=== PATIENT | male | born 1960 | race Caucasian/White ===

== ENCOUNTER 2016-08-09 20:53 | Emergency (ER) | payer MEDICARE ==
[2016-08-09] MEDS ORDERED: PANTOPRAZOLE SODIUM 40 MG VIAL IV ONE (22:07)
[2016-08-09] MEDS ORDERED: METOCLOPRAMIDE HCL ORAL SOLN 10 MG/10 ML UDCUP PO ONE (22:08)
[2016-08-09] MEDS ORDERED: LIDOCAINE 2% VISCOUS SOLN 20 ML UDCUP PO ONE (22:08)
[2016-08-09] MEDS ORDERED: MAG HYDROX/AL HYDROX/SIMETH SUSP 30 ML UDCUP PO ONE (22:08)
--- NOTE | 2016-08-09 22:20 | ER Document Report ---
ED General - General Chief Complaint: Chest Pain Stated Complaint: CHEST PAIN Mode of Arrival: Ambulatory Information source: Patient Notes: This is a 55-year-old male with multiple medical problems to include diabetes, hypertension, chronic pain and chest pain who presents with chest discomfort for the past 3 or 4 hours. He states that he was just sitting on the couch when he developed sudden onset of sharp central chest pain, radiating to L neck and LUE. No shortness of breath. Nausea, no vomiting. He does say that he has broken out in a sweat with this. The pain has been constant for the past 3- 4 hours. Of note, pt states that he last had a cardiac cath at [facility] March 2016 and was told that it was "normal". 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 He is allergic to aspirin. Last po was nachos and taco at about 1300 today. Also, pt has history of chronic pain and has been trying to stop taking his daily dilaudid... he has not had it in several days. TRAVEL OUTSIDE OF THE [place] IN LAST 30 DAYS: No - Related Data Allergies/Adverse Reactions: ketorolac tromethamine [From Toradol] Allergy (Unknown, Verified 10/23/13 10:51) promethazine HCl [From Phenergan] Allergy (Unknown, Verified 10/23/13 10:51) aspirin [Aspirin] Allergy (Verified 10/23/13 10:51) Hives Past Medical History - General Information source: Patient, [facility] Records - Social History Smoking Status: Former Smoker Frequency of alcohol use: None Drug Abuse: None Lives with: Family Family History: CAD Patient has suicidal ideation: No Patient has homicidal ideation: No - Past Medical History Cardiac Medical History: Reports: Hx DVT, Hx Hypertension, Hx Pulmonary Embolism Pulmonary Medical History: Denies: Hx Tuberculosis Endocrine Medical History: Reports: Hx Diabetes Mellitus Type 2 Renal/ Medical History: Denies: Hx Peritoneal Dialysis GI Medical History: Reports: Hx Gastroesophageal Reflux Disease, Other - pancreatitis Psychiatric Medical History: Reports: Hx Depression Past Surgical History: Reports: Hx Abdominal Surgery - x3 related to the pancreatitis and pseudocyst, Hx Cholecystectomy, Hx Orthopedic Surgery - Right femur, right knee - Immunizations Hx Diphtheria, Pertussis, Tetanus Vaccination: Yes Review of Systems - Review of Systems Notes: REVIEW OF SYSTEMS: CONSTITUTIONAL : Denies fever, chills, or sweats. Denies recent illness. EENT: Denies eye, ear, throat, or mouth pain or symptoms. Denies nasal or sinus congestion. CARDIOVASCULAR: As per history of present illness RESPIRATORY: Denies cough, cold, or chest congestion. Denies shortness of breath, difficulty breathing, or wheezing. GASTROINTESTINAL: Denies abdominal pain. Denies nausea, vomiting, or diarrhea. GENITOURINARY: Denies difficulty urinating, painful urination, burning, frequency, or blood in urine. MUSCULOSKELETAL: Denies neck or back pain or joint pain or swelling. SKIN: Denies rash or skin lesions. HEMATOLOGIC : Denies easy bruising or bleeding. LYMPHATIC: Denies swollen, enlarged glands. NEUROLOGICAL: Denies altered mental status or loss of consciousness. Denies headache. PSYCHIATRIC: Denies anxiety or stress or depression. ALL OTHER SYSTEMS REVIEWED AND NEGATIVE. Physical Exam - Vital signs Vitals: Temp Pulse Resp BP Pulse Ox 98.7 F 88 20 141/84 H 97 08/09/16 21:06 08/09/16 21:06 08/09/16 21:06 08/09/16 21:06 08/09/16 21:06 - Notes Notes: PHYSICAL EXAMINATION: GENERAL: Well-appearing, obese adult male pleasant and conversant and in no acute distress. HEAD: Atraumatic, normocephalic. EYES: Pupils equal round and reactive to light, extraocular movements intact, sclera anicteric, conjunctiva are normal. ENT: nares patent, oropharynx clear without exudates. Moist mucous membranes. NECK: Normal range of motion, supple without lymphadenopathy LUNGS: Breath sounds clear to auscultation bilaterally and equal. No wheezes rales or rhonchi. HEART: Regular rate and rhythm without murmurs ABDOMEN: Soft, mild diffuse TTP (pt states this is his chronic pain), multiple well healed surgical scars on abdominal wall, normoactive bowel sounds. No guarding, no rebound. No masses appreciated. EXTREMITIES: Normal range of motion, no pitting or edema. NEUROLOGICAL: Cranial nerves grossly intact. Normal speech. No gross focal motor or sensory deficits appreciated. PSYCH: Normal mood, normal affect. SKIN: Warm, Dry, normal turgor, no rashes or lesions noted. Course - Re-evaluation Re-evalutation: 08/10/16 01:47 Pt reports continued pain 6-710 after Dilaudid. CTA negative for PE although technically limited study. EKG is abnormal here, but old EKG not available. Have placed call to [facility] cardiac connection to discuss with trial manager , as I do not have access to old EKG or to cath report from last year. 08/10/16 02:22 Discussed with cardiology at [facility] Dr. Patel who confirms that cardiac cath performed 03/26/16 demonstrated normal coronary arteries. She will find old EKG and will call me back. 08/10/16 02:32 Dr. Patel confirms that prior EKG shows downsloping ST depression in lateral leads. 08/10/16 02:47 At this point, chest pain has resolved, EKG unchanged, Troponin neg x 2 and pt with normal coronaries on cath 6 months ago. Pt is stable for discharge from a cardiac standpoint. I feel that some component of this pain may be secondary to his decreased daily narcotic use recently. He is encouraged to call his metal milling machine operator and his PCP tomorrow to arrange follow up this week. Also follow up with pain clinic. Strict return precautions discussed. He and his family are very comfortable with this plan, all questions answered. - Vital Signs Vital signs: Temp Pulse Resp BP Pulse Ox 98.7 F 88 17 132/87 H 96 08/09/16 21:06 08/09/16 21:06 08/10/16 02:01 08/10/16 02:01 08/10/16 02:01 - Laboratory Result Diagrams: 08/09/16 22:14 08/09/16 22:14 Laboratory results interpreted by me: 08/09/16 08/09/16 22:14 22:14 RDW 14.3 H Glucose 183 H Creatine Kinase 48 L - Diagnostic Test Radiology reviewed: Reports reviewed - Chest x-ray negative Discharge - Discharge Clinical Impression: Chest pain Qualifiers: Chest pain type: unspecified Qualified Code(s): R07.9 - Chest pain, unspecified Condition: Stable Disposition: HOME, SELF-CARE Additional Instructions: CHEST PAIN OF UNCLEAR CAUSE: The exact cause of your chest pain isn't clear. Fortunately, there is no evidence of a dangerous medical condition. Further testing may be required to find the source of the pain. Most often, we find that this pain is coming from the chest wall -- the muscles or rib joints in the chest. But chest pain can come from the lung and lung lining, the esophagus, the heart valves or heart lining, and even the stomach or gallbladder. Rest. Eat lightly until the pain is gone. We may prescribe medicine for pain and inflammation. You should call the physician immediately if the pain radiates to the shoulder, jaw or arms; if you start to run a fever or develop a cough; or if you develop shortness of breath, or other new or alarming symptoms. ACID REFLUX DISEASE (GERD): Gastro-Esophageal Reflux Disease (GERD) is caused by stomach acid refluxing back up into the esophagus. The valve at the end of the esophagus may be weak. This is common in persons with a hiatal hernia. GERD symptoms can include indigestion, chest pain, heartburn, or food "sticking." Certain foods, alcohol, and aspirin can make GERD worse. Treatment depends on the severity. Usually, antacids or acid-suppressing medicines are used. When the esophagus is acutely inflamed, the physician will often prescribe membrane-protective drugs such as Carafate. Some patients benefit from medication such as Reglan that tightens the valve at the top of the stomach. Avoid those foods that bring on your symptoms. For many people, these foods are coffee, chocolate, onions, garlic, and carbonated drinks. Don't use alcohol, aspirin, caffeine, or tobacco. Don't eat late at night -- within 4 hours of bedtime. Don't over-eat. If necessary, elevate the head of your bed about 4 inches so that stomach acid will not roll up into your esophagus. Call the doctor if you develop severe chest pain, inability to swallow fluids, fever, or worsening symptoms. FOLLOW-UP CARE: If you have been referred to a physician for follow-up care, call the physician s office for an appointment as you were instructed or within the next two days. If you experience worsening or a significant change in your symptoms, notify the physician immediately or return to the Emergency Department at any time for re-evaluation. As we discussed, please call your PCP and your metal milling machine operator tomorrow to discuss close follow up this week. Return to the ER for any worsening symptoms or concerns. Referrals: EJ MIRANDA MD [Primary Care Provider] - Follow up in 3-5 days
[2016-08-09 22:28] LABS: ABSOLUTE BASOPHILS # (AUTO) 0.1 10^3/uL (0.0-0.2); ABSOLUTE EOSINOPHILS # (AUTO) 0.1 10^3/uL (0.0-0.6); ABSOLUTE LYMPHOCYTES (AUTO) 1.4 10^3/uL (0.5-4.7); ABSOLUTE MONOCYTES (AUTO) 0.7 10^3/uL (0.1-1.4); ABSOLUTE NEUT (AUTO) 4.8 10^3/uL (1.7-8.2); BASOPHILS % (AUTO) 0.8 % (0-2); EOSINOPHILS % (AUTO) 1.2 % (0-6); HEMATOCRIT 41.8 % (37.9-51.0); HEMOGLOBIN 14.2 g/dL (13.5-17.0); HGB HCT DIFFERENCE 0.8; MEAN CORPUSCULAR HEMOGLOBIN 30.1 pg (27.0-33.4); MEAN CORPUSCULAR VOLUME 89 fl (80-97); RED BLOOD COUNT 4.72 10^6/uL (4.35-5.55); RED CELL DISTRIBUTION WIDTH 14.3 % (11.5-14.0)
[2016-08-09 22:52] LABS: ALANINE AMINOTRANSFERASE 33 U/L (21-72); ALBUMIN 4.1 g/dL (3.5-5.0); ALKALINE PHOSPHATASE 96 U/L (38-126); ANION GAP 10 (5-19); ASPARTATE AMINO TRANSFERASE 22 U/L (17-59); BILIRUBIN,DIRECT 0.2 mg/dL (0.0-0.4); BILIRUBIN,TOTAL 0.5 mg/dL (0.2-1.3); BLOOD UREA NITROGEN 16 mg/dL (7-20); CALCIUM 9.7 mg/dL (8.4-10.2); CARBON DIOXIDE 26 mmol/L (22-30); CHLORIDE 103 mmol/L (98-107); CREATINE KINASE 48 U/L (55-170); CREATININE RESULT 0.96 mg/dL (0.52-1.25); DIGOXIN 0.96 ng/mL (0.8-2.0); GLUCOSE 183 mg/dL (75-110); POTASSIUM 4.5 mmol/L (3.6-5.0); SODIUM 138.8 mmol/L (137-145); TOTAL PROTEIN 7.2 g/dL (6.3-8.2)
[2016-08-09 23:03] LABS: TROPONIN I < 0.012 ng/mL
[2016-08-09] MEDS ORDERED: HYDROMORPHONE HCL INJ/PF 2 MG/ML AMPULE IV ONE (23:25)
--- NOTE | 2016-08-10 00:11 | EKG REPORT ---
SEVERITY:- NORMAL ECG - SINUS RHYTHM : Confirmed by: Lali Max 10-Aug-2016 00:11:10
--- NOTE | 2016-08-10 00:13 | EKG REPORT ---
SEVERITY:- ABNORMAL ECG - SINUS RHYTHM NONSPECIFIC INTRAVENTRICULAR CONDUCTION DELAY : Confirmed by: Lali Max 10-Aug-2016 00:11:30
[2016-08-10] MEDS ORDERED: HYDROMORPHONE HCL INJ/PF 2 MG/ML AMPULE IV ONE (01:41)
[2016-08-10 03:24] VITALS: BP 118/76
== END 2016-08-10 03:45 | disposition home or self-care (01) ==
LOC: ER 20:53
DX: R07.9 Chest pain, unspecified (principal); R11.0 Nausea; R61 Generalized hyperhidrosis; E11.9 Type 2 diabetes mellitus without complications; I10 Essential (primary) hypertension; G89.29 Other chronic pain; R10.817 Generalized abdominal tenderness; Z88.6 Allergy status to analgesic agent; Z88.8 Allergy status to other drugs, medicaments and biological substances; Z87.891 Personal history of nicotine dependence; Z86.718 Personal history of other venous thrombosis and embolism; Z86.711 Personal history of pulmonary embolism
CPT/HCPCS: 93005; 96376; 99285; 96374; 96375; 36415; 82553; 82550; 80162; 85025; 80053; 84484; 71010; 71275; 93010; J3490; A9270; J1170; C9113; S0164

== ENCOUNTER 2016-08-28 08:34 | Day surgery (SDC) | payer MEDICARE ==
[~2016-08-28 08:34] MED LIST: CHONDR SU A NA/HYALUR INTRAOC KIT (SURGICARE) ONE; EPINEPHRINE INJ/PF 1 MG/1 ML AMPULE ONE; KETOROLAC TROMETHAMINE 0.45% 4 DROP/0.4 ML DROPERETTE OS PRN; LIDOCAINE 1% INJ-PF (10 MG/ML) 30 ML SDV ONE
[2016-08-28] MEDS: TROPICAMIDE 1% OPH SOLN 3 ML OS PRN ×3 (08:55→09:16)
[2016-08-28] MEDS: BESIFLOXACIN HCL 0.6% OPH SUSP 5 ML BOTTLE OS PRN ×4 (08:55→10:04)
[2016-08-28] MEDS: CYCLOPENTOLATE 0.2%/PHENYLEPHRINE 1% OPH SOLN 2 ML OS PRN ×3 (08:55→09:16)
[2016-08-28] MEDS: TETRACAINE HCL 0.5% OPH SOLN 2 ML OS PRN ×3 (08:56→09:32)
[2016-08-28] MEDS ORDERED: MIDAZOLAM 2 MG/2 ML INJ ONE ×2 (08:59→10:11)
--- NOTE | 2016-08-28 19:43 | SURGICARE DISCHARGE SUMMARY E ---
[facility] Discharge Summary NAME: CARMEN RAZO AGE: 56Y ADMITTED: 08/28/2016 DISCHARGED: 08/28/2016 HISTORY OF PRESENT ILLNESS AND HOSPITAL COURSE: This is a 65-year-old male who underwent complex cataract extraction of with use of a Malyugin ring. DIAGNOSES: 1. Cataract, left eye. 2. Pupil miosis, left eye. HOSPITAL COURSE: He underwent surgery because he was having problems seeing people's faces and feels off balance secondary to blurred vision in his left eye. DISCHARGE INSTRUCTIONS: 1. He should be on a regular diet. 2. No bending at the waist. 3. No heavy lifting. 4. He should use Besivance, Ilevro, and Durezol at 3 p.m. and 8 p.m. and sleep with a rigid shield. 5. I will see him for his one-day postoperative tomorrow. DICTATING PHYSICIAN: ERNESTINE KRISHNAMURTHY M.D. [id number] PHY#: [id number] ID: [id number] JOB#: [id number] ACCT: [id number] cc:ERNSETINE KRISHNAMURTHY M.D. >
--- NOTE | 2016-08-28 19:43 | SURGICARE OPERATIVE REPORT E ---
[facility] Operative Report NAME: CARMEN RAZO AGE: 56Y DATE OF SURGERY: 08/28/2016 ROOM: PREOPERATIVE DIAGNOSES: 1. Cataract, left eye. 2. Pupil miosis, left eye. POSTOPERATIVE DIAGNOSES: 1. Cataract, left eye. 2. Pupil miosis, left eye. OPERATION: Complex cataract extraction with use of Malyugin ring due to a very miotic pupil. SURGEON: ERNESTINE KRISHNAMURTHY M.D. ANESTHESIA: Topical. PROCEDURE: After obtaining appropriate consent, the patient's right eye was prepped and draped in sterile fashion as well as the surgeon in a sterile manner and cataract surgery was started. First a paracentesis blade was used to make a small side-port incision. Viscoelastic was used to inflate the anterior chamber. Next a 2.4 mm incision was made with the paracentesis blade. A continuous capsulorrhexis incision was made using a cystotome and Utrata forceps. Following this hydrodissection was carried out to make the lens fully loose and mobile and it was rotated 90 degrees. Following this, a ipvpfp-vpg-jlocert technique was used to phacoemulsify the lens with a CDE of 11.09. The remaining cortex was removed with irrigation/aspiration. Provisc was instilled into the capsular bag to inflate the bag. A SN60WF, 21.5 diopter lens was placed. The remaining viscoelastic material was removed with irrigation/aspiration. Following this, a 10-0 nylon suture was used to close the incision and it was found to be watertight. Vigamox was instilled in the eye and a protective shield was placed over the eye. The patient returned to the postoperative recovery in stable condition. Prior to making the capsulorrhexis, a Malyugin ring was inserted due to a very miotic pupil. This was removed at the end of the case. DICTATING PHYSICIAN: ERNESTINE KRISHNAMURTHY M.D. [id number] PHY#: [id number] ID: [id number] JOB#: [id number] ACCT: [id number] cc:ERNESTINE KRISHNAMURTHY M.D. >
== END 2016-08-28 11:01 | disposition home or self-care (01) ==
LOC: SC 08:34
PROVIDERS: ATTEND Internal Medicine
PROC: 08RK3JZ Replacement of Left Lens with Synthetic Substitute, Percutaneous Approach (ICD-10-PCS; principal; 2016-08-28 09:30)
DX: H25.042 Posterior subcapsular polar age-related cataract, left eye (principal); H57.03 Miosis; E11.9 Type 2 diabetes mellitus without complications; K21.9 Gastro-esophageal reflux disease without esophagitis; I10 Essential (primary) hypertension; I49.9 Cardiac arrhythmia, unspecified; Z79.84 Long term (current) use of oral hypoglycemic drugs; Z79.899 Other long term (current) drug therapy; Z88.6 Allergy status to analgesic agent; Z88.5 Allergy status to narcotic agent; Z88.8 Allergy status to other drugs, medicaments and biological substances; Z87.891 Personal history of nicotine dependence; Z79.01 Long term (current) use of anticoagulants
CPT/HCPCS: 66982; 82962; V2632; J2250; J3490 ×2; A9270; J0171; 142

== ENCOUNTER 2016-12-27 21:22 | Observation (INO) | payer MEDICARE ==
[2016-12-27] MEDS ORDERED: NORMAL SALINE 1000 ML 1,000 ML IV ONE (21:31)
--- NOTE | 2016-12-27 21:32 | ER Document Report ---
ED General - General Stated Complaint: CHEST PAIN,SHORTNESS OF BREATH Time Seen by Provider: 12/27/16 21:29 Cannot obtain history due to: Unstable vital signs Notes: Patient is a 56-year-old male past medical history of a pulmonary embolus in the past currently on apixaban, hypertension, morbid obesity, who presents with acute onset of bilateral chest pain. Patient describes it as an abrupt onset of bilateral chest pressure without radiation of the pain. Nothing improves or worsens the pain. Notes an associated dyspnea with nausea but no vomiting. States this feels similar to when he had a pulmonary embolus in the past. Denies any missed doses of apixaban. He does arrive by EMS. History is limited at time of arrival is patient is ill in appearance, tachycardic and tachypneic TRAVEL OUTSIDE OF THE [place] IN LAST 30 DAYS: No - Related Data Allergies/Adverse Reactions: ketorolac tromethamine [From Toradol] Allergy (Unknown, Verified 12/27/16 22:34) promethazine HCl [From Phenergan] Allergy (Unknown, Verified 12/27/16 22:34) aspirin [Aspirin] Allergy (Verified 12/27/16 22:34) Hives Home Medications: Current Home Medications Cyanocobalamin (Vitamin B-12) [Vitamin B-12] 1,000 mcg SL DAILY 12/27/16 [ History] Fluticasone Propionate [Flonase Nasal Laura 50 Mcg/Laura 16 gm] 2 puff IH DAILY 12/27/16 [History] Metoprolol Tartrate [Lopressor] 25 mg PO BID 12/27/16 [History] Red Yeast Rice 1,200 mg PO BID 12/27/16 [History] Valacyclovir HCl [Valacyclovir] 500 mg PO DAILY 12/27/16 [History] Past Medical History - General Information source: Patient - Social History Smoking Status: Never Smoker Frequency of alcohol use: None Drug Abuse: None Lives with: Spouse/Significant other Family History: CAD - Past Medical History Cardiac Medical History: Reports: Hx DVT, Hx Hypertension, Hx Pulmonary Embolism Denies: Hx Heart Attack Pulmonary Medical History: Denies: Hx Asthma, Hx Tuberculosis Neurological Medical History: Denies: Hx Cerebrovascular Accident, Hx Seizures Endocrine Medical History: Reports: Hx Diabetes Mellitus Type 2 Renal/ Medical History: Denies: Hx Peritoneal Dialysis GI Medical History: Reports: Hx Gastroesophageal Reflux Disease. Denies: Hx Hepatitis, Hx Hiatal Hernia, Hx Ulcer Psychiatric Medical History: Reports: Hx Depression Infectious Medical History: Denies: Hx Hepatitis Past Surgical History: Reports: Hx Abdominal Surgery - x3 related to the pancreatitis and pseudocyst, Hx Cholecystectomy, Hx Orthopedic Surgery - Right femur, right knee. Denies: Hx Open Heart Surgery, Hx Pacemaker - Immunizations Hx Diphtheria, Pertussis, Tetanus Vaccination: Yes Review of Systems - Review of Systems Notes: Constitutional: Negative for fever. HENT: Negative for sore throat. Eyes: Negative for visual changes. Cardiovascular: Positive for chest pain. Respiratory: Positive for shortness of breath. Gastrointestinal: Negative for abdominal pain, vomiting or diarrhea. Genitourinary: Negative for dysuria. Musculoskeletal: Negative for back pain. Skin: Negative for rash. Neurological: Negative for headaches, weakness or numbness. 10 point ROS negative except as marked above and in HPI. Physical Exam - Vital signs Vitals: Pulse Ox 94 12/27/16 21:24 Interpretation: Tachycardic, Tachypneic Notes: PHYSICAL EXAMINATION: GENERAL: Appears uncomfortable, diaphoretic HEAD: Atraumatic, normocephalic. EYES: Pupils equal round and reactive to light, extraocular movements intact, sclera anicteric, conjunctiva are normal. ENT: nares patent, oropharynx clear without exudates. Moderately dry mucous membranes. NECK: Normal range of motion, supple without lymphadenopathy LUNGS: Breath sounds clear to auscultation bilaterally and equal. No wheezes rales or rhonchi. HEART: Regular tachycardia without murmurs ABDOMEN: Soft, nontender, normoactive bowel sounds. No guarding, no rebound. No masses appreciated. EXTREMITIES: Normal range of motion, no pitting or edema. No cyanosis. NEUROLOGICAL: No focal neurological deficits. Moves all extremities spontaneously and on command. PSYCH: Normal mood, normal affect. SKIN: Warm, Dry, normal turgor, no rashes or lesions noted. Course - Re-evaluation Re-evalutation: 12/27/16 21:31 Patient presents with a history and exam most concerning for a possible acute pulmonary embolus. He presents tachycardic, rates to the 120s-130s as well as mild dyspnea. 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 He does not however have an IVC filter. Given patient's persistent tachycardia and need for supplement oxygen at this time he is critically ill and will require frequent reassessments. A stat portal chest x-ray, labs and CT of the chest will be obtained. I was unable unfortunately to obtain an appropriate cardiac view to evaluate for right heart strain due to patient's morbid obesity. 12/27/16 22:55 CTA chest is normal without any evidence of acute pulmonary embolus. Labs including a troponin are normal. Given patient's presentation, will obtain a second troponin. Will provide nitroglycerin at this time continue to monitor closely. 12/27/16 23:33 Patient's tachycardia is moderately improved although he remains mildly tachycardic at 108 at this time. Will give morphine for pain control as nitro has not provided pain relief. 12/28/16 01:16 Patient has had improvement of his heart rate after receiving 1 mg of IV Dilaudid as he states that morphine does not typically work. Second troponin remains normal. I have discussed with Dr. Park who will admit. - Vital Signs Vital signs: Temp Pulse Resp BP Pulse Ox 18 119/77 97 12/28/16 01:36 12/28/16 01:36 12/28/16 01:36 - Laboratory Result Diagrams: 12/27/16 21:28 12/27/16 21:28 Laboratory results interpreted by me: 12/27/16 12/27/16 21:28 21:28 WBC 11.7 H Absolute Neutrophils 8.4 H BUN 22 H Glucose 122 H - Diagnostic Test Radiology reviewed: Image reviewed, Reports reviewed Radiology results interpreted by me: 12/28/16 01:16 Chest x-ray: No acute infiltrate or pneumothorax - EKG Interpretation by Me Additional EKG results interpreted by me: 12/28/16 01:17 Sinus tachycardia, rate 122. ST depressions in V2 through 4 change from prior. QTC is 405. Critical Care Note - Critical Care Note Total time excluding time spent on procedures (mins): 37 Comments: Critical care time spent obtaining history from patient or surrogate, discussions with consultants, development of treatment plan with patient or surrogate, evaluation of patient's response to treatment, examination of patient , ordering and performing treatments and interventions, ordering and review of laboratory studies, re-evaluation of patient's condition, ordering and review of radiographic studies and review of old charts Discharge - Discharge Clinical Impression: Sinus tachycardia Chest pain Qualifiers: Chest pain type: unspecified Qualified Code(s): R07.9 - Chest pain, unspecified Condition: Fair Disposition: ADMITTED OBSERVATION Admitting Provider: [facility] Admitted: Telemetry
[2016-12-27 21:46] LABS: ABSOLUTE BASOPHILS # (AUTO) 0.1 10^3/uL (0.0-0.2); ABSOLUTE EOSINOPHILS # (AUTO) 0.1 10^3/uL (0.0-0.6); ABSOLUTE MONOCYTES (AUTO) 1.1 10^3/uL (0.1-1.4); ABSOLUTE NEUT (AUTO) 8.4 10^3/uL (1.7-8.2); BASOPHILS % (AUTO) 0.8 % (0-2); EOSINOPHILS % (AUTO) 0.8 % (0-6); HEMATOCRIT 47.2 % (37.9-51.0); HEMOGLOBIN 15.9 g/dL (13.5-17.0); HGB HCT DIFFERENCE 0.5; LYMPHOCYTES % (AUTO) 17.3 % (13-45); MEAN CORPUSCULAR HEMOGLOBIN 30.6 pg (27.0-33.4); MEAN CORPUSCULAR HGB CONC 33.7 g/dL (32.0-36.0); MEAN CORPUSCULAR VOLUME 91 fl (80-97); MONOCYTES % (AUTO) 9.5 % (3-13); RED CELL DISTRIBUTION WIDTH 13.3 % (11.5-14.0); SEGMENTED NEUTROPHILS % (AUTO) 71.6 % (42-78); WHITE BLOOD COUNT 11.7 10^3/uL (4.0-10.5)
[2016-12-27 21:58] LABS: ANION GAP 12 (5-19); BLOOD UREA NITROGEN 22 mg/dL (7-20); CALCIUM 10.1 mg/dL (8.4-10.2); CARBON DIOXIDE 24 mmol/L (22-30); CHLORIDE 102 mmol/L (98-107); CREATININE RESULT 1.24 mg/dL (0.52-1.25); GLUCOSE 122 mg/dL (75-110); POTASSIUM 4.4 mmol/L (3.6-5.0); SODIUM 137.6 mmol/L (137-145)
[2016-12-27 22:00] LABS: PROTHROMBIN TIME 13.9 SEC (11.4-15.4)
--- NOTE | 2016-12-27 22:18 | RADIOLOGY REPORT (SQ) ---
EXAM DESCRIPTION: CHEST SINGLE VIEW COMPLETED DATE/TIME: 12/27/2016 10:03 pm REASON FOR STUDY: sob COMPARISON: CT angio chest 08/10/2016 AP chest 08/09/2016 EXAM PARAMETERS: NUMBER OF VIEWS: One view. TECHNIQUE: Single frontal radiographic view of the chest acquired. RADIATION DOSE: NA LIMITATIONS: None. FINDINGS: LUNGS AND PLEURA: No opacities, masses or pneumothorax. No pleural effusion. MEDIASTINUM AND HILAR STRUCTURES: No masses. Contour normal. HEART AND VASCULAR STRUCTURES: Heart normal in size. Normal vasculature. BONES: No acute findings. HARDWARE: None in the chest. OTHER: No other significant finding. IMPRESSION: NO ACUTE RADIOGRAPHIC FINDING IN THE CHEST. TECHNICAL DOCUMENTATION: JOB ID: [id number]
--- NOTE | 2016-12-27 22:48 | RADIOLOGY REPORT (SQ) ---
EXAM DESCRIPTION: CTA CHEST COMPLETED DATE/TIME: 12/27/2016 10:33 pm REASON FOR STUDY: possible pe COMPARISON: CT angio chest 08/10/2016, 01/16/2011 Chest films 12/27/2016, 08/09/2016 TECHNIQUE: CT scan of the chest performed using helical scanning technique with dynamic intravenous contrast injection. Images reviewed with lung, soft tissue and bone windows. Reconstructed coronal and sagittal MPR images reviewed. Additional 3 dimensional post-processing performed to develop Maximal Intensity Projection images (FL P). All images stored on PACS. All CT scanners at this facility use dose modulation, iterative reconstruction, and/or weight based d osing when appropriate to reduce radiation dose to as low as reasonably achievable (ALARA). [facility]: Dose Right [facility]: CareDose [facility]: Dose Right [facility]: Teradose 4D [facility]: GOkey CONTRAST TYPE AND DOSE: contrast/concentration: Isovue 370.00 mg/ml; Total Contrast Delivered: 157.0 ml; Total Saline Delivered: 187.0 ml RENAL FUNCTION: Creatinine 1.2 RADIATION DOSE: Up-to-date CT equipment and radiation dose reduction techniques were employed. CTDIv ol: 33.1 - 39.7 mGy. DLP: 1506 mGy-cm. . LIMITATIONS: None. FINDINGS: LUNGS AND PLEURA: No masses, infiltrates, pneumothorax. No pleural effusions, calcificati ons. AORTA AND GREAT VESSELS: No aneurysm or dissection. Aberrant right subclavian artery, an anatomic va riant HEART: No pericardial effusion. PULMONARY ARTERIES: No emboli visualized in the main pulmonary arteries or the segmental branches. HILAR AND MEDIASTINAL STRUCTURES: No identified masses or abnormal nodes. HARDWARE: None in the chest. UPPER ABDOMEN: 1 cm cyst sub- diaphragmatic surface left lobe liver. Post cholecystectomy. THYROID AND OTHER SOFT TISSUES: No masses. No adenopathy. BONES: No acute or significant finding. 3D MIPS: Confirm above findings. OTHER: No other significant finding. IMPRESSION: NORMAL CTA OF THE CHEST. NO PULMONARY EMBOLI. TECHNICAL DOCUMENTATION: JOB ID: [id number] Quality ID # [id number]: Final reports with documentation of one or more dose reduction techniques (e.g., Au tomated exposure control, adjustment of the mA and/or kV according to patient size, use of iterative reconstruction technique) 2010 [employer]- All Rights Reserved
[2016-12-27] MEDS ORDERED: NITROGLYCERIN 0.4 MG/TAB 25 TAB/BOTTLE SL PRN (22:54)
[2016-12-27] MEDS ORDERED: MORPHINE SULFATE 10 MG/ML INJ IV PRN (23:30)
[2016-12-27] MEDS ORDERED: HYDROMORPHONE HCL INJ/PF 2 MG/ML AMPULE IV ONE (23:41)
[2016-12-27] MEDS ORDERED: HYDROMORPHONE HCL INJ/PF 2 MG/ML AMPULE ONE (23:43)
[2016-12-28] MEDS ORDERED: NORMAL SALINE 1000 ML 1,000 ML IV ONE (01:14)
[2016-12-28] MEDS ORDERED: METOPROLOL TARTRATE PF/INJ 5 MG/5 ML SDV IV ONE ×2 (01:33→01:36)
[2016-12-28] MEDS ORDERED: DEXTROSE 50%-WATER 25 GM/50 ML DISP.SYRIN IV PRN ×2 (01:58)
[2016-12-28] MEDS ORDERED: ACETAMINOPHEN 325 MG TABLET PO PRN (01:58)
[2016-12-28] MEDS ORDERED: GLUCAGON,HUMAN RECOMB 1 MG INJ IM PRN (01:58)
[2016-12-28] MEDS ORDERED: DEXTROSE 40% GEL 15 GM TUBE PO PRN ×2 (01:58)
[2016-12-28] MEDS ORDERED: INSULIN LISPRO 100 UNIT/ML 3 ML VIAL SUBCUT PRN (01:58)
[2016-12-28] MEDS ORDERED: HYDROMORPHONE HCL 2 MG TABLET PO ONE (04:30)
[2016-12-28] MEDS ORDERED: METOPROLOL TARTRATE 25 MG TABLET PO ONE (04:30)
[2016-12-28 05:01] LABS: CREATINE KINASE MB 0.51 ng/mL (<4.55)
[2016-12-28 05:07] LABS: TROPONIN I < 0.012 ng/mL
[2016-12-28] MEDS ORDERED: HYDROMORPHONE HCL 2 MG TABLET PO PRN ×2 (06:52→10:00)
--- NOTE | 2016-12-28 07:26 | PDOC H&P ---
History of Present Illness Admission Date/PCP: 12/28/16 01:58 Patient complains of: Chest pain History of Present Illness: CARMEN RAZO SR is a 56 year old male with a past medical history of paroxysmal atrial fibrillation, pulmonary embolism on Eliquis, diabetes, hypertension, Dilaudid dependent chronic pain and morbid obesity. He had been in his usual state of health until approximately 6 hours prior to presentation feeling generally unwell and short of breath not improved by rest had an episode of palpitations and bilateral chest pain prompting a call to EMS finding him in sinus tachycardia in the 130s and is brought to the emergency room for evaluation. Initial workup including a CTA is negative for PE and he is referred to the hospitalist for admission. He describes his pain as squeezing 4-5 intensity nonradiating associated with shortness of breath and palpitations at times. Patient has had a negative cardiac catheterization in March 2016. 3 weeks ago he had a reduction in his Lopressor dose from 200 twice daily to 12.5 twice daily. After disclosing this fact he is ordered 5 mg of Lopressor IV resulting in a heart rate of 90 sinus rhythm and resolution of chest pain. Patient denies hypoglycemia, other changes in medications and has not run out of Dilaudid. Past Medical History Cardiac Medical History: Reports: DVT, Hyperlipidema, Hypertension, Pulmonary Embolism Denies: Myocardial Infarction Pulmonary Medical History: Denies: Asthma, Tuberculosis Neurological Medical History: Denies: Seizures Endocrine Medical History: Reports: Diabetes Mellitus Type 2 GI Medical History: Reports: Gastroesophageal Reflux Disease Denies: Hepatitis, Hiatal Hernia Psychiatric Medical History: Reports: Depression Hematology: Denies: Anemia, Sickle Cell Disease Past Surgical History Past Surgical History: Reports: Cholecystectomy, Orthopedic Surgery - Right femur, right knee Denies: Pacemaker Social History Information Source: Patient, Emergency Med Personnel, [facility] Records Lives with: Spouse/Significant other Smoking Status: Never Smoker Frequency of Alcohol Use: None Hx Recreational Drug Use: No Hx Prescription Drug Abuse: No - Advance Directive Resuscitation Status: Full Code Family History Family History: CAD Parental Family History Reviewed: Yes Children Family History Reviewed: Yes Sibling(s) Family History Reviewed.: Yes Medication/Allergy Home Medications: Hydromorphone HCl 8 mg PO Q6HP PRN 08/28/12 Amlodipine Besylate [Norvasc 5 mg Tablet] 2.5 mg PO DAILY 08/27/16 Apixaban [Eliquis 5 mg Tablet] 5 mg PO BID 08/27/16 Cyclosporine 0.05% Oph Emulsio [Restasis 0.05% Opthalmic [place]] 1 drop OP ASDIR PRN 08/27/16 Difluprednate [Durezol] 1 drop OP . 3 & 8 PM TODAY 08/27/16 Digoxin [Lanoxin 0.25 mg Tablet] 0.25 mg PO DAILY 08/27/16 Duloxetine HCl [Cymbalta] 60 mg PO BID 08/27/16 Esomeprazole Magnesium [Nexium] 40 mg PO DAILY 08/27/16 Gabapentin 1,200 mg PO BID 08/27/16 Metformin HCl 500 mg PO BID 08/27/16 Ranolazine [Ranexa 500 mg Tab.sr] 500 mg PO Q12 08/27/16 Cyanocobalamin (Vitamin B-12) [Vitamin B-12] 1,000 mcg SL DAILY 12/27/16 Fluticasone Propionate [Flonase Nasal [place] 50 Mcg/[place] 16 gm] 2 puff IH DAILY 12/27/16 Metoprolol Tartrate [Lopressor] 25 mg PO BID 12/27/16 Red Yeast Rice 1,200 mg PO BID 12/27/16 Valacyclovir HCl [Valacyclovir] 500 mg PO DAILY 12/27/16 Allergies/Adverse Reactions: ketorolac tromethamine [From Toradol] Allergy (Unknown, Verified 12/27/16 22:34) promethazine HCl [From Phenergan] Allergy (Unknown, Verified 12/27/16 22:34) aspirin [Aspirin] Allergy (Verified 12/27/16 22:34) Hives Review of Systems Constitutional: ABSENT: chills, fever(s), headache(s), weight gain, weight loss Eyes: ABSENT: visual disturbances Ears: ABSENT: hearing changes Cardiovascular: ABSENT: chest pain, dyspnea on exertion, edema, orthropnea, palpitations Respiratory: ABSENT: cough, hemoptysis Gastrointestinal: ABSENT: abdominal pain, constipation, diarrhea, hematemesis, hematochezia, nausea, vomiting Genitourinary: ABSENT: dysuria, hematuria Musculoskeletal: ABSENT: joint swelling Integumentary: ABSENT: rash, wounds Neurological: ABSENT: abnormal gait, abnormal speech, confusion, dizziness, focal weakness, syncope Psychiatric: ABSENT: anxiety, depression, homidical ideation, suicidal ideation Endocrine: ABSENT: cold intolerance, heat intolerance, polydipsia, polyuria Hematologic/Lymphatic: ABSENT: easy bleeding, easy bruising Physical Exam Vital Signs: Temp Pulse Resp BP Pulse Ox 97.8 F 96 20 131/80 H 97 12/28/16 03:25 12/28/16 03:25 12/28/16 03:25 12/28/16 03:25 12/28/16 03:25 Intake & Output 12/26/16 12/27/16 12/28/16 11:59 11:59 11:59 Intake Total 870 Output Total 500 Balance 370 Weight 147.5 kg General appearance: PRESENT: no acute distress, well-developed, well-nourished Head exam: PRESENT: atraumatic, normocephalic Eye exam: PRESENT: conjunctiva pink, EOMI, PERRLA. ABSENT: scleral icterus Ear exam: PRESENT: normal external ear exam Mouth exam: PRESENT: moist, tongue midline Neck exam: ABSENT: carotid bruit, JVD, lymphadenopathy, thyromegaly Respiratory exam: PRESENT: clear to auscultation neo. ABSENT: rales, rhonchi, wheezes Cardiovascular exam: PRESENT: RRR. ABSENT: diastolic murmur, rubs, systolic murmur Pulses: PRESENT: normal dorsalis pedis pul Vascular exam: PRESENT: normal capillary refill GI/Abdominal exam: PRESENT: normal bowel sounds, soft. ABSENT: distended, guarding, mass, organolmegaly, rebound, tenderness Rectal exam: PRESENT: deferred Extremities exam: PRESENT: full ROM. ABSENT: calf tenderness, clubbing, pedal edema Neurological exam: PRESENT: alert, awake, oriented to person, oriented to place , oriented to time, oriented to situation, CN II-XII grossly intact. ABSENT: motor sensory deficit Psychiatric exam: PRESENT: appropriate affect, normal mood. ABSENT: homicidal ideation, suicidal ideation Skin exam: PRESENT: dry, intact, warm. ABSENT: cyanosis, rash Results Laboratory Results: 12/28/16 04:23 CK-MB (CK-2) 0.51 Troponin I < 0.012 Impressions: Chest X-Ray 12/27/16 21:30 IMPRESSION: NO ACUTE RADIOGRAPHIC FINDING IN THE CHEST. Chest/Abdomen CTA 12/27/16 21:30 IMPRESSION: NORMAL CTA OF THE CHEST. NO PULMONARY EMBOLI. Assessment & Plan - Diagnosis (1) Chest pain Qualifiers: Chest pain type: unspecified Qualified Code(s): R07.9 - Chest pain, unspecified Is this a current diagnosis for this admission?: Yes Plan: Unclear given history of recent negative cardiac catheterization in March 2016. Possible coronary vasospasm, he is admitted to the telemetry floor with a chest pain care set. (2) Sinus tachycardia Is this a current diagnosis for this admission?: Yes Plan: Most likely secondary to recent abrupt reduction in Lopressor. He is ordered Lopressor 50 twice daily. (3) Chronic pain following surgery or procedure Is this a current diagnosis for this admission?: Yes Plan: Dilaudid dependent, bowel regiment, continuation of home regiment following prescription verification. (4) Diabetes Is this a current diagnosis for this admission?: Yes Plan: Metformin held given CTA, sliding scale insulin ordered. - Time Time Spent: 50 to 70 Minutes - Inpatient Certification Medical Necessity: Need Close Monitoring Due to Risk of Patient Decompensation
--- NOTE | 2016-12-28 07:56 | EKG REPORT ---
SEVERITY:- ABNORMAL ECG - SINUS TACHYCARDIA REPOL ABNRM SUGGESTS ISCHEMIA, DIFFUSE LEADS : Confirmed by: Nils Gross MD 28-Dec-2016 07:56:21
[2016-12-28] MEDS ORDERED: GABAPENTIN 400 MG CAPSULE PO SCH (10:00)
[2016-12-28] MEDS ORDERED: DOCUSATE SODIUM 100 MG CAPSULE PO SCH (10:00)
[2016-12-28] MEDS ORDERED: APIXABAN 5 MG TABLET PO SCH (10:00)
[2016-12-28] MEDS ORDERED: FLUTICASONE NASAL SPRAY 50 MCG/SPRY 120 SPRAY/16 GM NAREB SCH (10:00)
[2016-12-28] MEDS ORDERED: METFORMIN HCL 500 MG TABLET PO SCH (10:00)
[2016-12-28] MEDS ORDERED: LANSOPRAZOLE 30 MG TAB.RAP.DR PO SCH (10:00)
[2016-12-28] MEDS ORDERED: METOPROLOL TARTRATE 50 MG TABLET PO SCH (10:00)
[2016-12-28] MEDS ORDERED: DULOXETINE HCL 30 MG CAPSULE.DR PO SCH (10:00)
[2016-12-28 10:09] VITALS: BP 131/80
--- NOTE | 2016-12-28 10:27 | PDOC DISCHARGE SUMMARY ---
General - Admit/Disc Date/PCP Admission Date/Primary Care Provider: 12/28/16 01:58 Discharge Date: 12/28/16 - Discharge Diagnosis (1) Chest pain Is this a current diagnosis for this admission?: Yes Summary: First 2 troponins were less than 0.012mg/dl, patient had an EGD a week ago and he reports gastroparesis and Kidd's esophagus. He had a negative heart catheterization 9 months ago. He asked to be given Dilaudid IV rather than his normal dose of dilaudid by mouth. I explained to patient and his that if next troponin remains negative we would be discharging him home and did not therefore feel comfortable giving him Dilaudid IV. He then wished to be discharged home. CTA of the chest and abdomen was unremarkable (2) Diabetes Is this a current diagnosis for this admission?: Yes Summary: Continue metformin (3) Sinus tachycardia Is this a current diagnosis for this admission?: Yes Summary: Resolved with increasing metoprolol 50 mg bid, he was taking 200 mg bid and was recently reduced to 12.5 mg bid (4) Chronic pain following surgery or procedure Is this a current diagnosis for this admission?: Yes (5) DVT (deep venous thrombosis) Is this a current diagnosis for this admission?: Yes Summary: Continue eliquis two times daily - Additional Information Resuscitation Status: Full Code Discharge Diet: As Tolerated, Diabetic Discharge Activity: Activity As Tolerated, Balance Activity w/Rest Home Medications: Hydromorphone HCl 8 mg PO Q6HP PRN 08/28/12 Amlodipine Besylate [Norvasc 5 mg Tablet] 2.5 mg PO DAILY 08/27/16 Apixaban [Eliquis 5 mg Tablet] 5 mg PO BID 08/27/16 Cyclosporine 0.05% Oph Emulsio [Restasis 0.05% Oph Emulsion Pf 0.4 ml] 1 drop OP ASDIR PRN 08/27/16 Difluprednate [Durezol] 1 drop OP . 3 & 8 PM TODAY 08/27/16 Digoxin [Lanoxin 0.25 mg Tablet] 0.25 mg PO DAILY 08/27/16 Duloxetine HCl [Cymbalta] 60 mg PO BID 08/27/16 Esomeprazole Magnesium [Nexium] 40 mg PO DAILY 08/27/16 Gabapentin 1,200 mg PO BID 08/27/16 Metformin HCl 500 mg PO BID 08/27/16 Ranolazine [Ranexa 500 mg Tab.sr] 500 mg PO Q12 08/27/16 Cyanocobalamin (Vitamin B-12) [Vitamin B-12] 1,000 mcg SL DAILY 12/27/16 Fluticasone Propionate [Flonase Nasal [place] 50 Mcg/[place] 16 gm] 2 puff IH DAILY 12/27/16 Metoprolol Tartrate [Lopressor] 25 mg PO BID 12/27/16 Red Yeast Rice 1,200 mg PO BID 12/27/16 Valacyclovir HCl [Valacyclovir] 500 mg PO DAILY 12/27/16 History of Present Illness History of Present Illness: CARMEN RAZO SR is a 56 year old male Physical Exam Vital Signs: Temp Pulse Resp BP Pulse Ox 97.7 F 70 17 131/80 H 97 12/28/16 10:06 12/28/16 10:06 12/28/16 10:06 12/28/16 10:06 12/28/16 10:06 Intake & Output 12/27/16 12/28/16 12/29/16 06:59 06:59 06:59 Intake Total 870 Output Total 500 Balance 370 Weight 147.5 kg General appearance: PRESENT: no acute distress, morbidly obese, well-developed, well-nourished Head exam: PRESENT: atraumatic, normocephalic Eye exam: PRESENT: conjunctiva pink, EOMI, PERRLA. ABSENT: scleral icterus Ear exam: PRESENT: normal external ear exam Mouth exam: PRESENT: moist, tongue midline Neck exam: ABSENT: carotid bruit, JVD, lymphadenopathy, thyromegaly Respiratory exam: PRESENT: clear to auscultation neo. ABSENT: rales, rhonchi, wheezes Cardiovascular exam: PRESENT: RRR. ABSENT: diastolic murmur, rubs, systolic murmur Pulses: PRESENT: normal dorsalis pedis pul Vascular exam: PRESENT: normal capillary refill GI/Abdominal exam: PRESENT: normal bowel sounds, soft, tenderness - generalized tenderness to palpation. ABSENT: distended, guarding, mass, organolmegaly, rebound Rectal exam: PRESENT: deferred Extremities exam: PRESENT: full ROM. ABSENT: calf tenderness, clubbing, pedal edema Neurological exam: PRESENT: alert, awake, oriented to person, oriented to place , oriented to time, oriented to situation, CN II-XII grossly intact. ABSENT: motor sensory deficit Psychiatric exam: PRESENT: agitated Skin exam: PRESENT: dry, intact, warm. ABSENT: cyanosis, rash Results Laboratory Results: 12/28/16 04:23 CK-MB (CK-2) 0.51 Troponin I < 0.012 Impressions: Chest X-Ray 12/27/16 21:30 IMPRESSION: NO ACUTE RADIOGRAPHIC FINDING IN THE CHEST. Chest/Abdomen CTA 12/27/16 21:30 IMPRESSION: NORMAL CTA OF THE CHEST. NO PULMONARY EMBOLI. Qualifiers PATEINT BEING DISCHARGED WITH ANY OF THE FOLLOWING DIAGNOSIS?: No Plan Discharge Plan: Home with Time Spent: Less than 30 Minutes
--- NOTE | 2016-12-28 16:37 | Progress Note ---
Provider Note Provider Note: Review of patient on the [place] Controlled Substance Registry revealed his last rx for Dilaudid was given in 09/2016.
== END 2016-12-28 10:30 | disposition home or self-care (01) ==
LOC: ER 21:22 → EH 12-28 01:53 → UNDOADMOB 12-28 01:53 → EH 12-28 01:58 → 4S 12-28 02:50
PROVIDERS: ADMIT Internal Medicine; ATTEND Internal Medicine
DX: R07.9 Chest pain, unspecified (principal); K31.84 Gastroparesis; K22.70 Barrett's esophagus without dysplasia; E11.9 Type 2 diabetes mellitus without complications; R00.0 Tachycardia, unspecified; I82.409 Acute embolism and thrombosis of unspecified deep veins of unspecified lower extremity; G89.28 Other chronic postprocedural pain; F11.20 Opioid dependence, uncomplicated; I48.0 Paroxysmal atrial fibrillation; I10 Essential (primary) hypertension; E66.01 Morbid (severe) obesity due to excess calories; Z68.41 Body mass index [BMI] 40.0-44.9, adult; Z86.711 Personal history of pulmonary embolism; Z79.01 Long term (current) use of anticoagulants; Z82.49 Family history of ischemic heart disease and other diseases of the circulatory system; Z86.718 Personal history of other venous thrombosis and embolism; Z90.49 Acquired absence of other specified parts of digestive tract; Z79.84 Long term (current) use of oral hypoglycemic drugs
CPT/HCPCS: 93005; 99291; 96361; 96374; 96375; 36415 ×2; 82553; 82962; 83735; 84443; 85025; 85610; 85730; 80048; 84484 ×2; 83880; 71010; 71275; 93010; G0378; A9270 ×7; J3490; J1170; J7030 ×2

== ENCOUNTER 2017-03-31 21:22 | Inpatient (IN) | payer MEDICARE ==
[2017-03-31] MEDS ORDERED: METOPROLOL TARTRATE PF/INJ 5 MG/5 ML SDV IV ONE (21:33)
[2017-03-31] MEDS ORDERED: NORMAL SALINE 1000 ML 1,000 ML IV ONE ×2 (21:44→23:45)
[2017-03-31] MEDS ORDERED: HYDROMORPHONE HCL INJ/PF 2 MG/ML AMPULE IV ONE ×2 (21:44→23:44)
--- NOTE | 2017-03-31 21:44 | ER Document Report ---
ED General - General Stated Complaint: CHEST PAIN Time Seen by Provider: 03/31/17 21:28 Notes: Patient is a 56-year-old male with a past medical history of sinus tachycardia, opiate dependent chronic abdominal pain, prior history of pulmonary embolus currently anticoagulated on apixaban who presents with a 24 hours of progressively worsening shortness of breath, palpitations and lightheadedness. Patient states this feels similar to when he presented back in December and does not feel it when he had pulmonary emboli in the past. Patient of note also had a recent ablation of a Kidd's esophagitis 6 days ago and does note that he has had one dark tarry stool today but denies any additional bloody bowel movements. He does admit that he missed his medications today due to how poorly he was feeling. His main complaint is shortness of breath which she states is constant and worsened by exertion. He states resting moderately improves his symptoms. He notes earlier he had some mild chest heaviness but this is now spontaneously resolved. He denies any associated vomiting but has been quite diaphoretic. TRAVEL OUTSIDE OF THE [place] IN LAST 30 DAYS: No - Related Data Allergies/Adverse Reactions: ketorolac tromethamine [From Toradol] Allergy (Unknown, Verified 12/27/16 22:34) promethazine HCl [From Phenergan] Allergy (Unknown, Verified 12/27/16 22:34) aspirin [Aspirin] Allergy (Verified 12/27/16 22:34) Hives Past Medical History - General Information source: Patient - Social History Smoking Status: Never Smoker Frequency of alcohol use: None Drug Abuse: None Lives with: Spouse/Significant other Family History: CAD - Past Medical History Cardiac Medical History: Reports: Hx DVT, Hx Hypercholesterolemia, Hx Hypertension, Hx Pulmonary Embolism Denies: Hx Heart Attack Pulmonary Medical History: Denies: Hx Asthma, Hx Tuberculosis Neurological Medical History: Denies: Hx Cerebrovascular Accident, Hx Seizures Endocrine Medical History: Reports: Hx Diabetes Mellitus Type 2 Renal/ Medical History: Denies: Hx Peritoneal Dialysis GI Medical History: Reports: Hx Gastroesophageal Reflux Disease. Denies: Hx Hepatitis, Hx Hiatal Hernia, Hx Ulcer Psychiatric Medical History: Reports: Hx Depression Infectious Medical History: Denies: Hx Hepatitis Past Surgical History: Reports: Hx Abdominal Surgery - x3 related to the pancreatitis and pseudocyst, Hx Cholecystectomy, Hx Orthopedic Surgery - Right femur, right knee. Denies: Hx Open Heart Surgery, Hx Pacemaker - Immunizations Hx Diphtheria, Pertussis, Tetanus Vaccination: Yes Review of Systems - Review of Systems Notes: Constitutional: Negative for fever. HENT: Negative for sore throat. Eyes: Negative for visual changes. Cardiovascular: Positive for chest pain. Respiratory: Positive for shortness of breath. Gastrointestinal: Negative for abdominal pain, vomiting or diarrhea. Genitourinary: Negative for dysuria. Musculoskeletal: Negative for back pain. Skin: Negative for rash. Neurological: Negative for headaches, weakness or numbness. 10 point ROS negative except as marked above and in HPI. Physical Exam - Vital signs Interpretation: Hypotensive, Tachycardic, Tachypneic Notes: PHYSICAL EXAMINATION: GENERAL: Pale, diaphoretic, ill in appearance HEAD: Atraumatic, normocephalic. EYES: Pupils equal round and reactive to light, extraocular movements intact, sclera anicteric, conjunctiva are normal. ENT: nares patent, oropharynx clear without exudates. Moderately dry mucous membranes. NECK: Normal range of motion, supple without lymphadenopathy LUNGS: Breath sounds clear to auscultation bilaterally and equal. No wheezes rales or rhonchi. HEART: Regular tachycardia without murmurs. ABDOMEN: Soft, nontender, normoactive bowel sounds. No guarding, no rebound. No masses appreciated. EXTREMITIES: Normal range of motion, no pitting or edema. No cyanosis. NEUROLOGICAL: No focal neurological deficits. Moves all extremities spontaneously and on command. PSYCH: Moderately anxious SKIN: Warm, diaphoretic, normal turgor, no rashes or lesions noted. Course - Re-evaluation Re-evalutation: 03/31/17 21:42 Patient presents with SOB, tachycardia, and chest pain, very similar to prior presentation for which I saw him. He states that he felt very short of breath today and has unfortunately missed all of his medications including his metoprolol which is not currently 200 mg twice daily. Initial EKG shows sinus tachycardia but no immediate ischemic changes. It is a regular rhythm and does not appear consistent with flutter or fibrillation. Patient has been taking his anticoagulation with exception of 4 days last week when he held his apixaban for an endoscopy with associated cauterization of an area of esophagus. On examination, patient is somewhat diaphoretic somewhat pale, and appears uncomfortable. His vitals showed tachycardia and although the initial reading of his blood pressure was 80 systolic and immediate repeat was 105 [address] We will immediately place IV access, begin IV fluids, provide IV metoprolol 5 mg 3 try to regulate his heart rate, obtain labs, chest x-ray and monitor extremely closely. 03/31/17 22:45 Patient's heart rate has improved down to 109 after 3 rounds of 5 mg of metoprolol. We did initially have difficulty establishing an IV but this was able to be established via ultrasound placement. This was placed under my order by 1 of the nursing staff members. Patient has had marked improvement of his shortness of breath although does complain of some mild ongoing shortness of breath. His rate appears to be the primary cause of shortness of breath. I do not clinically suspect an acute pulmonary embolus as this is very similar patient's prior presentation he had a negative CT at that time. He is also currently anticoagulated appropriately. Patient does note that he had a dark stool earlier today but again this would be anticipated in the setting of him having an ablation in the esophagus and one would expect a mild upper amount of GI blood loss in that setting. Will continue to monitor closely. 04/01/17 01:49 Troponin has down trended to 0.061. This supports my initial concern that his initial troponin was likely rate dependent ischemia. Patient's symptoms continue to be improved after rate control and his current rates remain in approximately 110-115. I discussed this case with Dr. Park who agrees to admit the patient at this time. - Laboratory Result Diagrams: 03/31/17 22:30 03/31/17 22:30 Laboratory results interpreted by me: 03/31/17 03/31/17 22:30 22:30 WBC 23.4 H RBC 4.07 L Hgb 12.8 L RDW 14.6 H Seg Neuts % (Manual) 88 H Lymphocytes % (Manual) 5 L Abs Neuts (Manual) 20.6 H Abs Monocytes (Manual) 1.6 H Potassium 5.8 H Carbon Dioxide 18 L BUN 77 H Creatinine 1.87 H Est GFR ( Amer) 46 L Est GFR (Non-Af Amer) 38 L Glucose 228 H Calcium 10.3 H - Diagnostic Test Radiology reviewed: Image reviewed, Reports reviewed Radiology results interpreted by me: 04/01/17 01:07 Chest x-ray: No acute infiltrate or pneumothorax - EKG Interpretation by Me Additional EKG results interpreted by me: 04/01/17 01:08 Sinus tachycardia. Rate 162. QTC prolonged at 506. Repolarization abnormality Critical Care Note - Critical Care Note Total time excluding time spent on procedures (mins): 37 Comments: Critical care time spent obtaining history from patient or surrogate, discussions with consultants, development of treatment plan with patient or surrogate, evaluation of patient's response to treatment, examination of patient , ordering and performing treatments and interventions, ordering and review of laboratory studies, re-evaluation of patient's condition, ordering and review of radiographic studies and review of old charts Discharge - Discharge Clinical Impression: Sinus tachycardia, Elevated troponin I level Chest pain Qualifiers: Chest pain type: unspecified Qualified Code(s): R07.9 - Chest pain, unspecified Condition: Fair Disposition: ADMITTED INPATIENT Admitting Provider: [facility] Admitted: [facility]
--- NOTE | 2017-03-31 22:58 | RADIOLOGY REPORT (SQ) ---
EXAM DESCRIPTION: CHEST SINGLE VIEW COMPLETED DATE/TIME: 03/31/2017 10:48 pm REASON FOR STUDY: sob COMPARISON: CTA and CR, chest, 12/27/2016. EXAM PARAMETERS: NUMBER OF VIEWS: One view. TECHNIQUE: Single frontal radiographic view of the chest acquired. RADIATION DOSE: NA LIMITATIONS: None. FINDINGS: LUNGS AND PLEURA: No opacities, masses or pneumothorax. No pleural effusion. Moderate rig ht lung volume, stable. MEDIASTINUM AND HILAR STRUCTURES: No masses. Contour normal. HEART AND VASCULAR STRUCTURES: Heart normal in size. Normal vasculature. BONES: No acute findings. HARDWARE: None in the chest. OTHER: No other significant finding. IMPRESSION: NO ACUTE RADIOGRAPHIC FINDING IN THE CHEST. TECHNICAL DOCUMENTATION: JOB ID: [id number] [employer]- All Rights Reserved
[2017-03-31 23:03] LABS: VENOUS BLOOD BASE EXCESS -5.1 mmol/L; VENOUS BLOOD HCO3 20.2 mmol/L (20-32); VENOUS BLOOD PCO2 38.3 mmHg (35-63); VENOUS BLOOD PH 7.34 (7.30-7.42)
[2017-03-31 23:09] LABS: HEMATOCRIT 38.2 % (37.9-51.0); HEMOGLOBIN 12.8 g/dL (13.5-17.0); HGB HCT DIFFERENCE 0.2; MEAN CORPUSCULAR HEMOGLOBIN 31.6 pg (27.0-33.4); MEAN CORPUSCULAR HGB CONC 33.6 g/dL (32.0-36.0); MEAN CORPUSCULAR VOLUME 94 fl (80-97); RED BLOOD COUNT 4.07 10^6/uL (4.35-5.55); RED CELL DISTRIBUTION WIDTH 14.6 % (11.5-14.0); WHITE BLOOD COUNT 23.4 10^3/uL (4.0-10.5)
[2017-03-31 23:18] LABS: BLOOD UREA NITROGEN 77 mg/dL (7-20); CALCIUM 10.3 mg/dL (8.4-10.2); CHLORIDE 104 mmol/L (98-107); CREATININE RESULT 1.87 mg/dL (0.52-1.25); GLUCOSE 228 mg/dL (75-110); POTASSIUM 5.8 mmol/L (3.6-5.0)
[2017-03-31 23:28] LABS: BASOPHILS % (MANUAL) 0 % (0-2); EOSINOPHILS % (MANUAL) 0 % (0-6); LYMPHOCYTES % (MANUAL) 5 % (13-45); TOTAL CELLS COUNTED 100
[2017-03-31 23:29] LABS: ANION GAP 19 (5-19); ANISOCYTOSIS SLIGHT; CARBON DIOXIDE 18 mmol/L (22-30); SODIUM 140.5 mmol/L (137-145); TOXIC VACUOLATION PRESENT
[2017-04-01] MEDS ORDERED: DILTIAZEM HCL 60 MG TABLET PO ONE ×2 (01:50→04:45)
[2017-04-01] MEDS ORDERED: NA PHOS,M-B/NA PHOS,DI-BA (ADULT) 133 ML ENEMA PR PRN (01:51)
[2017-04-01] MEDS ORDERED: LACTULOSE SYRUP 20 GM/30 ML UDCUP PO ONE (01:51)
[2017-04-01] MEDS ORDERED: CYCLOSPORINE 0.05% OPH EMULSIO 0.4 ML DROPERETTE OP PRN (01:51)
[2017-04-01] MEDS ORDERED: HYDROMORPHONE HCL 4 MG PO PRN (01:51)
[2017-04-01] MEDS ORDERED: (PENDING PHARMACY ID) (Difluprednate [Durezol] 1 DROP) OP SCH (02:00)
[2017-04-01] MEDS ORDERED: METOPROLOL TARTRATE 50 MG TABLET PO ONE (02:30)
[2017-04-01] MEDS ORDERED: DILTIAZEM HCL 60 MG TABLET ONE (04:23)
[2017-04-01] MEDS ORDERED: NORMAL SALINE 1000 ML 1,000 ML IV SCH (04:30)
--- NOTE | 2017-04-01 04:36 | PDOC H&P ---
History of Present Illness Admission Date/PCP: 04/01/17 01:57 Patient complains of: Shortness of breath and tachycardia History of Present Illness: CARMEN RAZO SR is a 56 year old male with an extensive past medical history of paroxysmal atrial fibrillation, pulmonary embolism on Eliquis, diabetes, hypertension, Dilaudid dependent chronic pain and morbid obesity. Who presents after 12 hours of shortness of breath, tachycardia in the 150s and chest tightness prompting evaluation emergency room. He is found to have sinus tachycardia in the 150s he receives 15 mg of Lopressor IV resulting in heart rate of 115. He is also found to have hypotension systolic in the 90s, prerenal azotemia, acute renal failure and hyperkalemia. He is referred to the hospitalist for admission. Patient had recently undergone EGD for Kidd's esophagus with biopsy and had missed at least one missed dose of scheduled medications including Lopressor. He currently denies chest pain or shortness of breath and is lying flat without supplemental oxygen. Past Medical History Cardiac Medical History: Reports: DVT, Hyperlipidema, Hypertension, Pulmonary Embolism Denies: Myocardial Infarction Pulmonary Medical History: Reports: Chronic Obstructive Pulmonary Disease (COPD) Denies: Asthma, Tuberculosis Neurological Medical History: Denies: Seizures Endocrine Medical History: Reports: Diabetes Mellitus Type 2 GI Medical History: Reports: Gastroesophageal Reflux Disease Denies: Hepatitis, Hiatal Hernia Musculoskeltal Medical History: Reports: Other - Chronic pain Psychiatric Medical History: Reports: Depression Hematology: Denies: Anemia, Sickle Cell Disease Past Surgical History Past Surgical History: Reports: Cholecystectomy, Orthopedic Surgery - Right femur, right knee Denies: Pacemaker Social History Information Source: Patient Lives with: Spouse/Significant other Smoking Status: Never Smoker Frequency of Alcohol Use: None Hx Recreational Drug Use: No Hx Prescription Drug Abuse: No - Advance Directive Resuscitation Status: Full Code Family History Family History: CAD Parental Family History Reviewed: Yes Children Family History Reviewed: Yes Sibling(s) Family History Reviewed.: Yes Medication/Allergy Home Medications: Hydromorphone HCl 8 mg PO Q6HP PRN 08/28/12 Amlodipine Besylate [Norvasc 5 mg Tablet] 2.5 mg PO DAILY 08/27/16 Apixaban [Eliquis 5 mg Tablet] 5 mg PO BID 08/27/16 Cyclosporine 0.05% Oph Emulsio [Restasis 0.05% Oph Emulsion Pf 0.4 ml] 1 drop OP ASDIR PRN 08/27/16 Difluprednate [Durezol] 1 drop OP . 3 & 8 PM TODAY 08/27/16 Digoxin [Lanoxin 0.25 mg Tablet] 0.25 mg PO DAILY 08/27/16 Duloxetine HCl [Cymbalta] 60 mg PO BID 08/27/16 Esomeprazole Magnesium [Nexium] 40 mg PO DAILY 08/27/16 Gabapentin 1,200 mg PO BID 08/27/16 Metformin HCl 500 mg PO BID 08/27/16 Ranolazine [Ranexa 500 mg Tab.sr] 500 mg PO Q12 08/27/16 Cyanocobalamin (Vitamin B-12) [Vitamin B-12] 1,000 mcg SL DAILY 12/27/16 Fluticasone Propionate [Flonase Nasal Erie 50 Mcg/Erie 16 gm] 2 puff IH DAILY 12/27/16 Metoprolol Tartrate [Lopressor] 25 mg PO BID 12/27/16 Red Yeast Rice 1,200 mg PO BID 12/27/16 Valacyclovir HCl [Valacyclovir] 500 mg PO DAILY 12/27/16 Allergies/Adverse Reactions: ketorolac tromethamine [From Toradol] Allergy (Unknown, Verified 12/27/16 22:34) promethazine HCl [From Phenergan] Allergy (Unknown, Verified 12/27/16 22:34) aspirin [Aspirin] Allergy (Verified 12/27/16 22:34) Hives Review of Systems Constitutional: ABSENT: chills, fever(s), headache(s), weight gain, weight loss Eyes: ABSENT: visual disturbances Ears: ABSENT: hearing changes Cardiovascular: ABSENT: chest pain, dyspnea on exertion, edema, orthropnea, palpitations Respiratory: ABSENT: cough, hemoptysis Gastrointestinal: ABSENT: abdominal pain, constipation, diarrhea, hematemesis, hematochezia, nausea, vomiting Genitourinary: ABSENT: dysuria, hematuria Musculoskeletal: ABSENT: joint swelling Integumentary: ABSENT: rash, wounds Neurological: ABSENT: abnormal gait, abnormal speech, confusion, dizziness, focal weakness, syncope Psychiatric: ABSENT: anxiety, depression, homidical ideation, suicidal ideation Endocrine: ABSENT: cold intolerance, heat intolerance, polydipsia, polyuria Hematologic/Lymphatic: ABSENT: easy bleeding, easy bruising Physical Exam Vital Signs: Temp Pulse Resp BP Pulse Ox 98.3 F 115 H 13 101/77 96 03/31/17 21:30 04/01/17 03:48 04/01/17 03:01 04/01/17 03:01 04/01/17 03:01 General appearance: PRESENT: mild distress, well-developed, well-nourished Head exam: PRESENT: atraumatic, normocephalic Eye exam: PRESENT: conjunctiva pink, EOMI, PERRLA. ABSENT: scleral icterus Ear exam: PRESENT: normal external ear exam Mouth exam: PRESENT: moist, tongue midline Neck exam: ABSENT: carotid bruit, JVD, lymphadenopathy, thyromegaly Respiratory exam: PRESENT: accessory muscle use, clear to auscultation neo, symmetrical, tachypnea. ABSENT: rales, rhonchi, wheezes Cardiovascular exam: PRESENT: RRR, tachycardia. ABSENT: diastolic murmur, rubs , systolic murmur Pulses: PRESENT: normal dorsalis pedis pul Vascular exam: PRESENT: normal capillary refill GI/Abdominal exam: PRESENT: normal bowel sounds, soft. ABSENT: distended, guarding, mass, organolmegaly, rebound, tenderness Rectal exam: PRESENT: deferred Extremities exam: PRESENT: full ROM. ABSENT: calf tenderness, clubbing, pedal edema Neurological exam: PRESENT: alert, awake, oriented to person, oriented to place , oriented to time, oriented to situation, CN II-XII grossly intact. ABSENT: motor sensory deficit Psychiatric exam: PRESENT: appropriate affect, normal mood. ABSENT: homicidal ideation, suicidal ideation Skin exam: PRESENT: dry, intact, warm. ABSENT: cyanosis, rash Results Impressions: Chest X-Ray 03/31/17 21:30 IMPRESSION: NO ACUTE RADIOGRAPHIC FINDING IN THE CHEST. Assessment & Plan - Diagnosis (1) Sinus tachycardia Is this a current diagnosis for this admission?: Yes Plan: Most likely secondary to missed Lopressor, resume home regiment in addition to an IV fluid challenge as he is dehydrated and prerenal. As needed Cardizem (2) Hyperkalemia Is this a current diagnosis for this admission?: Yes Plan: Complicated by chronic pain and opiate dependence, lactulose scheduled and Kayexalate as needed follow-up chemistry (3) Chest pain Qualifiers: Chest pain type: unspecified Qualified Code(s): R07.9 - Chest pain, unspecified Is this a current diagnosis for this admission?: Yes Plan: Negative cardiac catheterization 4 months ago, likely rate related obtain serial cardiac enzymes and symptomatic management. Possibly related to pulmonary emboli consider CT angiogram of the chest after hydration and if no improvement with empiric management (4) Diabetes Is this a current diagnosis for this admission?: Yes Plan: Home regiment with sliding scale (5) Chronic pain following surgery or procedure Is this a current diagnosis for this admission?: Yes Plan: Home regiment with holding parameters for oversedation. - Time Time Spent: 50 to 70 Minutes - Inpatient Certification Medical Necessity: Need Close Monitoring Due to Risk of Patient Decompensation
[2017-04-01] MEDS ORDERED: HYDROMORPHONE HCL 2 MG TABLET PO PRN (04:50)
[2017-04-01] MEDS ORDERED: DEXTROSE 40% GEL 15 GM TUBE PO PRN (06:16)
[2017-04-01] MEDS ORDERED: DEXTROSE 50%-WATER SYRINGE 25 GM/50 ML DOSE IV PRN (06:16)
[2017-04-01] MEDS ORDERED: DEXTROSE 40% GEL 15 GM TUBE X 2 PO PRN (06:16)
[2017-04-01] MEDS ORDERED: GLUCAGON,HUMAN RECOMB 1 MG INJ IM PRN (06:16)
[2017-04-01] MEDS ORDERED: DEXTROSE 50%-WATER SYRINGE 12.5 GM/25 ML DOSE IV PRN (06:16)
[2017-04-01] MEDS: GABAPENTIN 400 MG CAPSULE PO SCH ×2 (06:19→18:08)
[2017-04-01] MEDS: LANSOPRAZOLE 30 MG TAB.RAP.DR PO SCH (06:20)
[2017-04-01] MEDS: HYDROMORPHONE HCL INJ/PF 2 MG/ML AMPULE IV PRN ×3 (08:37→20:35)
[2017-04-01] MEDS ORDERED: (PENDING PHARMACY ID) (Gabapentin [Gabapentin] 1,200 MG) PO SCH (10:00)
[2017-04-01] MEDS: CYANOCOBALAMIN (VITAMIN B-12) 1,000 MCG TABLET PO SCH (10:39)
[2017-04-01] MEDS: DULOXETINE HCL 30 MG CAPSULE.DR PO SCH ×2 (10:39→17:56)
[2017-04-01] MEDS: METOPROLOL TARTRATE 50 MG TABLET PO SCH ×2 (10:40→17:57)
[2017-04-01] MEDS: DIGOXIN 0.25 MG TABLET PO SCH (10:42)
[2017-04-01] MEDS: APIXABAN 5 MG TABLET PO SCH ×2 (10:44→17:54)
[2017-04-01] MEDS: FLUTICASONE NASAL SPRAY 50 MCG/SPRY 120 SPRAY/16 GM NAREB SCH (10:53)
[2017-04-01] MEDS ORDERED: ONDANSETRON HCL INJ/PF 4 MG/2 ML SDV IV PRN (11:05)
[2017-04-01] MEDS ORDERED: DILTIAZEM HCL 30 MG TABLET PO SCH ×2 (12:00)
[2017-04-01] MEDS ORDERED: ALBUTEROL SULFATE 0.083% NEB 2.5 MG/3 ML AMPUL NEB PRN (12:11)
--- NOTE | 2017-04-01 12:44 | PDOC PROGRESS REPORT ---
Subjective Progress Note for:: 04/01/17 Subjective:: Patient complains of palpitations. Physical Exam Vital Signs: Temp Pulse Resp BP Pulse Ox 98.7 F 100 16 104/64 96 04/01/17 07:42 04/01/17 07:42 04/01/17 07:42 04/01/17 07:42 04/01/17 07:42 Intake & Output 03/31/17 04/01/17 04/02/17 06:59 06:59 06:59 Intake Total 300 Balance 300 Weight 147.2 kg 147.2 kg General appearance: PRESENT: no acute distress Eye exam: PRESENT: conjunctiva pink. ABSENT: scleral icterus Mouth exam: PRESENT: moist, tongue midline Neck exam: ABSENT: JVD Respiratory exam: PRESENT: clear to auscultation neo. ABSENT: rales, rhonchi, wheezes Cardiovascular exam: PRESENT: irregular rhythm, tachycardia. ABSENT: diastolic murmur, rubs, systolic murmur GI/Abdominal exam: PRESENT: normal bowel sounds, soft. ABSENT: distended, guarding, mass, organolmegaly, rebound, tenderness Extremities exam: ABSENT: calf tenderness, clubbing, pedal edema Neurological exam: PRESENT: alert, awake, oriented to person, oriented to place , oriented to time, oriented to situation, CN II-XII grossly intact. ABSENT: motor sensory deficit Psychiatric exam: PRESENT: appropriate affect Skin exam: PRESENT: dry, intact, warm. ABSENT: cyanosis, rash Results Impressions: Chest X-Ray 03/31/17 21:30 IMPRESSION: NO ACUTE RADIOGRAPHIC FINDING IN THE CHEST. Assessment & Plan - Diagnosis (1) Chest pain Qualifiers: Chest pain type: unspecified Qualified Code(s): R07.9 - Chest pain, unspecified Is this a current diagnosis for this admission?: Yes Plan: The patient's chest pain most likely is related to the tachycardia. We will continue to check serial cardiac enzymes. First set was slightly elevated. (2) Sinus tachycardia Is this a current diagnosis for this admission?: Yes Plan: Patient has a history of tachycardia. He has been on metoprolol and diltiazem has been added. We will increase the diltiazem until his heart rate under control. (3) Elevated troponin I level Is this a current diagnosis for this admission?: Yes Plan: This most likely his heart rate related. Will follow serial cardiac enzymes. (4) Diabetes Is this a current diagnosis for this admission?: Yes Plan: Continue with sliding scale insulin. (5) Hyperkalemia Is this a current diagnosis for this admission?: Yes Plan: We will monitor overnight. (6) Chronic pain following surgery or procedure Is this a current diagnosis for this admission?: Yes Plan: Continue with his outpatient Dilaudid dose. - Time Time Spent with patient: 25-34 minutes - Inpatient Certification Medical Necessity: Need Close Monitoring Due to Risk of Patient Decompensation
[2017-04-01] MEDS: DILTIAZEM HCL 60 MG TABLET PO SCH ×3 (15:41→23:34)
[2017-04-01] MEDS: INSULIN LISPRO 100 UNIT/ML 3 ML VIAL SUBCUT PRN (18:06)
--- NOTE | 2017-04-01 19:42 | EKG REPORT ---
SEVERITY:- ABNORMAL ECG - SINUS TACHYCARDIA CONSIDER RIGHT VENTRICULAR HYPERTROPHY REPOLARIZATION ABNORMALITY, PROB RATE RELATED PROLONGED QT INTERVAL : Confirmed by: Rowena Sigala MD 01-Apr-2017 19:41:40
[2017-04-01 20:40] LABS: ANION GAP 11 (5-19); BLOOD UREA NITROGEN 64 mg/dL (7-20); CARBON DIOXIDE 24 mmol/L (22-30); CHLORIDE 108 mmol/L (98-107); CREATININE RESULT 1.34 mg/dL (0.52-1.25); GLUCOSE 174 mg/dL (75-110); SODIUM 143.1 mmol/L (137-145)
[2017-04-01 20:46] LABS: POTASSIUM 4.8 mmol/L (3.6-5.0)
[2017-04-01] MEDS ORDERED: NORMAL SALINE 1000 ML 1,000 ML IV ONE (22:00)
[2017-04-01] MEDS: CYCLOSPORINE 0.05% OPH EMULSIO 0.4 ML DROPERETTE OU SCH (22:45)
[2017-04-02] MEDS: HYDROMORPHONE HCL INJ/PF 2 MG/ML AMPULE IV PRN ×4 (02:46→20:57)
[2017-04-02 05:19] LABS: ABSOLUTE EOSINOPHILS # (AUTO) 0.1 10^3/uL (0.0-0.6); ABSOLUTE LYMPHOCYTES (AUTO) 1.6 10^3/uL (0.5-4.7); ABSOLUTE MONOCYTES (AUTO) 0.8 10^3/uL (0.1-1.4); ABSOLUTE NEUT (AUTO) 8.2 10^3/uL (1.7-8.2); BASOPHILS % (AUTO) 0.4 % (0-2); EOSINOPHILS % (AUTO) 0.7 % (0-6); HEMATOCRIT 31.9 % (37.9-51.0); HEMOGLOBIN 10.8 g/dL (13.5-17.0); HGB HCT DIFFERENCE 0.5; MEAN CORPUSCULAR HEMOGLOBIN 31.7 pg (27.0-33.4); MEAN CORPUSCULAR HGB CONC 33.8 g/dL (32.0-36.0); MEAN CORPUSCULAR VOLUME 94 fl (80-97); RED CELL DISTRIBUTION WIDTH 14.3 % (11.5-14.0); SEGMENTED NEUTROPHILS % (AUTO) 76.9 % (42-78); WHITE BLOOD COUNT 10.7 10^3/uL (4.0-10.5)
[2017-04-02 05:39] LABS: ANION GAP 12 (5-19); BLOOD UREA NITROGEN 50 mg/dL (7-20); CARBON DIOXIDE 21 mmol/L (22-30); CHLORIDE 110 mmol/L (98-107); CREATININE RESULT 1.15 mg/dL (0.52-1.25); GLUCOSE 120 mg/dL (75-110); POTASSIUM 4.9 mmol/L (3.6-5.0); SODIUM 143.4 mmol/L (137-145)
[2017-04-02] MEDS: GABAPENTIN 400 MG CAPSULE PO SCH ×2 (05:49→18:28)
[2017-04-02] MEDS: DILTIAZEM HCL 60 MG TABLET PO SCH (05:49)
[2017-04-02] MEDS: LANSOPRAZOLE 30 MG TAB.RAP.DR PO SCH (05:49)
[2017-04-02] MEDS ORDERED: METOPROLOL TARTRATE 50 MG TABLET PO SCH ×2 (09:19→22:00)
[2017-04-02] MEDS ORDERED: (PENDING PHARMACY ID) (Difluprednate [Durezol] 1 DROP) OS SCH (10:00)
[2017-04-02] MEDS: CYCLOSPORINE 0.05% OPH EMULSIO 0.4 ML DROPERETTE OU SCH ×2 (11:13→21:00)
[2017-04-02] MEDS: DULOXETINE HCL 30 MG CAPSULE.DR PO SCH ×2 (11:13→18:29)
[2017-04-02] MEDS: DIGOXIN 0.25 MG TABLET PO SCH (11:13)
[2017-04-02] MEDS: CYANOCOBALAMIN (VITAMIN B-12) 1,000 MCG TABLET PO SCH (11:14)
[2017-04-02] MEDS: FLUTICASONE NASAL SPRAY 50 MCG/SPRY 120 SPRAY/16 GM NAREB SCH (11:15)
[2017-04-02] MEDS: APIXABAN 5 MG TABLET PO SCH ×2 (11:15→18:28)
[2017-04-02] MEDS: DILTIAZEM HCL 180 MG CAPSULE.CR PO SCH (11:21)
[2017-04-02] MEDS ORDERED: METOPROLOL TARTRATE 50 MG TABLET PO ONE (12:00)
[2017-04-02] MEDS ORDERED: METOPROLOL SUCCINATE 50 MG TAB.SR.24H PO ONE ×2 (13:00→14:00)
[2017-04-02] MEDS: INSULIN LISPRO 100 UNIT/ML 3 ML VIAL SUBCUT PRN ×2 (13:03→22:31)
--- NOTE | 2017-04-02 13:07 | PDOC PROGRESS REPORT ---
Subjective Progress Note for:: 04/02/17 Subjective:: Continues to complain of shortness of breath when he stands up and his heart races. Physical Exam Vital Signs: Temp Pulse Resp BP Pulse Ox 97.6 F 86 14 110/63 96 04/02/17 04:19 04/02/17 08:11 04/02/17 08:11 04/02/17 04:19 04/02/17 08:11 Intake & Output 04/01/17 04/02/17 04/03/17 06:59 06:59 06:59 Intake Total 1518 Output Total 2150 Balance -632 General appearance: PRESENT: no acute distress Eye exam: PRESENT: conjunctiva pink. ABSENT: scleral icterus Mouth exam: PRESENT: moist, tongue midline Neck exam: ABSENT: JVD Respiratory exam: PRESENT: clear to auscultation neo. ABSENT: rales, rhonchi, wheezes Cardiovascular exam: PRESENT: tachycardia. ABSENT: diastolic murmur, rubs, systolic murmur GI/Abdominal exam: PRESENT: normal bowel sounds, soft. ABSENT: distended, guarding, mass, organolmegaly, rebound, tenderness Extremities exam: ABSENT: calf tenderness, clubbing, pedal edema Neurological exam: PRESENT: alert, awake, oriented to person, oriented to place , oriented to time, oriented to situation, CN II-XII grossly intact. ABSENT: motor sensory deficit Psychiatric exam: PRESENT: appropriate affect Skin exam: PRESENT: dry, intact, warm. ABSENT: cyanosis, rash Results Laboratory Results: 04/02/17 04:31 04/02/17 04:31 04/01/17 04/02/17 04/02/17 19:26 04:31 04:31 WBC 10.7 H RBC 3.40 L Hgb 10.8 L Hct 31.9 L MCV 94 MCH 31.7 MCHC 33.8 RDW 14.3 H Plt Count 231 Seg Neutrophils % 76.9 Lymphocytes % 15.0 Monocytes % 7.0 Eosinophils % 0.7 Basophils % 0.4 Absolute Neutrophils 8.2 Absolute Lymphocytes 1.6 Absolute Monocytes 0.8 Absolute Eosinophils 0.1 Absolute Basophils 0.0 Sodium 143.1 143.4 Potassium 4.8 D 4.9 Chloride 108 H 110 H Carbon Dioxide 24 21 L Anion Gap 11 12 BUN 64 H 50 H Creatinine 1.34 H 1.15 Est GFR ( Amer) > 60 > 60 Est GFR (Non-Af Amer) 56 L > 60 Glucose 174 H 120 H Calcium 9.0 9.0 04/01/17 04/01/17 13:28 19:26 Troponin I 0.028 0.018 Impressions: Chest X-Ray 03/31/17 21:30 IMPRESSION: NO ACUTE RADIOGRAPHIC FINDING IN THE CHEST. Assessment & Plan - Diagnosis (1) Chest pain Qualifiers: Chest pain type: unspecified Qualified Code(s): R07.9 - Chest pain, unspecified Is this a current diagnosis for this admission?: Yes Plan: The patient's chest pain most likely is related to the tachycardia. There was no increase in the troponins. (2) Sinus tachycardia Is this a current diagnosis for this admission?: Yes Plan: Patient has a history of tachycardia. He has been on metoprolol and diltiazem has been added. We will increase the metoprolol and diltiazem. (3) Elevated troponin I level Is this a current diagnosis for this admission?: Yes Plan: This most likely his heart rate related. (4) Diabetes Is this a current diagnosis for this admission?: Yes Plan: Continue with sliding scale insulin. (5) Hyperkalemia Is this a current diagnosis for this admission?: Yes Plan: Continues to be slightly elevated. (6) Chronic pain following surgery or procedure Is this a current diagnosis for this admission?: Yes Plan: Continue with his outpatient Dilaudid dose. - Time Time Spent with patient: 25-34 minutes - Inpatient Certification Medical Necessity: Need Close Monitoring Due to Risk of Patient Decompensation
[2017-04-02] MEDS ORDERED: RANOLAZINE 500 MG TAB.SR.12H PO ONE (14:00)
[2017-04-02] MEDS ORDERED: VALACYCLOVIR HCL 500 MG TABLET PO ONE (14:00)
[2017-04-02] MEDS: RANOLAZINE 500 MG TAB.SR.12H PO SCH (21:00)
[2017-04-02] MEDS ORDERED: (PENDING PHARMACY ID) (Ranolazine [Ranexa] 1,000 MG) PO SCH (22:00)
[2017-04-03] MEDS: HYDROMORPHONE HCL INJ/PF 2 MG/ML AMPULE IV PRN ×4 (02:56→23:27)
[2017-04-03 05:08] LABS: ABSOLUTE EOSINOPHILS # (AUTO) 0.1 10^3/uL (0.0-0.6); ABSOLUTE LYMPHOCYTES (AUTO) 1.6 10^3/uL (0.5-4.7); ABSOLUTE MONOCYTES (AUTO) 0.7 10^3/uL (0.1-1.4); ABSOLUTE NEUT (AUTO) 6.8 10^3/uL (1.7-8.2); BASOPHILS % (AUTO) 0.4 % (0-2); EOSINOPHILS % (AUTO) 1.3 % (0-6); HEMATOCRIT 30.2 % (37.9-51.0); HEMOGLOBIN 10.3 g/dL (13.5-17.0); HGB HCT DIFFERENCE 0.7; LYMPHOCYTES % (AUTO) 16.8 % (13-45); MEAN CORPUSCULAR HGB CONC 33.9 g/dL (32.0-36.0); MEAN CORPUSCULAR VOLUME 94 fl (80-97); RED BLOOD COUNT 3.21 10^6/uL (4.35-5.55); RED CELL DISTRIBUTION WIDTH 14.4 % (11.5-14.0); SEGMENTED NEUTROPHILS % (AUTO) 73.5 % (42-78); WHITE BLOOD COUNT 9.3 10^3/uL (4.0-10.5)
[2017-04-03 05:33] LABS: ANION GAP 10 (5-19); BLOOD UREA NITROGEN 35 mg/dL (7-20); CALCIUM 9.1 mg/dL (8.4-10.2); CARBON DIOXIDE 29 mmol/L (22-30); CHLORIDE 102 mmol/L (98-107); CREATININE RESULT 1.16 mg/dL (0.52-1.25); GLUCOSE 128 mg/dL (75-110); POTASSIUM 4.5 mmol/L (3.6-5.0); SODIUM 141.4 mmol/L (137-145)
[2017-04-03] MEDS: GABAPENTIN 400 MG CAPSULE PO SCH ×2 (05:43→17:25)
[2017-04-03] MEDS: LANSOPRAZOLE 30 MG TAB.RAP.DR PO SCH (05:43)
[2017-04-03] MEDS: DIGOXIN 0.25 MG TABLET PO SCH (09:19)
[2017-04-03] MEDS: CYANOCOBALAMIN (VITAMIN B-12) 1,000 MCG TABLET PO SCH (09:19)
[2017-04-03] MEDS: METOPROLOL SUCCINATE 50 MG TAB.SR.24H PO SCH (09:20)
[2017-04-03] MEDS: DULOXETINE HCL 30 MG CAPSULE.DR PO SCH ×2 (09:21→17:25)
[2017-04-03] MEDS: VALACYCLOVIR HCL 500 MG TABLET PO SCH (09:22)
[2017-04-03] MEDS: RANOLAZINE 500 MG TAB.SR.12H PO SCH ×2 (09:22→23:02)
[2017-04-03] MEDS: CYCLOSPORINE 0.05% OPH EMULSIO 0.4 ML DROPERETTE OU SCH ×2 (09:23→23:01)
[2017-04-03] MEDS: FLUTICASONE NASAL SPRAY 50 MCG/SPRY 120 SPRAY/16 GM NAREB SCH (09:23)
[2017-04-03] MEDS: APIXABAN 5 MG TABLET PO SCH ×2 (09:24→17:25)
[2017-04-03] MEDS ORDERED: (PENDING PHARMACY ID) (Metoprolol Succinate [Toprol Xl 200 Mg Tablet] 200 MG) PO SCH (10:00)
[2017-04-03] MEDS ORDERED: METOPROLOL SUCCINATE 50 MG TAB.SR.24H PO SCH (10:00)
--- NOTE | 2017-04-03 10:16 | PDOC PROGRESS REPORT ---
Subjective Progress Note for:: 04/03/17 Subjective:: Continues to complain of shortness of breath when he stands up and his heart races. Physical Exam Vital Signs: Temp Pulse Resp BP Pulse Ox 97.7 F 59 L 20 109/62 97 04/03/17 07:39 04/03/17 07:39 04/03/17 07:39 04/03/17 07:39 04/03/17 07:39 Intake & Output 04/02/17 04/03/17 04/04/17 06:59 06:59 06:59 Intake Total 1518 2382 Output Total 2150 2950 Balance -632 -568 Weight 147 kg General appearance: PRESENT: no acute distress Eye exam: PRESENT: conjunctiva pink. ABSENT: scleral icterus Mouth exam: PRESENT: moist, tongue midline Neck exam: ABSENT: JVD Respiratory exam: PRESENT: clear to auscultation neo. ABSENT: rales, rhonchi, wheezes Cardiovascular exam: PRESENT: RRR. ABSENT: diastolic murmur, rubs, systolic murmur GI/Abdominal exam: PRESENT: normal bowel sounds, soft. ABSENT: distended, guarding, mass, organolmegaly, rebound, tenderness Extremities exam: ABSENT: calf tenderness, clubbing, pedal edema Neurological exam: PRESENT: alert, awake, oriented to person, oriented to place , oriented to time, oriented to situation, CN II-XII grossly intact. ABSENT: motor sensory deficit Psychiatric exam: PRESENT: appropriate affect Skin exam: PRESENT: dry, intact, warm. ABSENT: cyanosis, rash Results Laboratory Results: 04/03/17 04:31 04/03/17 04:31 04/03/17 04/03/17 04:31 04:31 WBC 9.3 RBC 3.21 L Hgb 10.3 L Hct 30.2 L MCV 94 MCH 32.0 MCHC 33.9 RDW 14.4 H Plt Count 225 Seg Neutrophils % 73.5 Lymphocytes % 16.8 Monocytes % 8.0 Eosinophils % 1.3 Basophils % 0.4 Absolute Neutrophils 6.8 Absolute Lymphocytes 1.6 Absolute Monocytes 0.7 Absolute Eosinophils 0.1 Absolute Basophils 0.0 Sodium 141.4 Potassium 4.5 Chloride 102 Carbon Dioxide 29 Anion Gap 10 BUN 35 H Creatinine 1.16 Est GFR ( Amer) > 60 Est GFR (Non-Af Amer) > 60 Glucose 128 H Calcium 9.1 04/01/17 04/01/17 13:28 19:26 Troponin I 0.028 0.018 Impressions: Chest X-Ray 03/31/17 21:30 IMPRESSION: NO ACUTE RADIOGRAPHIC FINDING IN THE CHEST. Assessment & Plan - Diagnosis (1) Chest pain Qualifiers: Chest pain type: unspecified Qualified Code(s): R07.9 - Chest pain, unspecified Is this a current diagnosis for this admission?: Yes Plan: The patient's chest pain most likely is related to the tachycardia. There was no increase in the troponins. (2) Sinus tachycardia Is this a current diagnosis for this admission?: Yes Plan: Patient has a history of tachycardia. He has been on metoprolol and diltiazem has been added. The patient is still symptomatic when he stands up even though his resting heart rate is low. Will consult cardiology. (3) Elevated troponin I level Is this a current diagnosis for this admission?: Yes Plan: This most likely is heart rate related. (4) Diabetes Is this a current diagnosis for this admission?: Yes Plan: Continue with sliding scale insulin. (5) Hyperkalemia Is this a current diagnosis for this admission?: Yes Plan: Resolved (6) Chronic pain following surgery or procedure Is this a current diagnosis for this admission?: Yes Plan: Continue with his outpatient Dilaudid dose. - Time Time Spent with patient: 25-34 minutes - Inpatient Certification Medical Necessity: Need Close Monitoring Due to Risk of Patient Decompensation
[2017-04-03] MEDS: DILTIAZEM HCL 180 MG CAPSULE.CR PO SCH (13:14)
[2017-04-03] MEDS: INSULIN LISPRO 100 UNIT/ML 3 ML VIAL SUBCUT PRN ×2 (13:15→23:00)
--- NOTE | 2017-04-03 14:33 | PDOC CONSULTATION ---
Consultation Consult Date: 04/03/17 Attending physician:: JESSICA KNOWLES Consult reason:: Shortness of breath and near syncope History of Present Illness Admission Date/PCP: 04/01/17 12:12 Patient complains of: Shortness of breath and near syncope History of Present Illness: CARMEN RAZO SR is a 56 year old male with an extensive past medical history of paroxysmal atrial fibrillation, pulmonary embolism on Eliquis, diabetes, hypertension, Dilaudid dependent chronic pain and morbid obesity. Who presents after 12 hours of shortness of breath, tachycardia in the 150s and chest tightness prompting evaluation emergency room. He is found to have sinus tachycardia in the 150s he receives 15 mg of Lopressor IV resulting in heart rate of 115. He is also found to have hypotension systolic in the 90s, prerenal azotemia, acute renal failure and hyperkalemia. He is referred to the hospitalist for admission. Patient had recently undergone EGD for Kidd's esophagus with biopsy and had missed at least one missed dose of scheduled medications including Lopressor. He currently denies chest pain or shortness of breath and is lying flat without supplemental oxygen. This history was reviewed and confirmed. Patient describes history of cardioversion last year. He also describes having had a heart catheterization last March which he told me was negative for any blockages. Patient has history of paroxysmal atrial fibrillation. He also has history of sleep apnea syndrome but cannot use CPAP therapy because of intolerance. Past Medical History Cardiac Medical History: Reports: DVT, Hyperlipidema, Hypertension, Pulmonary Embolism Denies: Myocardial Infarction Pulmonary Medical History: Reports: Chronic Obstructive Pulmonary Disease (COPD) Denies: Asthma, Tuberculosis Neurological Medical History: Denies: Seizures Endocrine Medical History: Reports: Diabetes Mellitus Type 2 GI Medical History: Reports: Gastroesophageal Reflux Disease Denies: Hepatitis, Hiatal Hernia Musculoskeltal Medical History: Reports: Other - Chronic pain Psychiatric Medical History: Reports: Depression Hematology: Denies: Anemia, Sickle Cell Disease Past Surgical History Past Surgical History: Reports: Cholecystectomy, Orthopedic Surgery - Right femur, right knee, Other - Cardiac catheterization and cardioversion per patient. Denies: Pacemaker Social History Information Source: Patient Lives with: Spouse/Significant other Smoking Status: Never Smoker Last Time Smoked: 20 years ago Frequency of Alcohol Use: None Hx Recreational Drug Use: No Hx Prescription Drug Abuse: No - Advance Directive Resuscitation Status: Full Code Surrogate healthcare decision maker:: Patient's is the surrogate decision-maker Family History Family History: CAD Parental Family History Reviewed: Yes Children Family History Reviewed: Yes Sibling(s) Family History Reviewed.: Yes Medication/Allergy Home Medications: Apixaban [Eliquis 5 mg Tablet] 5 mg PO BID 04/01/17 Cyanocobalamin (Vitamin B-12) [Vitamin B-12 1000 Mcg Tablet] 1,000 mcg PO DAILY 04/01/17 Cyclosporine 0.05% Oph Emulsio [Restasis 0.05% Opthalmic Droperette] 1 drop BTH_ EYE Q12 04/01/17 Difluprednate [Durezol] 1 drop OS DAILY 04/01/17 Digoxin [Lanoxin] 250 mcg PO DAILY 04/01/17 Duloxetine HCl [Cymbalta] 60 mg PO Q12 04/01/17 Esomeprazole Magnesium [Nexium] 40 mg PO DAILY 04/01/17 Fluticasone Propionate [Flonase Nasal [place] 50 Mcg/[place] 16 gm] 2 sprays NAREB DAILY 04/01/17 Gabapentin [Neurontin] 1,200 mg PO Q12 04/01/17 Hydromorphone HCl [Dilaudid] 8 mg PO DAILYP PRN 04/01/17 Metformin HCl [Glucophage 500 mg Tablet] 500 mg PO BIDACBS 04/01/17 Metoprolol Succinate [Toprol XL 200 mg Tablet] 200 mg PO DAILY 04/01/17 Ranolazine [Ranexa] 1,000 mg PO Q12 04/01/17 Valacyclovir HCl [Valtrex 500 Mg Tablet] 1,000 mg PO DAILY 04/01/17 Allergies/Adverse Reactions: ketorolac tromethamine [From Toradol] Allergy (Unknown, Verified 12/27/16 22:34) promethazine HCl [From Phenergan] Allergy (Unknown, Verified 12/27/16 22:34) aspirin [Aspirin] Allergy (Verified 12/27/16 22:34) Hives Review of Systems Review of Systems: Please see history of present illness and past medical history as wall. Constitutional: No fever or chills reported. Head : No recent chronic headaches, recent head injury. Eyes: No recent eye pain, diplopia, redness, discharge, acute visual changes. Ears: No recent chronic ear pain, acute hearing loss, ear discharge. Oral cavity: No recent ulcerations, bleeding, oral cavity discomfort. Neck: No recent acute neck pain reported. Hematologic: No recent easy bruising or bleeding or hematologic malignancy reported. Lymphatic: No recent lymphatic malignancy, chronic lymphadenopathy reported yet Cardiovascular system review: See history of present illness. Respiratory system review: No recent chronic cough, hemoptysis, blood clots in the lungs reported. Mild Shortness of breath on exertion Gastrointestinal system review: Negative for any recent acute or chronic abdominal pain, hematemesis, melena, recent change in bowel habits. History of reflux and Kidd's esophagus. Genitourinary system review: No recent acute or chronic hematuria, flank pain, UTI etc. reported. Skin system review: Negative for any recent abnormal bruising, no rash, no pruritus reported. Neurologic: No prior history of strokes, mini strokes, seizure disorder. History of near syncope. Psychologic: No history of major psychosis or major depression reported. Musculoskeletal: Minor aches and pains reported. No acute joint swelling reported. Endocrine: No recent polyuria, polydipsia, recent heat or cold intolerance. Physical Exam Vital Signs: Temp Pulse Resp BP Pulse Ox 97.6 F 94 20 79/45 L 100 04/03/17 11:54 04/03/17 11:58 04/03/17 11:54 04/03/17 11:58 04/03/17 11:58 Intake & Output 04/02/17 04/03/17 04/04/17 06:59 06:59 06:59 Intake Total 1518 2382 200 Output Total 2150 2950 875 Balance -632 -568 -675 Weight 147 kg Exam: GENERAL: well-nourished and in no acute distress. Alert and oriented x3 HEAD: Atraumatic, normocephalic. EYES: Pupils equal round and reactive to light, extraocular movements intact, sclera anicteric, conjunctiva are normal. ENT: TMs normal, nares patent, oropharynx clear without exudates. Moist mucous membranes. No oral ulcerations or bleeding gums noted NECK: supple without lymphadenopathy. Trachea is central. No cervical or axillary lymphadenopathy noted. Carotids are 2+, JVD WNL LUNGS: Respiration seems nonlabored, no significant accessory muscle action noted. Breath sounds clear to auscultation bilaterally and equal noted. No wheezes rales or rhonchi noted. No significant dullness noted on percussion. CHEST: Palpation of the chest wall shows no significant chest wall tenderness. No other significant abnormalities noted. 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 ABDOMEN: Soft, no significant tenderness appreciated, normoactive bowel sounds. No guarding, no rebound. No rigidity noted . No masses appreciated. EXTREMITIES: Pedal pulses are 1-2+, no calf tenderness noted. No clubbing or cyanosis.trace to 1+ pedal edema noted NEUROLOGICAL: Focused neurological exam showed no significant neurologic deficit. Normal speech, no focal weakness appreciated. PSYCH: Normal mood, normal affect. Judgment and insight within normal limits. SKIN: No significant ecchymosis, rash, ulcerations or signs of pruritus noted. MUSCULOSKELETAL EXAM: No significant joint swelling noted. Results Laboratory Results: 04/03/17 04:31 04/03/17 04:31 04/03/17 04/03/17 04:31 04:31 WBC 9.3 RBC 3.21 L Hgb 10.3 L Hct 30.2 L MCV 94 MCH 32.0 MCHC 33.9 RDW 14.4 H Plt Count 225 Seg Neutrophils % 73.5 Lymphocytes % 16.8 Monocytes % 8.0 Eosinophils % 1.3 Basophils % 0.4 Absolute Neutrophils 6.8 Absolute Lymphocytes 1.6 Absolute Monocytes 0.7 Absolute Eosinophils 0.1 Absolute Basophils 0.0 Sodium 141.4 Potassium 4.5 Chloride 102 Carbon Dioxide 29 Anion Gap 10 BUN 35 H Creatinine 1.16 Est GFR ( Amer) > 60 Est GFR (Non-Af Amer) > 60 Glucose 128 H Calcium 9.1 04/01/17 04/01/17 13:28 19:26 Troponin I 0.028 0.018 EKG Comments: Admission EKG shows atrial fibrillation/paroxysmal atrial tachycardia with rapid ventricular response. ST segment depression noted most likely related to ischemia but could well be LVH and rate related. Impressions: Chest X-Ray 03/31/17 21:30 IMPRESSION: NO ACUTE RADIOGRAPHIC FINDING IN THE CHEST. Assessment & Plan - Diagnosis (1) Paroxysmal atrial fibrillation Is this a current diagnosis for this admission?: Yes (2) Obesity Qualifiers: Obesity type: unspecified obesity type Is this a current diagnosis for this admission?: Yes (3) Sleep apnea syndrome Qualifiers: Sleep apnea type: unspecified type Qualified Code(s): G47.30 - Sleep apnea , unspecified Is this a current diagnosis for this admission?: Yes (4) Elevated troponin I level Is this a current diagnosis for this admission?: Yes (5) Diabetes Qualifiers: Diabetes mellitus type: type 2 Diabetes mellitus complication status: with unspecified complications Diabetes mellitus prison insulin use: unspecified prison insulin use status Qualified Code(s): E11.8 - Type 2 diabetes mellitus with unspecified complications Is this a current diagnosis for this admission?: Yes - Notes Notes: Paroxysmal atrial flutter fibrillation: This was noted on presentation and most likely the cause of patient's dyspnea. Have placed patient on Multaq 400 mg p.o. twice daily. Recommend stopping Ranexa on discharge. Continue with current dose of beta-chanelle and Cardizem. May back off on Cardizem if there is problems with blood pressure or bradycardia. May also back off digoxin. A 2D echo was ordered. Sleep apnea syndrome: Patient most likely has underlying severe obstructive sleep apnea but currently not on therapy because of intolerance. Patient advised that treatment of sleep apnea may help a multitudes of his problems. Obesity: Patient is in the supine obesity class III category. Patient will benefit from aggressive weight loss and possibly should be considered for obesity surgery. Elevated troponin I: Most likely related to supply demand mismatch. Patient claims heart catheterization and stress test last year. Will try to obtain those records. Diabetes: This is being expertly managed by the hospitalist. Orthostatic hypotension: Patient was noted to have orthostatic hypotension. Recommend increasing fluid intake and possibly salt intake for the time being. May consider backing off Cardizem. A 2D echo has been ordered. - Time Time Spent: 50 to 70 Minutes - CODE STATUS was discussed, patient remains full code. Surrogate decision-maker patient's . Multiple medical problems were addressed. More than 50% of the time spent coordinating care, discussing management plans with involved caregivers. Management plans discussed with involved personnels. Medical decision making was of moderate to high complexity , patient's has multiple comorbidities. Medications reviewed and adjusted accordingly: Yes
--- NOTE | 2017-04-03 16:04 | XCELERA REPORT ---
[address] [address] Transthoracic Echocardiogram Report Name: CARMEN RAZO SR Age: 56 yrs Gender: Male : 1960 Patient Status: Inpatient Patient Location: [address] [place] [address] Study Date: 04/03/2017 02:20 PM Height: 73 in Weight: 324 lb BSA: 2.6 m2 Procedure: A complete two-dimensional transthoracic echocardiogram was performed (2D, M-mode, spectral and color flow Doppler). The study was technically difficult with many images being suboptimal in quality. Reason For Study: syncope Ordering Physician: LALI LAUGHLIN Performed By: Gisella Medeiros Interpretation Summary The study was technically difficult with many images being suboptimal in quality. The left ventricular ejection fraction is preserved. There is mild concentric left ventricular hypertrophy. The left ventricle is grossly normal size. Doppler measurements suggest pseudonormalized left ventricular relaxation, which is associated with grade II/IV or mild to moderate diastolic dysfunction Regional wall motion abnormalities cannot be excluded due to limited visualization. The right ventricle is mildly dilated. The left atrium is mildly dilated. The right atrium is mildly dilated. There is a trace amount of mitral regurgitation There is no mitral valve stenosis. There is no aortic valve stenosis No aortic regurgitation is present. There is a trace or physiologic amount of tricuspid regurgitation Tricuspid regurgitation jet envelope not well defined to measure RV systolic pressure accurately. The aortic root is not well visualized. The inferior vena cava was not well visualized There is no pericardial effusion. MMode/2D Measurements & Calculations RVDd: 3.2 cm LVIDd: 5.7 cmFS: 35.0 % Ao root diam: 4.2 cm IVSd: 1.1 cm LVIDs: 3.7 cmEDV(Teich): 159.7 ml LVPWd: 1.1 cmESV(Teich): 58.2 ml Ao root area: 13.8 cm2 EF(Teich): 63.6 % LA dimension: 4.3 cm LVOT diam: 2.7 cm LVOT area: 5.5 cm2 Doppler Measurements & Calculations MV E max mary: MV P1/2t max mary: Ao V2 max: LV V1 max P.4 cm/sec 63.8 cm/sec 147.2 cm/sec 7.2 mmHg MV A max mary: MV P1/2t: 66.4 msec Ao max PG: LV V1 max: 77.5 cm/sec MVA(P1/2t): 3.3 cm2 8.7 mmHg 133.8 cm/sec MV E/A: 0.82 MV dec slope: MISSY(V,D): 5.0 cm2 281.3 cm/sec2 PA V2 max: TR max mary: 103.2 cm/sec 230.2 cm/sec PA max PG: TR max P.2 mmHg 4.3 mmHg Left Ventricle The left ventricle is grossly normal size. There is mild concentric left ventricular hypertrophy. The left ventricular ejection fraction is preserved. Doppler measurements suggest pseudonormalized left ventricular relaxation, which is associated with grade II/IV or mild to moderate diastolic dysfunction. Regional wall motion abnormalities cannot be excluded due to limited visualization. Right Ventricle The right ventricle is mildly dilated. Right ventricular function cannot be assessed due to poor image quality. Atria The right atrium is mildly dilated. The left atrium is mildly dilated. Interarterial septum not well visualized and not well dopplered. Cannot comment on ASD/PFO presence. Mitral Valve The mitral valve is not well visualized. There is no mitral valve stenosis. There is a trace amount of mitral regurgitation. Aortic Valve The aortic valve is not well visualized secondary to technical limitations. There is no aortic valve stenosis. No aortic regurgitation is present. Tricuspid Valve The tricuspid valve is not well visualized secondary to technical limitations. There is no tricuspid stenosis. There is a trace or physiologic amount of tricuspid regurgitation. Tricuspid regurgitation jet envelope not well defined to measure RV systolic pressure accurately. Pulmonic Valve The pulmonic valve is not well visualized. Great Vessels The aortic root is not well visualized. The inferior vena cava was not well visualized. Effusions There is no pericardial effusion. : LALI LAUGHLIN > Lali Laughlin
[2017-04-03] MEDS ORDERED: NALOXONE HCL INJ/PF 0.4 MG/1 ML SDV IV ONE (22:45)
[2017-04-04] MEDS: GABAPENTIN 400 MG CAPSULE PO SCH ×2 (05:44→17:03)
[2017-04-04] MEDS: LANSOPRAZOLE 30 MG TAB.RAP.DR PO SCH (05:44)
[2017-04-04] MEDS: HYDROMORPHONE HCL INJ/PF 2 MG/ML AMPULE IV PRN ×2 (05:44→11:44)
[2017-04-04] MEDS: DULOXETINE HCL 30 MG CAPSULE.DR PO SCH ×2 (10:01→17:03)
[2017-04-04] MEDS: DIGOXIN 0.25 MG TABLET PO SCH (10:01)
[2017-04-04] MEDS: CYANOCOBALAMIN (VITAMIN B-12) 1,000 MCG TABLET PO SCH (10:02)
[2017-04-04] MEDS: CYCLOSPORINE 0.05% OPH EMULSIO 0.4 ML DROPERETTE OU SCH ×2 (10:02→22:34)
[2017-04-04] MEDS: FLUTICASONE NASAL SPRAY 50 MCG/SPRY 120 SPRAY/16 GM NAREB SCH (10:02)
[2017-04-04] MEDS: VALACYCLOVIR HCL 500 MG TABLET PO SCH (10:03)
[2017-04-04] MEDS: APIXABAN 5 MG TABLET PO SCH ×2 (10:03→17:04)
[2017-04-04] MEDS: RANOLAZINE 500 MG TAB.SR.12H PO SCH ×2 (10:03→22:34)
[2017-04-04] MEDS: METOPROLOL SUCCINATE 50 MG TAB.SR.24H PO SCH (10:09)
--- NOTE | 2017-04-04 10:15 | PDOC PROGRESS REPORT ---
Subjective Progress Note for:: 04/04/17 Subjective:: Patient became hypotensive yesterday evening. Physical Exam Vital Signs: Temp Pulse Resp BP Pulse Ox 97.5 F 61 16 123/60 89 L 04/04/17 07:39 04/04/17 07:39 04/04/17 07:39 04/04/17 07:39 04/04/17 07:39 Intake & Output 04/03/17 04/04/17 04/05/17 06:59 06:59 06:59 Intake Total 2382 1151 Output Total 2950 2250 Balance -568 -1099 Weight 147 kg 148 kg General appearance: PRESENT: no acute distress Eye exam: PRESENT: conjunctiva pink. ABSENT: scleral icterus Mouth exam: PRESENT: moist, tongue midline Neck exam: ABSENT: carotid bruit, JVD, lymphadenopathy, thyromegaly Respiratory exam: PRESENT: clear to auscultation neo. ABSENT: rales, rhonchi, wheezes Cardiovascular exam: PRESENT: RRR. ABSENT: diastolic murmur, rubs, systolic murmur GI/Abdominal exam: PRESENT: normal bowel sounds, soft. ABSENT: distended, guarding, mass, organolmegaly, rebound, tenderness Extremities exam: ABSENT: calf tenderness, clubbing, pedal edema Neurological exam: PRESENT: alert, awake, oriented to person, oriented to place , oriented to time, oriented to situation, CN II-XII grossly intact. ABSENT: motor sensory deficit Psychiatric exam: PRESENT: appropriate affect Skin exam: PRESENT: dry, intact, warm. ABSENT: cyanosis, rash Results Laboratory Results: 04/03/17 04:31 04/03/17 04:31 04/01/17 04/01/17 13:28 19:26 Troponin I 0.028 0.018 Impressions: Chest X-Ray 03/31/17 21:30 IMPRESSION: NO ACUTE RADIOGRAPHIC FINDING IN THE CHEST. Assessment & Plan - Diagnosis (1) Chest pain Qualifiers: Chest pain type: unspecified Qualified Code(s): R07.9 - Chest pain, unspecified Is this a current diagnosis for this admission?: Yes Plan: The patient's chest pain most likely is related to the tachycardia. There was no increase in the troponins. (2) Sinus tachycardia Is this a current diagnosis for this admission?: Yes Plan: Patient has a history of tachycardia. The patient was orthostatic yesterday. Will stop the diltiazem and hold today's dose of metoprolol. Cardiology evaluated the patient yesterday and started him on Multitak. (3) Elevated troponin I level Is this a current diagnosis for this admission?: Yes Plan: This most likely is heart rate related. (4) Diabetes Qualifiers: Diabetes mellitus type: type 2 Diabetes mellitus complication status: with unspecified complications Diabetes mellitus custodial insulin use: unspecified custodial insulin use status Qualified Code(s): E11.8 - Type 2 diabetes mellitus with unspecified complications Is this a current diagnosis for this admission?: Yes Plan: Continue with sliding scale insulin. (5) Hyperkalemia Is this a current diagnosis for this admission?: Yes Plan: Resolved (6) Chronic pain following surgery or procedure Is this a current diagnosis for this admission?: Yes Plan: Continue with his outpatient Dilaudid dose. - Time Time Spent with patient: 25-34 minutes - Inpatient Certification Medical Necessity: Need Close Monitoring Due to Risk of Patient Decompensation
[2017-04-04] MEDS: INSULIN LISPRO 100 UNIT/ML 3 ML VIAL SUBCUT PRN ×2 (11:57→17:04)
--- NOTE | 2017-04-04 15:17 | PDOC PROGRESS REPORT ---
Subjective Progress Note for:: 04/04/17 Subjective:: Patient seems to be doing better with gradual improvement. Patient however remains dizzy on standing up. He continues to have problem with orthostatic blood pressure. As per my recommendation, Cardizem was stopped. Metoprolol is on hold. Have advised patient to wear support stockings. Pt is denying any chest arm or neck discomfort. Patient denying any PND, orthopnea. Patient denied any sustained palpitations, dizziness, syncope, near syncope. Patient denying any fever chills. Patient denying any other significant discomfort. Patient is maintaining sinus rhythm. Review of systems: Rest review of systems negative. Medications: Medications have been reviewed. Physical Exam Vital Signs: Temp Pulse Resp BP Pulse Ox 97.6 F 97 18 79/40 L 96 04/04/17 11:15 04/04/17 11:15 04/04/17 11:15 04/04/17 11:15 04/04/17 11:15 Intake & Output 04/03/17 04/04/17 04/05/17 06:59 06:59 06:59 Intake Total 2382 1151 236 Output Total 2950 2250 685 Balance -568 -1099 -380 Weight 147 kg 148 kg Exam: GENERAL: well-nourished and in no acute distress. Alert and oriented x3 HEAD: Atraumatic, normocephalic. EYES: Pupils equal round and reactive to light, extraocular movements intact, sclera anicteric, conjunctiva are normal. ENT: TMs normal, nares patent, oropharynx clear without exudates. Moist mucous membranes. No oral ulcerations or bleeding gums noted NECK: supple without lymphadenopathy. Trachea is central. No cervical or axillary lymphadenopathy noted. Carotids are 2+, JVD WNL LUNGS: Respiration seems nonlabored, no significant accessory muscle action noted. Breath sounds clear to auscultation bilaterally and equal noted. No wheezes rales or rhonchi noted. No significant dullness noted on percussion. CHEST: Palpation of the chest wall shows no significant chest wall tenderness. No other significant abnormalities noted. 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 ABDOMEN: Soft, no significant tenderness appreciated, normoactive bowel sounds. No guarding, no rebound. No rigidity noted . No masses appreciated. EXTREMITIES: Pedal pulses are 1-2+, no calf tenderness noted. No clubbing or cyanosis.trace to 1+ pedal edema noted NEUROLOGICAL: Focused neurological exam showed no significant neurologic deficit. Normal speech, no focal weakness appreciated. PSYCH: Normal mood, normal affect. Judgment and insight within normal limits. SKIN: No significant ecchymosis, rash, ulcerations or signs of pruritus noted. MUSCULOSKELETAL EXAM: No significant joint swelling noted. Results Laboratory Results: 04/03/17 04:31 04/03/17 04:31 04/01/17 04/01/17 13:28 19:26 Troponin I 0.028 0.018 Impressions: Chest X-Ray 03/31/17 21:30 IMPRESSION: NO ACUTE RADIOGRAPHIC FINDING IN THE CHEST. Assessment & Plan - Diagnosis (1) Paroxysmal atrial fibrillation Is this a current diagnosis for this admission?: Yes (2) Obesity Qualifiers: Obesity type: unspecified obesity type Is this a current diagnosis for this admission?: Yes (3) Sleep apnea syndrome Qualifiers: Sleep apnea type: unspecified type Qualified Code(s): G47.30 - Sleep apnea , unspecified Is this a current diagnosis for this admission?: Yes (4) Elevated troponin I level Is this a current diagnosis for this admission?: Yes (5) Diabetes Qualifiers: Diabetes mellitus type: type 2 Diabetes mellitus complication status: with unspecified complications Diabetes mellitus longterm insulin use: unspecified longterm insulin use status Qualified Code(s): E11.8 - Type 2 diabetes mellitus with unspecified complications Is this a current diagnosis for this admission?: Yes (6) Orthostatic hypotension Is this a current diagnosis for this admission?: Yes - Notes Notes: Patient is maintaining sinus rhythm. He however remains to have significant orthostatic hypotension. This is accompanied by dizziness. Medication changes were performed as noted. Patient to wear support stockings. It may be worthwhile to consider small dose of Midodrin if need be. May increase IV fluids cautiously. Continue with Multaq therapy. Continue with Ranexa for the time being. Discussed with patient's . - Time Time with patient: Greater than 35 minutes - CODE STATUS was discussed, patient remains full code. Surrogate decision-maker unchanged. Multiple medical problems were addressed. More than 50% of the time spent coordinating care, discussing management plans with involved caregivers. Management plans discussed with involved personnels. Medical decision making was of moderate to high complexity, patient's has multiple comorbidities. Medications reviewed and adjusted accordingly: Yes
[2017-04-04] MEDS ORDERED: HYDROMORPHONE HCL INJ/PF 2 MG/ML AMPULE IV PRN (18:48)
[2017-04-05 05:21] LABS: ABSOLUTE BASOPHILS # (AUTO) 0.1 10^3/uL (0.0-0.2); ABSOLUTE EOSINOPHILS # (AUTO) 0.1 10^3/uL (0.0-0.6); ABSOLUTE LYMPHOCYTES (AUTO) 1.1 10^3/uL (0.5-4.7); ABSOLUTE MONOCYTES (AUTO) 0.7 10^3/uL (0.1-1.4); ABSOLUTE NEUT (AUTO) 7.7 10^3/uL (1.7-8.2); BASOPHILS % (AUTO) 0.6 % (0-2); EOSINOPHILS % (AUTO) 1.2 % (0-6); HEMATOCRIT 29.8 % (37.9-51.0); HEMOGLOBIN 10.2 g/dL (13.5-17.0); HGB HCT DIFFERENCE 0.8; LYMPHOCYTES % (AUTO) 11.6 % (13-45); MEAN CORPUSCULAR HEMOGLOBIN 32.2 pg (27.0-33.4); MEAN CORPUSCULAR HGB CONC 34.3 g/dL (32.0-36.0); MEAN CORPUSCULAR VOLUME 94 fl (80-97); RED BLOOD COUNT 3.18 10^6/uL (4.35-5.55); RED CELL DISTRIBUTION WIDTH 14.2 % (11.5-14.0); SEGMENTED NEUTROPHILS % (AUTO) 79.6 % (42-78); WHITE BLOOD COUNT 9.7 10^3/uL (4.0-10.5)
[2017-04-05 05:41] LABS: ANION GAP 10 (5-19); BLOOD UREA NITROGEN 21 mg/dL (7-20); CARBON DIOXIDE 28 mmol/L (22-30); CHLORIDE 104 mmol/L (98-107); CREATININE RESULT 1.17 mg/dL (0.52-1.25); GLUCOSE 139 mg/dL (75-110); POTASSIUM 4.3 mmol/L (3.6-5.0); SODIUM 142.2 mmol/L (137-145)
[2017-04-05] MEDS: LANSOPRAZOLE 30 MG TAB.RAP.DR PO SCH (05:48)
[2017-04-05] MEDS: GABAPENTIN 400 MG CAPSULE PO SCH (05:48)
--- NOTE | 2017-04-05 10:40 | PDOC TRANSFER SUMMARY ---
General Admission Date/PCP: 04/01/17 12:12 Transfer Date: 04/05/17 Accepting Facility: [facility] Accepting Physician: dr alfredo Resuscitation Status: Full Code - Transfer Diagnosis (1) Chest pain Is this a current diagnosis for this admission?: Yes Diagnosis Summary: Negative cardiac enzymes (2) Sinus tachycardia Is this a current diagnosis for this admission?: Yes Diagnosis Summary: Patient has had sinus tachycardia as well as atrial fibrillation with rapid ventricular rate. Patient presented and was on digoxin and metoprolol. Because of continued tachycardia diltiazem was added on. His blood pressure has decreased and the diltiazem and metoprolol both have been stopped. He continues to have tachycardia with standing. He also has had problems with relatively low blood pressure possibly secondary to his chronic narcotic use in addition to the medications. (3) Elevated troponin I level Is this a current diagnosis for this admission?: Yes Diagnosis Summary: The patient's troponin was 0.08 when he presented. They continued to decrease with serial monitoring. (4) Diabetes Is this a current diagnosis for this admission?: Yes (5) Hyperkalemia Is this a current diagnosis for this admission?: Yes (6) Chronic pain following surgery or procedure Is this a current diagnosis for this admission?: Yes (7) Pulmonary embolism Is this a current diagnosis for this admission?: Yes Diagnosis Summary: Patient is on Eliquis. (8) COPD (chronic obstructive pulmonary disease) Is this a current diagnosis for this admission?: Yes - Transfer Medications Home Medications: Apixaban [Eliquis 5 mg Tablet] 5 mg PO BID 04/01/17 Cyanocobalamin (Vitamin B-12) [Vitamin B-12 1000 Mcg Tablet] 1,000 mcg PO DAILY 04/01/17 Cyclosporine 0.05% Oph Emulsio [Restasis 0.05% Opthalmic Droperette] 1 drop BTH_ EYE Q12 04/01/17 Difluprednate [Durezol] 1 drop OS DAILY 04/01/17 Digoxin [Lanoxin] 250 mcg PO DAILY 04/01/17 Duloxetine HCl [Cymbalta] 60 mg PO Q12 04/01/17 Esomeprazole Magnesium [Nexium] 40 mg PO DAILY 04/01/17 Fluticasone Propionate [Flonase Nasal [place] 50 Mcg/[place] 16 gm] 2 sprays NAREB DAILY 04/01/17 Gabapentin [Neurontin] 1,200 mg PO Q12 04/01/17 Hydromorphone HCl [Dilaudid] 8 mg PO DAILYP PRN 04/01/17 Metformin HCl [Glucophage 500 mg Tablet] 500 mg PO BIDACBS 04/01/17 Metoprolol Succinate [Toprol XL 200 mg Tablet] 200 mg PO DAILY 04/01/17 Ranolazine [Ranexa] 1,000 mg PO Q12 04/01/17 Valacyclovir HCl [Valtrex 500 Mg Tablet] 1,000 mg PO DAILY 04/01/17 Transfer Medications: Current Medications Albuterol (Ventolin 0.083% Neb 2.5 Mg/3 Ml Ampul) 2.5 mg NEB RTQ4HP PRN PRN Reason: FOR WHEEZING Stop: 05/01/17 12:10 Apixaban (Eliquis 5 Mg Tablet) 5 mg PO BID MELISSA Stop: 05/01/17 09:59 Last Admin: 04/04/17 17:04 Dose: 5 mg Cyanocobalamin (Vitamin B-12 1000 Mcg Tablet) 1,000 mcg PO DAILY MELISSA Stop: 05/01/17 09:59 Last Admin: 04/04/17 10:02 Dose: 1,000 mcg Cyclosporine (Restasis 0.05% Oph Emulsion Pf 0.4 Ml) 1 drop OU Q12 MELISSA Stop: 05/01/17 21:59 Last Admin: 04/04/17 22:34 Dose: Not Given Dextrose (Dextrose Inj 50% Syringe (25 Gm/50 Ml)) 12.5 gm IV PRN PRN; Protocol PRN Reason: FOR BG 50-69 IN ALERT PATIENT Stop: 05/01/17 06:15 Dextrose (Dextrose Inj 50% Syringe (25 Gm/50 Ml)) 25 gm IV PRN PRN PRN Reason: Protocol Stop: 05/01/17 06:15 Digoxin (Lanoxin 0.25 Mg Tablet) 0.25 mg PO DAILY MELISSA Stop: 05/01/17 09:59 Last Admin: 04/04/17 10:01 Dose: 0.25 mg Duloxetine HCl (Cymbalta 30 Mg Capsule.Dr) 60 mg PO BID MELISSA Stop: 05/01/17 09:59 Last Admin: 04/04/17 17:03 Dose: 60 mg Fluticasone Propionate (Flonase Nasal [place] 50 Mcg/[place] 16 Gm) 2 spray NAREB DAILY MELISSA Stop: 05/01/17 09:59 Last Admin: 04/04/17 10:02 Dose: 2 spray Gabapentin (Neurontin 400 Mg Capsule) 1,200 mg PO Q12A MELISSA Stop: 05/01/17 05:59 Last Admin: 04/05/17 05:48 Dose: 1,200 mg Glucagon (Glucagen Inj 1 Mg Vial) 1 mg IM PRN PRN; Protocol PRN Reason: EVALUATE FOR BG < 70 Stop: 05/01/17 06:15 Glucose (Glutose 40% Gel 15 Gm Tube) 15 gm PO PRN PRN; Protocol PRN Reason: FOR BG 50-69 IN ALERT PATIENT Stop: 05/01/17 06:15 Glucose (Glutose 40% Gel 15 Gm Tube) 30 gm PO PRN PRN; Protocol PRN Reason: FOR BG < 50 IN ALERT PATIENT Stop: 05/01/17 06:15 Hydromorphone HCl (Dilaudid 2 Mg Tablet) 4 mg PO Q6HP PRN Stop: 04/08/17 04:49 Last Admin: 04/01/17 14:33 Dose: 4 mg Hydromorphone HCl (Dilaudid Inj/Pf 2 Mg/Ml Ampule) 2 mg IV Q6HP PRN PRN Reason: PAIN Stop: 04/11/17 18:47 Insulin Human Lispro (Humalog Insulin 100 Unit/1 Ml 3 Ml Vial) 0 - 12 unit SUBCUT ACHSP PRN PRN Reason: Protocol Stop: 05/01/17 06:15 Last Admin: 04/04/17 17:04 Dose: 2 unit Lansoprazole (Prevacid 30 Mg Odt Tablet) 30 mg PO Q6AM MELISSA Stop: 05/01/17 05:59 Last Admin: 04/05/17 05:48 Dose: 30 mg Ondansetron HCl (Zofran Inj/Pf 4 Mg/2 Ml Sdv) 4 mg IV Q6HP PRN PRN Reason: FOR NAUSEA/VOMITING Stop: 05/01/17 11:04 Patient Own Medication (Difluprednate [Durezol]) 1 drop OS .DAILY MELISSA Stop: 05/02/17 09:59 Ranolazine (Ranexa 500 Mg Tab.Sr) 1,000 mg PO Q12 MELISSA Stop: 05/02/17 21:59 Last Admin: 04/04/17 22:34 Dose: 1,000 mg Sodium Biphosphate/Sodium Phosphate (Fleet Enema (Adult) 133 Ml) 133 ml TX Q12HP PRN Stop: 05/01/17 01:50 Valacyclovir HCl (Valtrex 500 Mg Tablet) 1,000 mg PO DAILY MELISSA Stop: 05/03/17 09:59 Last Admin: 04/04/17 10:03 Dose: 1,000 mg - Allergies Allergies/Adverse Reactions: ketorolac tromethamine [From Toradol] Allergy (Unknown, Verified 12/27/16 22:34) promethazine HCl [From Phenergan] Allergy (Unknown, Verified 12/27/16 22:34) aspirin [Aspirin] Allergy (Verified 12/27/16 22:34) Hives - Diet/Activity Discharge Diet: Cardiac, Diabetic Hospital Course Hospital Course: 56-year-old gentleman who has a history of atrial fibrillation, COPD, pulmonary embolism on Eliquis, chronic pain on Dilaudid who presented with 12 hour history of shortness of breath and tachycardia. Patient was found to have sinus tachycardia with 150s. He also has had episodes of atrial fibrillation. The patient received IV Lopressor while the emergency room with decrease in his heart rate. The patient however also was noted to have hypotension with systolic blood pressure in the 90s when he presented. The patient was admitted for further workup. Patient had serial cardiac enzymes and the first 1 was slightly elevated at 0.08 however serial cardiac enzymes after that decreased. The patient has continued to have episodes of SVT as well as atrial fibrillation. His heart rates have ranged from the low 50s up to the 140s. He had been on metoprolol and digoxin when he presented. He continued to have episodes of tachycardia and diltiazem was added on. This helped to control his heart rate however he developed problems with his blood pressure dropping low. First his diltiazem was stopped and he continued to have lower blood pressures and his metoprolol was stopped. The digoxin however was continued. He continues to have episodes of tachycardia with heart rate up to as high as 140 when he stands up. His blood pressure also has been decreasing when he stands up. His blood pressure has been decreased into the 80s. He does have chronic pain and takes fairly large amounts of Dilaudid chronically. Patient has been upset with me because I refused to give him any IV pain medication since blood pressure is low. The patient continues to have episodes of bradycardia and tachycardia and we are limited on the medications because of his blood pressure. Cardiology at [facility] evaluated the patient and started him on Multitak. The patient however has continued to have problems. He also has been put on Ranexa. The patient because of the tachyarrhythmias along with a bradycardia arrhythmias appears to have sick sinus syndrome most likely. I have discussed the case with cardiology at [place] and they graciously agreed to accept the patient in transfer. He may need an electrophysiology study. Physical Exam Vital Signs: Temp Pulse Resp BP Pulse Ox 97.7 F 121 H 27 H 77/52 L 100 04/05/17 00:35 04/05/17 08:36 04/05/17 08:36 04/05/17 08:36 04/05/17 08:36 Intake & Output 04/04/17 04/05/17 04/06/17 06:59 06:59 06:59 Intake Total 1151 514 Output Total 2250 1135 Balance -1099 -621 Weight 148 kg General appearance: PRESENT: no acute distress Eye exam: PRESENT: conjunctiva pink. ABSENT: scleral icterus Mouth exam: PRESENT: moist, tongue midline Neck exam: ABSENT: JVD Respiratory exam: PRESENT: clear to auscultation neo. ABSENT: rales, rhonchi, wheezes Cardiovascular exam: PRESENT: irregular rhythm. ABSENT: diastolic murmur, rubs , systolic murmur GI/Abdominal exam: PRESENT: normal bowel sounds, soft, tenderness - Mild diffuse tenderness. ABSENT: distended, guarding, mass, organolmegaly, rebound Extremities exam: ABSENT: calf tenderness, clubbing, pedal edema Neurological exam: PRESENT: alert, awake, oriented to person, oriented to place , oriented to time, oriented to situation, CN II-XII grossly intact. ABSENT: motor sensory deficit Psychiatric exam: PRESENT: appropriate affect Skin exam: PRESENT: dry, intact, warm. ABSENT: cyanosis, rash Results Laboratory Results: 04/05/17 05:03 04/05/17 05:03 04/04/17 04/05/17 04/05/17 20:10 05:03 05:03 WBC 9.7 RBC 3.18 L Hgb 10.2 L Hct 29.8 L MCV 94 MCH 32.2 MCHC 34.3 RDW 14.2 H Plt Count 205 Seg Neutrophils % 79.6 H Lymphocytes % 11.6 L Monocytes % 7.0 Eosinophils % 1.2 Basophils % 0.6 Absolute Neutrophils 7.7 Absolute Lymphocytes 1.1 Absolute Monocytes 0.7 Absolute Eosinophils 0.1 Absolute Basophils 0.1 Sodium 142.2 Potassium 4.3 Chloride 104 Carbon Dioxide 28 Anion Gap 10 BUN 21 H Creatinine 1.17 Est GFR ( Amer) > 60 Est GFR (Non-Af Amer) > 60 Glucose 139 H Calcium 9.0 Stool Occult Blood POSITIVE 04/01/17 04/01/17 13:28 19:26 Troponin I 0.028 0.018 Impressions: Chest X-Ray 03/31/17 21:30 IMPRESSION: NO ACUTE RADIOGRAPHIC FINDING IN THE CHEST. Plan Discharge Plan: Patient is to be transferred to [facility]. Dr. Alfredo is the accepting physician. Time Spent: Greater than 30 Minutes
[2017-04-05] MEDS: RANOLAZINE 500 MG TAB.SR.12H PO SCH (10:53)
[2017-04-05] MEDS: CYANOCOBALAMIN (VITAMIN B-12) 1,000 MCG TABLET PO SCH (10:54)
[2017-04-05] MEDS: DIGOXIN 0.25 MG TABLET PO SCH (10:54)
[2017-04-05] MEDS: CYCLOSPORINE 0.05% OPH EMULSIO 0.4 ML DROPERETTE OU SCH (10:54)
[2017-04-05] MEDS: VALACYCLOVIR HCL 500 MG TABLET PO SCH (10:54)
[2017-04-05] MEDS: FLUTICASONE NASAL SPRAY 50 MCG/SPRY 120 SPRAY/16 GM NAREB SCH (10:56)
[2017-04-05] MEDS: DULOXETINE HCL 30 MG CAPSULE.DR PO SCH (10:56)
[2017-04-05] MEDS: APIXABAN 5 MG TABLET PO SCH (10:57)
--- NOTE | 2017-04-05 11:34 | PDOC PROGRESS REPORT ---
Subjective Progress Note for:: 04/05/17 Subjective:: Patient continues to have problems with heart rhythm and also hypotension. Patient however remains dizzy on standing up. He continues to have problem with orthostatic blood pressure. As per my recommendation, Cardizem was stopped. Metoprolol is on hold. Have advised patient to wear support stockings. Pt is denying any chest arm or neck discomfort. Patient denying any PND, orthopnea. Patient continues with intermittent dizziness and near syncope. Patient denying any fever chills. Patient denying any other significant discomfort. Review of systems: Rest review of systems negative. Medications: Medications have been reviewed. Physical Exam Vital Signs: Temp Pulse Resp BP Pulse Ox 97.7 F 121 H 27 H 77/52 L 100 04/05/17 00:35 04/05/17 08:36 04/05/17 08:36 04/05/17 08:36 04/05/17 08:36 Intake & Output 04/04/17 04/05/17 04/06/17 06:59 06:59 06:59 Intake Total 1151 514 Output Total 2250 1135 Balance -1099 -621 Weight 148 kg Exam: GENERAL: well-nourished and in no acute distress. Alert and oriented x3 HEAD: Atraumatic, normocephalic. EYES: Pupils equal round and reactive to light, extraocular movements intact, sclera anicteric, conjunctiva are normal. ENT: TMs normal, nares patent, oropharynx clear without exudates. Moist mucous membranes. No oral ulcerations or bleeding gums noted NECK: supple without lymphadenopathy. Trachea is central. No cervical or axillary lymphadenopathy noted. Carotids are 2+, JVD WNL LUNGS: Respiration seems nonlabored, no significant accessory muscle action noted. Breath sounds clear to auscultation bilaterally and equal noted. No wheezes rales or rhonchi noted. No significant dullness noted on percussion. CHEST: Palpation of the chest wall shows no significant chest wall tenderness. No other significant abnormalities noted. 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 ABDOMEN: Soft, no significant tenderness appreciated, normoactive bowel sounds. No guarding, no rebound. No rigidity noted . No masses appreciated. EXTREMITIES: Pedal pulses are 1-2+, no calf tenderness noted. No clubbing or cyanosis.trace to 1+ pedal edema noted. Mild varicose veins noted NEUROLOGICAL: Focused neurological exam showed no significant neurologic deficit. Normal speech, no focal weakness appreciated. PSYCH: Normal mood, normal affect. Judgment and insight within normal limits. SKIN: No significant ecchymosis, rash, ulcerations or signs of pruritus noted. MUSCULOSKELETAL EXAM: No significant joint swelling noted. Results Laboratory Results: 04/05/17 05:03 04/05/17 05:03 04/04/17 04/05/17 04/05/17 20:10 05:03 05:03 WBC 9.7 RBC 3.18 L Hgb 10.2 L Hct 29.8 L MCV 94 MCH 32.2 MCHC 34.3 RDW 14.2 H Plt Count 205 Seg Neutrophils % 79.6 H Lymphocytes % 11.6 L Monocytes % 7.0 Eosinophils % 1.2 Basophils % 0.6 Absolute Neutrophils 7.7 Absolute Lymphocytes 1.1 Absolute Monocytes 0.7 Absolute Eosinophils 0.1 Absolute Basophils 0.1 Sodium 142.2 Potassium 4.3 Chloride 104 Carbon Dioxide 28 Anion Gap 10 BUN 21 H Creatinine 1.17 Est GFR ( Amer) > 60 Est GFR (Non-Af Amer) > 60 Glucose 139 H Calcium 9.0 Stool Occult Blood POSITIVE 04/01/17 04/01/17 13:28 19:26 Troponin I 0.028 0.018 Impressions: Chest X-Ray 03/31/17 21:30 IMPRESSION: NO ACUTE RADIOGRAPHIC FINDING IN THE CHEST. Assessment & Plan - Diagnosis (1) Paroxysmal atrial fibrillation Is this a current diagnosis for this admission?: Yes (2) Obesity Qualifiers: Obesity type: unspecified obesity type Is this a current diagnosis for this admission?: Yes (3) Sleep apnea syndrome Qualifiers: Sleep apnea type: unspecified type Qualified Code(s): G47.30 - Sleep apnea , unspecified Is this a current diagnosis for this admission?: Yes (4) Elevated troponin I level Is this a current diagnosis for this admission?: Yes (5) Diabetes Qualifiers: Diabetes mellitus type: type 2 Diabetes mellitus complication status: with unspecified complications 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 Feel that patient will benefit from tertiary care transfer with regards to ablation and better pain management. I am told that patient has been accepted at [facility] for further evaluation and management. Please follow my previous recommendations. At this point will sign off. Please call me or reconsult if there are any further problems. - Time Time with patient: 15-25 minutes - CODE STATUS was discussed, patient remains full code. Surrogate decision-maker patient's . Multiple medical problems were addressed. More than 50% of the time spent coordinating care, discussing management plans with involved caregivers. Management plans discussed with involved personnels. Medical decision making was of moderate to high complexity , patient's has multiple comorbidities. Medications reviewed and adjusted accordingly: Yes
[2017-04-05 13:33] VITALS: BP 115/73
== END 2017-04-05 14:27 | disposition short-term general hospital (02) | DRG 309 ==
LOC: ER 21:22 → EH 04-01 01:57 → UNDOADMIN 04-01 01:57 → EH 04-01 03:40 → 3N 04-01 03:40 → EH 04-01 12:12
PROVIDERS: ADMIT Internal Medicine; ATTEND Internal Medicine
PROC: 3E0F73Z Introduction of Anti-inflammatory into Respiratory Tract, Via Natural or Artificial Opening (ICD-10-PCS; principal; 2017-04-01)
DX: R00.0 Tachycardia, unspecified (principal); Z68.41 Body mass index [BMI] 40.0-44.9, adult; N17.9 Acute kidney failure, unspecified; R74.8 Abnormal levels of other serum enzymes; E87.5 Hyperkalemia; G89.28 Other chronic postprocedural pain; I10 Essential (primary) hypertension; E66.01 Morbid (severe) obesity due to excess calories; I48.0 Paroxysmal atrial fibrillation; J44.9 Chronic obstructive pulmonary disease, unspecified; G47.30 Sleep apnea, unspecified; E78.5 Hyperlipidemia, unspecified; K21.9 Gastro-esophageal reflux disease without esophagitis; F32.9 Major depressive disorder, single episode, unspecified; E11.8 Type 2 diabetes mellitus with unspecified complications; I95.1 Orthostatic hypotension; Z86.711 Personal history of pulmonary embolism; Z79.899 Other long term (current) drug therapy; Z88.6 Allergy status to analgesic agent; Z88.8 Allergy status to other drugs, medicaments and biological substances; Z86.718 Personal history of other venous thrombosis and embolism; Z79.01 Long term (current) use of anticoagulants; Z90.49 Acquired absence of other specified parts of digestive tract; Z82.49 Family history of ischemic heart disease and other diseases of the circulatory system
CPT/HCPCS: 36415; 71010; 80048; 82272; 82803; 82962; 84484; 85025; 93005; 93010; 93306; 96361; 96374; 96375; 96376; 99291; J1170; J1815; J2310; J3490; J7030

== ENCOUNTER → 2017-08-21 | Outpatient (CLI) | payer MEDICARE ==
--- NOTE | 2017-08-21 15:07 | RADIOLOGY REPORT (SQ) ---
EXAM DESCRIPTION: CT CHEST WITH; CT ABD/PELVIS WITH IV ONLY COMPLETED DATE/TIME: 08/21/2017 2:30 pm REASON FOR STUDY: OTHER BENIGN NEOPLASM OF SKIN OF TRUNK (D23.5); OTHER POLYURIA (R35.8), GASTRITIS (K29.70) D23.5 OTHER BENIGN NEOPLASM OF SKIN OF TRUNK K29.70 GASTRITIS, UNSPECIFIED, WITHOUT BLEEDI NG R35.8 OTHER POLYURIA COMPARISON: CT abdomen pelvis 09/20/2012 CT chest 01/16/2011, 08/10/2016, 12/27/2016 CONTRAST TYPE AND DOSE: contrast/concentration: Isovue 370.00 mg/ml; Total Contrast Delivered: 100.0 ml; Total Saline Delivered: 50.2 ml RENAL FUNCTION: Creatinine 1.3 TECHNIQUE: CT scan of the chest performed using helical scanning technique with dynamic intravenous contrast injection. Images reviewed with lung, soft tissue and bone windows. Reconstructed coronal a nd sagittal MPR images reviewed. All images stored on PACS. CT scan of the abdomen and pelvis performed with intravenous and without oral contrastusing helical s siri technique with dynamic intravenous contrast injection. Images reviewed with lung, soft tissu e and bone windows. Reconstructed coronal and sagittal MPR images reviewed. Delayed images for eval uation of the urinary system also acquired and evaluated. All images stored on PACS. All CT scanners at this facility use dose modulation, iterative reconstruction, and/or weight based d osing when appropriate to reduce radiation dose to as low as reasonably achievable (ALARA). [facility]: Dose Right [facility]: CareDose [facility]: Dose Right [facility]: Teradose 4D [facility]: [employer] RADIATION DOSE: CT Rad equipment meets quality standard of care and radiation dose reduction techniq ues were employed. CTDIvol: 26.4 - 28.4 mGy. DLP: 4602 mGy-cm. . LIMITATIONS: None. FINDINGS: CHEST: LUNGS AND PLEURA: Benign 5 mm noncalcified granuloma posterior left upper lobe unchanged from CT ches t in 2010. No acute infiltrates. No pleural effusion. No pneumothorax. Airways are patent. No worrisome nodu les. Stable bandlike scarring right lung base compared to 2011. HILAR AND MEDIASTINAL STRUCTURES: No identified masses or abnormal nodes. HEART AND VASCULAR STRUCTURES: No aneurysm or dissection. No central pulmonary emboli. No pericardi al effusion. Mild left coronary artery calcification. Aberrant left subclavian artery, an anatomic variant. HARDWARE: None. THYROID AND OTHER SOFT TISSUES: No masses. No adenopathy. BONES: Diffuse lower thoracic spine ankylosis OTHER: No other significant finding. ABDOMEN AND PELVIS: LIVER: Diffuse fatty infiltration. 1 cm cyst sub- diaphragmatic surface left lobe liver. SPLEEN: Normal size. No focal lesions. PANCREAS: No masses. No significant calcifications. No adjacent inflammation or peripancreatic fluid collections. Pancreatic duct not dilated. GALLBLADDER: Surgically absent ADRENAL GLANDS: No significant masses or asymmetry. RIGHT KIDNEY AND URETER: No solid masses. 1 cm cyst right lower pole kidney. No significant calcifi cation. No hydronephrosis or hydroureter. LEFT KIDNEY AND URETER: No solid masses. No significant calcification. No hydronephrosis or hydrouret er. AORTA AND VESSELS: No aneurysm. No dissection. Renal arteries, SMA, celiac without stenosis. RETROPERITONEUM: No retroperitoneal adenopathy, hemorrhage or masses. BOWEL AND PERITONEAL CAVITY: No masses or inflammatory changes. No free fluid or peritoneal masses. There are small bowel anastomotic dalton in the mid epigastrium and left upper quadrant. APPENDIX: Surgically absent ABDOMINAL WALL: Intact ventral hernia repair with mesh PELVIS: No mass or free fluid. Normal bladder. BONES: No significant or acute findings. OTHER: No other significant finding. IMPRESSION: No CT evidence of metastatic disease over the chest abdomen or pelvis Fatty liver. Post cholecystectomy. Evidence of prior small bowel surgery. Intact ventral hernia re pair. NORMAL CT OF THE ABDOMEN AND PELVIS WITH ORAL AND INTRAVENOUS CONTRAST. TECHNICAL DOCUMENTATION: JOB ID: [id number] Quality ID # [id number]: Final reports with documentation of one or more dose reduction techniques (e.g., Au tomated exposure control, adjustment of the mA and/or kV according to patient size, use of iterative reconstruction technique) 2010 [employer]- All Rights Reserved Reading location - IP/workstation name: [email or web address]
== END ==
LOC: RAD 13:26
PROVIDERS: ATTEND Internal Medicine Infectious Disease
DX: G52.2 Disorders of vagus nerve (principal); D23.5 Other benign neoplasm of skin of trunk; R35.8 Other polyuria; K29.70 Gastritis, unspecified, without bleeding
CPT/HCPCS: 71260; 74177; 82565

== ENCOUNTER 2017-11-30 15:49 | Inpatient (IN) | payer MEDICARE ==
--- NOTE | 2017-11-30 17:26 | ER Document Report ---
ED Medical Screen (RME) - General Chief Complaint: Chest Pain Stated Complaint: CHEST PAIN Time Seen by Provider: 11/30/17 17:24 TRAVEL OUTSIDE OF THE [place] IN LAST 30 DAYS: No - HPI Notes: 11/30/17 17:25 Chest pain since yesterday with history of CAD L last catheterization 2016 that was normal - Related Data Allergies/Adverse Reactions: ketorolac tromethamine [From Toradol] Allergy (Unknown, Verified 12/27/16 22:34) promethazine HCl [From Phenergan] Allergy (Unknown, Verified 12/27/16 22:34) aspirin [Aspirin] Allergy (Verified 12/27/16 22:34) Hives Past Medical History - Social History Chew tobacco use (# tins/day): No Frequency of alcohol use: None Drug Abuse: None - Past Medical History Cardiac Medical History: Reports: Hx DVT, Hx Hypercholesterolemia, Hx Hypertension, Hx Pulmonary Embolism Denies: Hx Heart Attack Pulmonary Medical History: Reports: Hx COPD Denies: Hx Asthma, Hx Tuberculosis Neurological Medical History: Denies: Hx Cerebrovascular Accident, Hx Seizures Endocrine Medical History: Reports: Hx Diabetes Mellitus Type 2 Renal/ Medical History: Denies: Hx Peritoneal Dialysis GI Medical History: Reports: Hx Gastroesophageal Reflux Disease. Denies: Hx Hepatitis, Hx Hiatal Hernia, Hx Ulcer Psychiatric Medical History: Reports: Hx Depression Infectious Medical History: Denies: Hx Hepatitis Past Surgical History: Reports: Hx Abdominal Surgery - x3 related to the pancreatitis and pseudocyst, Hx Cholecystectomy, Hx Orthopedic Surgery - Right femur, right knee, Other - Cardiac catheterization and cardioversion per patient.. Denies: Hx Open Heart Surgery, Hx Pacemaker - Immunizations Hx Diphtheria, Pertussis, Tetanus Vaccination: Yes History of Influenza Vaccine for 02/2017 - 07/2017 Season: No Review of Systems - Review of Systems Cardiovascular: Chest pain Physical Exam - Vital signs Vitals: Temp Pulse Resp Pulse Ox 99.3 F 110 H 18 93 11/30/17 16:07 11/30/17 16:07 11/30/17 16:07 11/30/17 16:07 - Cardiovascular Rhythm: Regular, Tachycardia Course - Vital Signs Vital signs: Temp Pulse Resp BP Pulse Ox 99.3 F 110 H 18 93 11/30/17 16:07 11/30/17 16:07 11/30/17 16:07 11/30/17 16:07 Doctor's Discharge - Discharge Referrals: MARY ANNE VU MD [Primary Care Provider] - Follow up as needed
[2017-11-30 18:03] LABS: ABSOLUTE BASOPHILS # (AUTO) 0.1 10^3/uL (0.0-0.2); ABSOLUTE EOSINOPHILS # (AUTO) 0.1 10^3/uL (0.0-0.6); ABSOLUTE LYMPHOCYTES (AUTO) 1.9 10^3/uL (0.5-4.7); ABSOLUTE MONOCYTES (AUTO) 0.9 10^3/uL (0.1-1.4); ABSOLUTE NEUT (AUTO) 7.5 10^3/uL (1.7-8.2); BASOPHILS % (AUTO) 0.6 % (0-2); EOSINOPHILS % (AUTO) 0.9 % (0-6); HEMATOCRIT 46.6 % (37.9-51.0); HEMOGLOBIN 15.9 g/dL (13.5-17.0); LYMPHOCYTES % (AUTO) 18.3 % (13-45); MEAN CORPUSCULAR HEMOGLOBIN 31.1 pg (27.0-33.4); MEAN CORPUSCULAR HGB CONC 34.2 g/dL (32.0-36.0); MEAN CORPUSCULAR VOLUME 91 fl (80-97); MONOCYTES % (AUTO) 8.9 % (3-13); PLATELET COUNT 257 10^3/uL (150-450); RED BLOOD COUNT 5.13 10^6/uL (4.35-5.55); RED CELL DISTRIBUTION WIDTH 13.5 % (11.5-14.0); SEGMENTED NEUTROPHILS % (AUTO) 71.3 % (42-78); TOTAL CELLS COUNTED % (AUTO) 100 %; WHITE BLOOD COUNT 10.5 10^3/uL (4.0-10.5)
[2017-11-30 18:10] LABS: PROTHROMBIN TIME 13.7 SEC (11.4-15.4)
--- NOTE | 2017-11-30 18:16 | RADIOLOGY REPORT (SQ) ---
EXAM DESCRIPTION: CHEST 2 VIEWS COMPLETED DATE/TIME: 11/30/2017 5:59 pm REASON FOR STUDY: sob COMPARISON: 08/09/2016 EXAM PARAMETERS: NUMBER OF VIEWS: two views TECHNIQUE: Digital Frontal and Lateral radiographic views of the chest acquired. RADIATION DOSE: NA LIMITATIONS: none FINDINGS: LUNGS AND PLEURA: No acute opacities, masses or pneumothorax. No pleural effusion. MEDIASTINUM AND HILAR STRUCTURES: Stable. HEART AND VASCULAR STRUCTURES: Heart normal size. No evidence for failure. BONES: No acute findings. HARDWARE: None in the chest. OTHER: No other significant finding. IMPRESSION: NO ACUTE RADIOGRAPHIC FINDING IN THE CHEST. TECHNICAL DOCUMENTATION: JOB ID: [id number] [id number] 2010 [employer]- All Rights Reserved Reading location - IP/workstation name: [address]
--- NOTE | 2017-11-30 19:48 | ER Document Report ---
ED Cardiac - General Chief Complaint: Chest Pain Stated Complaint: CHEST PAIN Time Seen by Provider: 11/30/17 17:24 Notes: Patient is a 57-year-old male with a past medical history of tachycardia, pulmonary embolus is currently anticoagulated on Eliquis, hypertension, chronic pain who presents with chest pain that has been ongoing since yesterday. He describes it as a diffuse pressure-like sensation in his chest radiating to his bilateral upper extremities worsened by exertion. He states the pain has gotten progressively worse since onset and got to a point where he was extremely concerned that something serious could be going on prompted him to come to the hospital. He has never had a myocardial infarction. He had a cardiac catheterization in 2016 with noted to be normal per his report. He has not had a stress test or catheterization since that time. He has not seen his general doctor regarding today's concerns. He does note ongoing chest pressure. No associated nausea, vomiting or diaphoresis but does note that he feels somewhat short of breath. TRAVEL OUTSIDE OF THE [place] IN LAST 30 DAYS: No - Related Data Allergies/Adverse Reactions: ketorolac tromethamine [From Toradol] Allergy (Unknown, Verified 12/27/16 22:34) promethazine HCl [From Phenergan] Allergy (Unknown, Verified 12/27/16 22:34) aspirin [Aspirin] Allergy (Verified 12/27/16 22:34) Hives Past Medical History - General Information source: Patient - Social History Smoking Status: Former Smoker Chew tobacco use (# tins/day): No Frequency of alcohol use: None Drug Abuse: None Lives with: Spouse/Significant other Family History: CAD Patient has suicidal ideation: No Patient has homicidal ideation: No - Past Medical History Cardiac Medical History: Reports: Hx DVT, Hx Hypercholesterolemia, Hx Hypertension, Hx Pulmonary Embolism Denies: Hx Heart Attack Pulmonary Medical History: Reports: Hx COPD Denies: Hx Asthma, Hx Tuberculosis Neurological Medical History: Denies: Hx Cerebrovascular Accident, Hx Seizures Endocrine Medical History: Reports: Hx Diabetes Mellitus Type 2 Renal/ Medical History: Denies: Hx Peritoneal Dialysis GI Medical History: Reports: Hx Gastroesophageal Reflux Disease. Denies: Hx Hepatitis, Hx Hiatal Hernia, Hx Ulcer Psychiatric Medical History: Reports: Hx Depression Infectious Medical History: Denies: Hx Hepatitis Past Surgical History: Reports: Hx Abdominal Surgery - x3 related to the pancreatitis and pseudocyst, Hx Cholecystectomy, Hx Orthopedic Surgery - Right femur, right knee, Other - Cardiac catheterization and cardioversion per patient.. Denies: Hx Open Heart Surgery, Hx Pacemaker - Immunizations Hx Diphtheria, Pertussis, Tetanus Vaccination: Yes Review of Systems - Review of Systems Notes: Constitutional: Negative for fever. HENT: Negative for sore throat. Eyes: Negative for visual changes. Cardiovascular: Positive for chest pain. Respiratory: Positive for shortness of breath. Gastrointestinal: Negative for abdominal pain, vomiting or diarrhea. Genitourinary: Negative for dysuria. Musculoskeletal: Negative for back pain. Skin: Negative for rash. Neurological: Negative for headaches, weakness or numbness. 10 point ROS negative except as marked above and in HPI. Physical Exam - Vital signs Vitals: Temp Pulse Resp Pulse Ox 99.3 F 110 H 18 93 11/30/17 16:07 11/30/17 16:07 11/30/17 16:07 11/30/17 16:07 Interpretation: Tachycardic - Resolved at the time of my assessment Notes: PHYSICAL EXAMINATION: GENERAL: Well-appearing, well-nourished and in no acute distress. HEAD: Atraumatic, normocephalic. EYES: Pupils equal round and reactive to light, extraocular movements intact, sclera anicteric, conjunctiva are normal. ENT: nares patent, oropharynx clear without exudates. Moist mucous membranes. NECK: Normal range of motion, supple without lymphadenopathy LUNGS: Breath sounds clear to auscultation bilaterally and equal. No wheezes rales or rhonchi. HEART: Regular rate and rhythm without murmurs ABDOMEN: Soft, nontender, normoactive bowel sounds. No guarding, no rebound. No masses appreciated. EXTREMITIES: Normal range of motion, no pitting or edema. No cyanosis. NEUROLOGICAL: No focal neurological deficits. Moves all extremities spontaneously and on command. PSYCH: Normal mood, normal affect. SKIN: Warm, Dry, normal turgor, no rashes or lesions noted. Course - Re-evaluation Re-evalutation: 11/30/17 19:47 Presentation of chest pain in an otherwise well appearing patient. CXR without evidence of pneumothorax or pneumonia. No widened mediastinum. Aortic dissection also seems unlikely given history, symmetric pulses, CXR, and vitals. Primary concern is for possible ACS given clinical history. Pulmonary embolus is also in the differential given his initial tachycardia as well as a known history of pulmonary emboli. Proceed with labs including d-dimer and reassess 11/30/17 21:10 Initial troponin is normal. D-dimer is negative. Patient's pain is mostly resolved of receiving nitroglycerin. Given his high risk history I have discussed with the hospitalist who is excepted the patient for admission for inpatient stress testing and serial cardiac marker testing. - Vital Signs Vital signs: Temp Pulse Resp BP Pulse Ox 99.3 F 110 H 18 93 11/30/17 16:07 11/30/17 16:07 11/30/17 16:07 11/30/17 16:07 - Laboratory Result Diagrams: 11/30/17 17:44 11/30/17 19:40 Laboratory results interpreted by me: 11/30/17 19:40 BUN 24 H Creatinine 1.56 H Est GFR ( Amer) 56 L Est GFR (Non-Af Amer) 46 L Glucose 177 H - Diagnostic Test Radiology reviewed: Image reviewed, Reports reviewed Radiology results interpreted by me: 11/30/17 19:48 Chest x-ray: No acute event or pneumothorax - EKG Interpretation by Me Additional EKG results interpreted by me: 11/30/17 19:48 Sinus tachycardia. Rate 102. No ST elevations or depressions. QTC is 454. Discharge - Discharge Clinical Impression: Shortness of breath Chest pain Qualifiers: Chest pain type: unspecified Qualified Code(s): R07.9 - Chest pain, unspecified Condition: Fair Disposition: ADMITTED OBSERVATION Admitting Provider: Hospitalist Unit Admitted: Telemetry Referrals: MARY ANNE VU MD [NO LOCAL MD] - Follow up as needed
[2017-11-30 20:18] LABS: ALANINE AMINOTRANSFERASE 49 U/L (21-72); ALBUMIN 3.9 g/dL (3.5-5.0); ALKALINE PHOSPHATASE 86 U/L (38-126); ANION GAP 13 (5-19); ASPARTATE AMINO TRANSFERASE 30 U/L (17-59); BILIRUBIN,DIRECT 0.3 mg/dL (0.0-0.4); BILIRUBIN,TOTAL 0.5 mg/dL (0.2-1.3); BLOOD UREA NITROGEN 24 mg/dL (7-20); CALCIUM 9.3 mg/dL (8.4-10.2); CARBON DIOXIDE 24 mmol/L (22-30); CHLORIDE 103 mmol/L (98-107); CREATINE KINASE 57 U/L (55-170); GLUCOSE 177 mg/dL (75-110); POTASSIUM 4.6 mmol/L (3.6-5.0); SODIUM 139.6 mmol/L (137-145); TOTAL PROTEIN 7.1 g/dL (6.3-8.2)
[2017-11-30 20:30] LABS: CREATINE KINASE MB 0.72 ng/mL (<4.55)
[2017-11-30 20:31] LABS: TROPONIN I < 0.012 ng/mL
[2017-11-30] MEDS: NITROGLYCERIN 0.4 MG/TAB 25 TAB/BOTTLE SL PRN ×2 (20:40→20:51)
[2017-11-30] MEDS: HYDROMORPHONE HCL INJ/PF 2 MG/ML AMPULE IV PRN ×2 (21:29→23:20)
--- NOTE | 2017-11-30 22:07 | EKG REPORT ---
SEVERITY:- ABNORMAL ECG - SINUS TACHYCARDIA IVCD, CONSIDER ATYPICAL RBBB : Confirmed by: Rowena Sigala MD 30-Nov-2017 22:06:53
[2017-12-01] MEDS ORDERED: HYDROMORPHONE HCL INJ/PF 2 MG/ML AMPULE IV ONE (00:45)
[2017-12-01] MEDS ORDERED: GLUCAGON,HUMAN RECOMB 1 MG INJ SUBCUT PRN (01:40)
[2017-12-01] MEDS ORDERED: MAG HYDROX/AL HYDROX/SIMETH SUSP 30 ML UDCUP PO PRN (01:40)
[2017-12-01] MEDS ORDERED: ACETAMINOPHEN 325 MG TABLET PO PRN (01:40)
[2017-12-01] MEDS ORDERED: DEXTROSE 40% GEL 15 GM TUBE PO PRN ×4 (01:40→01:57)
[2017-12-01] MEDS ORDERED: DEXTROSE 50%-WATER 25 GM/50 ML DISP.SYRIN IV PRN ×4 (01:40→01:57)
[2017-12-01] MEDS ORDERED: INSULIN REG, HUMAN 100 UNIT/ML 3 ML VIAL (PYX) SUBCUT PRN (01:57)
[2017-12-01] MEDS ORDERED: GLUCAGON,HUMAN RECOMB 1 MG INJ IM PRN (01:57)
[2017-12-01] MEDS ORDERED: HYDROMORPHONE HCL 2 MG TABLET PO PRN ×2 (02:05→02:15)
[2017-12-01] MEDS: NITROGLYCERIN 0.4 MG/TAB 25 TAB/BOTTLE SL PRN ×5 (02:35→12:15)
--- NOTE | 2017-12-01 03:30 | PDOC H&P ---
History of Present Illness Admission Date/PCP: 11/30/17 21:31 Shilo Ayoub Patient complains of: Chest pain History of Present Illness: CARMEN RAZO SR is a 57 year old male with medical history of tachybrady arrhythmia, SVT, A. fib, DVT, on high dose of Dilaudid p.o., who comes to the emergency department complaining of chest pain for the last 2 days. Describes the pain in the center of his chest that has been persistent, worsening with movement and exertion, radiated across the chest, overnight the pain improved but came back the next day. Refers up to 10/10 intensity, like a band crossing his chest, associated with dizziness, nausea and a little shortness of breath. Tells me that he had chest pains in the past but nothing like this. Tells me that he has usually normal exertional tolerance with minimal limitation. Follows with cardiology Dr. Panda and Amira in [place]. 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 tells me that recently his Ranexa and digoxin has been stopped, his metoprolol has been decreased to 100 mg a day and he was started on flecainide. Patient had a false positive stress test in 2016 followed by a normal cardiac catheterization. She also has orthostatic hypotension not on Midodrine. Chronically on Eliquis for a history of PE 2 sets of troponins negative, Past Medical History Cardiac Medical History: Reports: Atrial Fibrillation - Paroxysmal, DVT, Hyperlipidema, Hypertension, Pulmonary Embolism, Other - SVT, tachybrady arrhythmia, orthostatic hypotension, obstructive sleep apne Denies: Myocardial Infarction Pulmonary Medical History: Reports: Chronic Obstructive Pulmonary Disease (COPD) Denies: Asthma, Tuberculosis Neurological Medical History: Denies: Seizures Endocrine Medical History: Reports: Diabetes Mellitus Type 2 GI Medical History: Reports: Gastroesophageal Reflux Disease, Other - Chronic abdominal pain follow surgery for pancreatic cyst complicated with Denies: Hepatitis, Hiatal Hernia Musculoskeltal Medical History: Reports: Other Psychiatric Medical History: Reports: Depression - anxiety Hematology: Denies: Anemia, Sickle Cell Disease Past Surgical History Past Surgical History: Pancreatic cyst surgery, complicated with a severe infection Past Surgical History: Reports: Cholecystectomy, Orthopedic Surgery - Right femur, right knee, Other - Cardiac catheterization and cardioversion per patient. Denies: Pacemaker Social History Information Source: Patient Lives with: Spouse/Significant other Smoking Status: Former Smoker Number of Years Smokin Frequency of Alcohol Use: None Hx Recreational Drug Use: No Drugs: None Hx Prescription Drug Abuse: No Family History Family History: CAD Family History: Strong family history of heart disease on his mother's side uncles with CO, CABG 4 and other heart diseases. Parental Family History Reviewed: No Children Family History Reviewed: NA Sibling(s) Family History Reviewed.: NA Medication/Allergy Home Medications: Apixaban [Eliquis 5 mg Tablet] 5 mg PO BID 04/01/17 Cyanocobalamin (Vitamin B-12) [Vitamin B-12 1000 Mcg Tablet] 1,000 mcg PO DAILY 04/01/17 Cyclosporine 0.05% Oph Emulsio [Restasis 0.05% Opthalmic Droperette] 1 drop BTH_ EYE Q12 04/01/17 Difluprednate [Durezol] 1 drop OS DAILY 04/01/17 Duloxetine HCl [Cymbalta] 60 mg PO Q12 04/01/17 Esomeprazole Magnesium [Nexium] 40 mg PO BID 04/01/17 Fluticasone Propionate [Flonase Nasal [place] 50 Mcg/[place] 16 gm] 2 sprays NAREB DAILY 04/01/17 Hydromorphone HCl [Dilaudid] 1 - 2 tab PO DAILYP PRN 04/01/17 Metformin HCl [Glucophage 500 mg Tablet] 500 mg PO BIDACBS 04/01/17 Metoprolol Succinate [Toprol XL 200 mg Tablet] 100 mg PO DAILY 04/01/17 Valacyclovir HCl [Valtrex 500 Mg Tablet] 500 mg PO DAILY 04/01/17 Flecainide Acetate [Tambocor 100 Mg Tablet] 100 mg PO BID 12/01/17 Gabapentin Enacarbil [Horizant] 1,200 mg PO QHS 12/01/17 Gabapentin Enacarbil [Horizant] 600 mg PO DAILY 12/01/17 Allergies/Adverse Reactions: ketorolac tromethamine [From Toradol] Allergy (Unknown, Verified 12/01/17 00:06) promethazine HCl [From Phenergan] Allergy (Unknown, Verified 12/01/17 00:06) aspirin [Aspirin] Allergy (Verified 12/27/16 22:34) Hives Review of Systems Review of Systems: As outlined in the HPI, all others negative Physical Exam Vital Signs: Temp Pulse Resp BP Pulse Ox 99.3 F 110 H 13 98/67 L 93 11/30/17 16:07 11/30/17 16:07 12/01/17 02:43 12/01/17 02:43 12/01/17 02:43 Intake & Output 11/29/17 11/30/17 12/01/17 06:59 06:59 06:59 Output Total 625 Balance -625 Additional comments: General appearance: Well-developed, obese, alert and cooperative, and appears to be in no acute distress Head: Normocephalic Eyes: PEERL, EOMI, vision is grossly intact. Ears: External auditory canal and tympanic membranes clear, hearing grossly intact. Nose: No nasal discharge. Throat: Oral cavity and pharynx normal. No inflammation, swelling, exudate or lesions. Neck: Neck supple, nontender without lymphadenopathy, masses or thyromegaly. Cardiac: Normal S1 and S2. No S3, S4 or murmurs. Rhythm is regular. There is no peripheral edema, cyanosis or pallor. Extremities are warm and well perfused. Capillary refill is less than 2 seconds. No carotid bruits. Lungs: Clear to auscultation and percussion without rales, rhonchi, wheezing or diminished breath sounds. Not using accessory muscles. Thorax: No tenderness/ reproducible pain to palpation Abdomen: Positive bowel sounds. Soft. Epigastric tenderness to superficial palpation which is chronic. No guarding or rebound. No masses. Difficult to appreciate hepatosplenomegaly recommended to body habitus. Large abdominal scar. Extremities: No significant deformity or joint abnormality. No edema. Peripheral pulses intact. No varicosities. Neurological: Cranial nerves II through XII grossly intact. Strength and sensation symmetric and intact throughout. Reflexes 2+ throughout. Skin: Skin normal color, texture and turgor with no lesions or eruptions, warm and dry. Psychiatric: The mental examination revealed the patient was oriented to person , place, and time. The patient was able to demonstrate good judgment on recent , without hallucinations, abnormal affect or abnormal behaviors. Results Laboratory Results: 11/30/17 22:45 Troponin I < 0.012 11/30/17 11/30/17 11/30/17 17:44 17:44 19:40 WBC 10.5 RBC 5.13 Hgb 15.9 Hct 46.6 MCV 91 MCH 31.1 MCHC 34.2 RDW 13.5 Plt Count 257 Seg Neutrophils % 71.3 Lymphocytes % 18.3 Monocytes % 8.9 Eosinophils % 0.9 Basophils % 0.6 Absolute Neutrophils 7.5 Absolute Lymphocytes 1.9 Absolute Monocytes 0.9 Absolute Eosinophils 0.1 Absolute Basophils 0.1 PT 13.7 INR 1.00 D-Dimer Sodium 139.6 Potassium 4.6 Chloride 103 Anion Gap 13 BUN 24 H Creatinine 1.56 H Est GFR ( Amer) 56 L Est GFR (Non-Af Amer) 46 L Glucose 177 H Calcium 9.3 Total Bilirubin 0.5 Neonat Indirect Bili Not Reportable AST 30 ALT 49 Alkaline Phosphatase 86 CK-MB (CK-2) Troponin I Total Protein 7.1 Albumin 3.9 11/30/17 11/30/17 11/30/17 19:40 19:40 22:45 WBC RBC Hgb Hct MCV MCH MCHC RDW Plt Count Seg Neutrophils % Lymphocytes % Monocytes % Eosinophils % Basophils % Absolute Neutrophils Absolute Lymphocytes Absolute Monocytes Absolute Eosinophils Absolute Basophils PT INR D-Dimer < 0.27 Sodium Potassium Chloride Anion Gap BUN Creatinine Est GFR ( Amer) Est GFR (Non-Af Amer) Glucose Calcium Total Bilirubin Neonat Indirect Bili AST ALT Alkaline Phosphatase CK-MB (CK-2) 0.72 Troponin I < 0.012 < 0.012 Total Protein Albumin Impressions: Chest X-Ray 11/30/17 17:25 IMPRESSION: NO ACUTE RADIOGRAPHIC FINDING IN THE CHEST. Assessment & Plan - Diagnosis (1) Chest pain Qualifiers: Chest pain type: unspecified Qualified Code(s): R07.9 - Chest pain, unspecified Is this a current diagnosis for this admission?: Yes Plan: Patient comes complaining chest pain for 2 days which improved partially with 2 sublingual nitroglycerin at home, requesting several doses of IV Dilaudid. Currently pain is 4/10 in intensity, 2 sets of troponins negative, EKG with no acute changes. We will give the patient n.p.o. for a stress test during the day. Telemetry monitoring. Cardiac markers 3. Resolution sublingual if pressure tolerates. IV Dilaudid as needed as the patient has high tolerance to opioids. (2) Diabetes Qualifiers: Diabetes mellitus type: type 2 Diabetes mellitus meterman insulin use: unspecified snf insulin use status Diabetes mellitus complication status : with unspecified complications Qualified Code(s): E11.8 - Type 2 diabetes mellitus with unspecified complications Is this a current diagnosis for this admission?: Yes Plan: Accu-Cheks every 6 hours with insulin lispro sliding scale and hypoglycemia protocol. Metformin will hold. Patient stated that his A1c has been doing well. A1c in the morning. (3) Orthostatic hypotension Is this a current diagnosis for this admission?: Yes Plan: Patient diagnosed with orthostatic hypotension April 2017, normal middle drain. BP in the ED laying down 125/82, sitting up 119/79, standing 108/77 (4) Obesity Qualifiers: Obesity type: unspecified obesity type Body mass index: BMI 31.0-31.9 Is this a current diagnosis for this admission?: Yes Plan: Lifestyle modification (5) Paroxysmal atrial fibrillation Is this a current diagnosis for this admission?: Yes Plan: Patient is currently sinus rhythm, on anticoagulation with Eliquis continue flecainide (6) Sleep apnea syndrome Qualifiers: Sleep apnea type: unspecified type Qualified Code(s): G47.30 - Sleep apnea , unspecified (7) Chronic pain following surgery or procedure Is this a current diagnosis for this admission?: Yes Plan: After his pancreatic surgery with complications patient has been placing high- dose Dilaudid 8mg daily. (8) History of pulmonary embolism Is this a current diagnosis for this admission?: Yes Plan: On Eliquis - Time Time Spent: 30 to 50 Minutes
[2017-12-01] MEDS: HYDROMORPHONE HCL INJ/PF 2 MG/ML AMPULE IV PRN ×6 (03:31→22:14)
--- NOTE | 2017-12-01 08:00 | EKG REPORT ---
SEVERITY:- ABNORMAL ECG - SINUS RHYTHM NONSPECIFIC INTRAVENTRICULAR CONDUCTION DELAY : Confirmed by: Rowena Sigala MD 01-Dec-2017 07:59:21
[2017-12-01] MEDS ORDERED: (PENDING PHARMACY ID) (Difluprednate [Durezol] 1 DROP) OS SCH (10:00)
[2017-12-01] MEDS ORDERED: ENOXAPARIN SODIUM INJ 40 MG/0.4 ML DISP.SYRIN SUBCUT SCH (10:00)
[2017-12-01] MEDS ORDERED: LANSOPRAZOLE 30 MG TAB.RAP.DR PO SCH (10:00)
[2017-12-01] MEDS: METOPROLOL SUCCINATE 50 MG TAB.SR.24H PO SCH (10:02)
[2017-12-01] MEDS: DULOXETINE HCL 30 MG CAPSULE.DR PO SCH ×2 (10:02→17:49)
[2017-12-01] MEDS: CYCLOSPORINE 0.05% OPH EMULSIO 0.4 ML DROPERETTE OD SCH ×2 (10:03→22:21)
[2017-12-01] MEDS: GABAPENTIN 300 MG CAPSULE PO SCH (10:03)
[2017-12-01] MEDS: VALACYCLOVIR HCL 500 MG TABLET PO SCH (10:03)
[2017-12-01] MEDS: CYANOCOBALAMIN (VITAMIN B-12) 1,000 MCG TABLET PO SCH (10:04)
[2017-12-01] MEDS: FLUTICASONE NASAL SPRAY 50 MCG/SPRY 120 SPRAY/16 GM NAREB SCH (10:04)
[2017-12-01] MEDS: FLECAINIDE ACETATE 100 MG TABLET PO SCH ×2 (10:04→17:49)
[2017-12-01] MEDS: APIXABAN 5 MG TABLET PO SCH ×2 (10:22→17:49)
[2017-12-01] MEDS ORDERED: LIDOCAINE 2% VISCOUS SOLN 20 ML UDCUP PO PRN (13:35)
[2017-12-01] MEDS: CALCIUM CARBONATE 500 MG TAB.CHEW PO SCH ×2 (16:33→22:24)
[2017-12-01] MEDS: PANTOPRAZOLE SODIUM 40 MG VIAL IV SCH (17:48)
--- NOTE | 2017-12-01 18:29 | Progress Note ---
Provider Note Provider Note: 57 y.o. M admitted for chest pain. Seen this morning on rounds, he is sitting in bed eating lunch. The patient complains of midsternal chest pain, states it has improved from 5/5 to 3/5 intensity following IV dilaudid and 1 SL Nitro tablet. The patient describes his pain as a tightness, exacerbated with activity. He does not appear to be in distress. S1S2. Lung sounds clear upon auscultation. Continue with Resident Buyer's treatment plan: 1. CHEST PAIN: Serial troponin <0.012. EKG demonstrates NSR. Patient endorses mild chest pain relief following SL Nitro tablets, but so far has only received 1 or 2 tablets at a time. Instructed nursing staff to administer SL Nitro tablets q 5 min (MAX 3 tablets) until patient is chest pain free. Patient unable to participate in cardiac stress test this morning due to active chest pain. Evaluated by Policy Specialist, Dr. Max, who feels that patient is likely experiencing reflux - started on BID lansoprazole and GI cocktail (maalox/ viscous lidocaine) q6hr. Still plan to carry out stress test when patient is chest pain free. 2. DIABETES: ACHS Accu-Cheks. Humalog sliding scale. Will check A1c with a.m. labs. 3. PAROXYSMAL AFIB: Currently in NSR. Continue home dose of Eliquis and flecanide. 4. CHRONIC PAIN: following a number of abdominal surgeries related to pancreatitis. Patient reportedly takes 8 mg of Dilaudid p.o. PRN. Currently on IV dilaudid PRN. 5. HX OF PE: on eliquis 6. ANNA: CPAP at night
--- NOTE | 2017-12-01 19:55 | PDOC CONSULTATION ---
Consultation Consult Date: 12/01/17 Attending physician:: VIVIAN CRUZ Consult reason:: Chest pain History of Present Illness Admission Date/PCP: 11/30/17 21:31 Patient complains of: Chest pain History of Present Illness: CARMEN RAZO SR is a 57 year old male with medical history of tachybrady arrhythmia, SVT, A. fib, DVT, on high dose of Dilaudid p.o., who comes to the emergency department complaining of chest pain for the last 2 days. Describes the pain in the center of his chest that has been persistent, worsening with movement and exertion, radiated across the chest, overnight the pain improved but came back the next day. Refers up to 10/10 intensity, like a band crossing his chest, associated with dizziness, nausea and a little shortness of breath. Tells me that he had chest pains in the past but nothing like this. Tells me that he has usually normal exertional tolerance with minimal limitation. Follows with cardiology Dr. Panda and Amira in [place]. Patient was transferred from our facility to [place] on March last year for Tachybrady syndrome, patient was had multiple test, no intervention was done. tells me that recently his Ranexa and digoxin has been stopped, his metoprolol has been decreased to 100 mg a day and he was started on flecainide. Patient had a false positive stress test in 2015 followed by a normal cardiac catheterization. He also has orthostatic hypotension not on Midodrine. Chronically on Eliquis for a history of PE 2 sets of troponins negative, Patient seen while still in the ER. He has rather has constant chest pain yet cardiac enzymes has been negative. He had a normal cardiac cath about 2 years in 2016 in [place]. So far all cardiac enzymes has been negative. Past Medical History Cardiac Medical History: Reports: Atrial Fibrillation - Paroxysmal, DVT, Hyperlipidema, Hypertension, Pulmonary Embolism, Other - SVT, tachybrady arrhythmia, orthostatic hypotension, obstructive sleep apne Denies: Myocardial Infarction Pulmonary Medical History: Reports: Chronic Obstructive Pulmonary Disease (COPD) Denies: Asthma, Tuberculosis Neurological Medical History: Denies: Seizures Endocrine Medical History: Reports: Diabetes Mellitus Type 2 GI Medical History: Reports: Gastroesophageal Reflux Disease, Other - Chronic abdominal pain follow surgery for pancreatic cyst complicated with Denies: Hepatitis, Hiatal Hernia Musculoskeltal Medical History: Reports: Other Psychiatric Medical History: Reports: Depression - anxiety Hematology: Denies: Anemia, Sickle Cell Disease Past Surgical History Past Surgical History: Reports: Cholecystectomy, Orthopedic Surgery - Right femur, right knee, Other - Cardiac catheterization and cardioversion per patient. Denies: Pacemaker Social History Information Source: Patient Lives with: Spouse/Significant other Smoking Status: Former Smoker Number of Years Smokin Frequency of Alcohol Use: None Hx Recreational Drug Use: No Drugs: None Hx Prescription Drug Abuse: No - Advance Directive Resuscitation Status: Full Code Surrogate healthcare decision maker:: Patient's is the surrogate decision-maker Family History Family History: CAD Parental Family History Reviewed: Yes Children Family History Reviewed: Yes Sibling(s) Family History Reviewed.: Yes Medication/Allergy Home Medications: Apixaban [Eliquis 5 mg Tablet] 5 mg PO BID 04/01/17 Cyanocobalamin (Vitamin B-12) [Vitamin B-12 1000 Mcg Tablet] 1,000 mcg PO DAILY 04/01/17 Cyclosporine 0.05% Oph Emulsio [Restasis 0.05% Opthalmic Droperette] 1 drop BTH_ EYE DAILY 04/01/17 Difluprednate [Durezol] 1 drop OS DAILY 04/01/17 Duloxetine HCl [Cymbalta] 60 mg PO Q12 04/01/17 Esomeprazole Magnesium [Nexium] 40 mg PO BID 04/01/17 Fluticasone Propionate [Flonase Nasal Petros 50 Mcg/Petros 16 gm] 2 sprays NAREB DAILY 04/01/17 Hydromorphone HCl [Dilaudid] 1 - 2 tab PO DAILYP PRN 04/01/17 Metformin HCl [Glucophage 500 mg Tablet] 500 mg PO BIDACBS 04/01/17 Metoprolol Succinate [Toprol XL 200 mg Tablet] 100 mg PO DAILY 04/01/17 Valacyclovir HCl [Valtrex 500 Mg Tablet] 500 mg PO DAILY 04/01/17 Cholecalciferol (Vitamin D3) [Vitamin D3 5000 unit Capsule] 5,000 unit PO DAILY 12/01/17 Flecainide Acetate [Tambocor 100 Mg Tablet] 100 mg PO BID 12/01/17 Gabapentin Enacarbil [Horizant] 1,200 mg PO QHS 12/01/17 Gabapentin Enacarbil [Horizant] 600 mg PO DAILY 12/01/17 Red Yeast Rice 1,200 mg PO BID 12/01/17 Allergies/Adverse Reactions: ketorolac tromethamine [From Toradol] Allergy (Unknown, Verified 12/01/17 00:06) promethazine HCl [From Phenergan] Allergy (Unknown, Verified 12/01/17 00:06) aspirin [Aspirin] Allergy (Verified 12/27/16 22:34) Hives Review of Systems Review of Systems: Please see history of present illness and past medical history as wall. Constitutional: No fever or chills reported. Head : No recent chronic headaches, recent head injury. Eyes: No recent eye pain, diplopia, redness, discharge, acute visual changes. Ears: No recent chronic ear pain, acute hearing loss, ear discharge. Oral cavity: No recent ulcerations, bleeding, oral cavity discomfort. Neck: No recent acute neck pain reported. Hematologic: No recent easy bruising or bleeding. Lymphatic: No recent lymph node enlargement reported. Cardiovascular system review: See history of present illness. Respiratory system review: No hemoptysis or blood clots in the lungs reported. Mild Shortness of breath on exertion Gastrointestinal system review: Negative for any recent acute hematemesis, melena. Describes history of cholecystectomy Genitourinary system review: No recent acute or chronic hematuria, flank pain, UTI etc. reported. Skin system review: Negative for any recent abnormal bruising, no rash, no pruritus reported. Neurologic: No prior history of strokes, mini strokes, seizure disorder. Psychologic: No history of major psychosis or major depression reported. Musculoskeletal: Minor aches and pains reported. No acute joint swelling reported. Endocrine: No recent polyuria, polydipsia, recent heat or cold intolerance. Physical Exam Vital Signs: Temp Pulse Resp BP Pulse Ox 98.2 F 95 20 112/83 95 12/01/17 16:32 12/01/17 14:50 12/01/17 16:01 12/01/17 18:09 12/01/17 18:09 Intake & Output 11/30/17 12/01/17 12/02/17 06:59 06:59 06:59 Output Total 625 1550 Balance -625 -1550 Exam: GENERAL: well-nourished and in no acute distress. Alert and oriented x3 HEAD: Atraumatic, normocephalic. EYES: Pupils equal round and reactive to light, extraocular movements intact, sclera anicteric, conjunctiva are normal. ENT: TMs normal, nares patent, oropharynx clear without exudates. Moist mucous membranes. No oral ulcerations or bleeding gums noted NECK: supple without lymphadenopathy. Trachea is central. No cervical or axillary lymphadenopathy noted. Carotids are 2+, JVD WNL LUNGS: Respiration seems nonlabored, no significant accessory muscle action noted. Breath sounds clear to auscultation bilaterally and equal noted. No wheezes rales or rhonchi noted. No significant dullness noted on percussion. CHEST: Palpation of the chest wall shows no significant chest wall tenderness. HEART: [place] [employer]ING [employer]GER, No PSH, 1/6 CHI[place]ITA aortic area, 1/6 moon systolic murmur mitral area, no rubs, no gallops. ABDOMEN: Soft, slight epigastric tenderness appreciated, normoactive bowel sounds. No guarding, no rebound. No rigidity noted . No masses appreciated. EXTREMITIES: Pedal pulses are 1-2+, no calf tenderness noted. No clubbing or cyanosis. negative pedal edema noted NEUROLOGICAL: Focused neurological exam showed no significant neurologic deficit. Normal speech, no focal weakness appreciated. PSYCH: Normal mood, normal affect. Judgment and insight within normal limits. SKIN: No significant ecchymosis, skin is noted to be warm. MUSCULOSKELETAL EXAM: No significant acute joint swelling noted. Results Laboratory Results: 11/30/17 12/01/17 12/01/17 22:45 04:35 12:54 Troponin I < 0.012 < 0.012 < 0.012 12/01/17 18:47 Troponin I < 0.012 EKG Comments: Shows sinus rhythm, no acute ST-T wave changes are noted Impressions: Chest X-Ray 11/30/17 17:25 IMPRESSION: NO ACUTE RADIOGRAPHIC FINDING IN THE CHEST. Assessment & Plan - Diagnosis (1) Chest pain Qualifiers: Chest pain type: unspecified Qualified Code(s): R07.9 - Chest pain, unspecified Is this a current diagnosis for this admission?: Yes (2) History of pulmonary embolism Is this a current diagnosis for this admission?: Yes (3) Shortness of breath Is this a current diagnosis for this admission?: Yes (4) COPD (chronic obstructive pulmonary disease) Qualifiers: COPD type: unspecified COPD Qualified Code(s): J44.9 - Chronic obstructive pulmonary disease, unspecified Is this a current diagnosis for this admission?: Yes (5) Diabetes Qualifiers: Diabetes mellitus type: type 2 Diabetes mellitus snf insulin use: unspecified snf insulin use status Diabetes mellitus complication status : with unspecified complications Qualified Code(s): E11.8 - Type 2 diabetes mellitus with unspecified complications Is this a current diagnosis for this admission?: Yes (6) Obesity Qualifiers: Obesity type: unspecified obesity type Body mass index: BMI 31.0-31.9 Is this a current diagnosis for this admission?: Yes (7) Paroxysmal atrial fibrillation Is this a current diagnosis for this admission?: Yes (8) ANNA (obstructive sleep apnea) Is this a current diagnosis for this admission?: Yes - Notes Notes: Chest pain: So far EKGs and cardiac enzymes has been completely negative. Patient rather has constant chest pain. If this was cardiac in etiology would have expected cardiac enzymes especially troponin I to be suggestive. At this point treat empirically for distal esophagitis. If patient continues with chest pain will recommend obtaining a CT scan of the chest to rule out other causes of chest pain especially recurrent pulmonary embolism since patient has a history of this. History of pulmonary embolism: Possibly may have recurrent PE. Recommend a repeat CT in the morning to rule out pulmonary embolism. Dyspnea: Combination of reasons. Again will recommend CT angiogram. COPD: Currently stable. History of paroxysmal atrial fibrillation: Patient will benefit from weight loss and continuing treatment of sleep apnea. Obstructive sleep apnea: Currently is stable. Patient advised on nightly CPAP use. - Time Time Spent: 30 to 50 Minutes - CODE STATUS was discussed, patient remains full code. Surrogate decision-maker unchanged. Multiple medical problems were addressed. More than 50% of the time spent coordinating care, discussing management plans with involved caregivers. Management plans discussed with involved personnels. Medical decision making was of moderate to high complexity , patient's has multiple comorbidities. Medications reviewed and adjusted accordingly: Yes
[2017-12-01] MEDS: GABAPENTIN 400 MG CAPSULE PO SCH (22:20)
[2017-12-02] MEDS: HYDROMORPHONE HCL INJ/PF 2 MG/ML AMPULE IV PRN ×6 (02:29→23:04)
[2017-12-02] MEDS: LIDOCAINE 2% VISCOUS SOLN 20 ML UDCUP PO SCH ×4 (03:53→18:08)
[2017-12-02] MEDS: MAG HYDROX/AL HYDROX/SIMETH SUSP 30 ML UDCUP PO SCH ×4 (03:53→18:05)
[2017-12-02] MEDS: PANTOPRAZOLE SODIUM 40 MG VIAL IV SCH ×2 (05:21→18:59)
[2017-12-02 07:05] LABS: CHOLESTEROL 172.43 mg/dL (0-200); TRIGLYCERIDES 210 mg/dL (<150)
[2017-12-02 07:16] LABS: DIRECT LDL 98 mg/dL (<100)
[2017-12-02] MEDS: CYANOCOBALAMIN (VITAMIN B-12) 1,000 MCG TABLET PO SCH (10:44)
[2017-12-02] MEDS: FLUTICASONE NASAL SPRAY 50 MCG/SPRY 120 SPRAY/16 GM NAREB SCH (10:44)
[2017-12-02] MEDS: GABAPENTIN 300 MG CAPSULE PO SCH (10:45)
[2017-12-02] MEDS: CALCIUM CARBONATE 500 MG TAB.CHEW PO SCH ×4 (10:45→21:34)
[2017-12-02] MEDS: FLECAINIDE ACETATE 100 MG TABLET PO SCH ×2 (10:45→22:27)
[2017-12-02] MEDS: METOPROLOL SUCCINATE 50 MG TAB.SR.24H PO SCH (10:46)
[2017-12-02] MEDS: DULOXETINE HCL 30 MG CAPSULE.DR PO SCH ×2 (10:47→18:58)
[2017-12-02] MEDS: NITROGLYCERIN 0.4 MG/TAB 25 TAB/BOTTLE SL PRN ×3 (13:28→13:47)
[2017-12-02] MEDS: CYCLOSPORINE 0.05% OPH EMULSIO 0.4 ML DROPERETTE OD SCH ×2 (13:28→22:28)
[2017-12-02] MEDS: APIXABAN 5 MG TABLET PO SCH ×2 (13:38→18:58)
[2017-12-02] MEDS ORDERED: REGADENOSON INJ 0.4 MG/5 ML DISP.SYRIN IV ONE (13:48)
[2017-12-02] MEDS: VALACYCLOVIR HCL 500 MG TABLET PO SCH (13:48)
--- NOTE | 2017-12-02 17:30 | PDOC PROGRESS REPORT ---
Subjective Progress Note for:: 12/02/17 Subjective:: CARMEN RAZO SR is a 57 year old male with medical history of tachybrady arrhythmia, SVT, A. fib, DVT, hiatal hernia, pacreatitis, rodrigues's esophagus. He presented to the emergency department on 11/30/2017 for midsternal chest pain. EKG and cardiac enzymes have been normal. Patient remains in the hospital because he continues to have chest pain and is unable to complete his stress test. Patient seen this morning on rounds, following part 1 of his stress test. The patient is comfortably resting in bed on room air. The patient endorses intermittent episodes of midsternal chest pressure, exacerbated with activity. The patient states that his chest pain became worse towards the end of his stress test. Upon assessment, lungs are clear to auscultation. S1S2. Chest pain is not reproducible with palpation. Patient states he has a significant history of reflux, and the current chest pain he is experiencing is 'different than acid reflux.' EKG and telemetry tracings all continue to show NSR. Serial cardiac enzymes have been negative. Instructed nursing staff to administer SL Nitroglycerin for patient's chest pain. Plan to discuss patient's symptomology with manager winter, Dr. Max. Reason For Visit: CHEST PAIN Physical Exam Vital Signs: Temp Pulse Resp BP Pulse Ox 98.3 F 90 15 123/71 96 12/02/17 12:00 12/02/17 12:00 12/02/17 12:00 12/02/17 12:00 12/02/17 12:00 Intake & Output 12/01/17 12/02/17 12/03/17 06:59 06:59 06:59 Output Total 625 1550 Balance -625 -1550 Weight 108.2 kg General appearance: PRESENT: morbidly obese Eye exam: PRESENT: conjunctiva pink, PERRLA Mouth exam: PRESENT: moist, tongue midline Neck exam: PRESENT: full ROM. ABSENT: carotid bruit, JVD Respiratory exam: PRESENT: clear to auscultation neo, symmetrical, unlabored Cardiovascular exam: PRESENT: RRR, +S1, +S2 Pulses: PRESENT: normal radial pulses, normal dorsalis pedis pul GI/Abdominal exam: PRESENT: normal bowel sounds, soft. ABSENT: tenderness Rectal exam: PRESENT: deferred. ABSENT: tenderness Extremities exam: PRESENT: full ROM. ABSENT: joint swelling, pedal edema Musculoskeletal exam: PRESENT: ambulatory, full ROM Neurological exam: PRESENT: alert, awake, oriented to person, oriented to place , oriented to time, oriented to situation Psychiatric exam: PRESENT: appropriate affect Skin exam: PRESENT: dry, intact, normal color Results Laboratory Results: 12/02/17 06:33 Magnesium 1.8 Triglycerides 210 H Cholesterol 172.43 LDL Cholesterol Direct 98 VLDL Cholesterol 42.0 H HDL Cholesterol 47 11/30/17 12/01/17 12/01/17 22:45 04:35 12:54 Troponin I < 0.012 < 0.012 < 0.012 12/01/17 18:47 Troponin I < 0.012 Impressions: Chest X-Ray 11/30/17 17:25 IMPRESSION: NO ACUTE RADIOGRAPHIC FINDING IN THE CHEST. Status: Imported from PACS Assessment & Plan - Diagnosis (1) Chest pain Qualifiers: Chest pain type: unspecified Qualified Code(s): R07.9 - Chest pain, unspecified Is this a current diagnosis for this admission?: Yes Plan: Unclear etiology at this time EKG shows NSR, no evidence of infarction or ischemia. Serial troponin<0.012 no longer trending. SL Nitroglycerin tablets PRN for chest pain Echocardiogram completed, results pending. CTA Chest to R/O PE or other pathology to explain persistent chest pain Stress test (part 1) completed, plan to complete part 2 tomorrow Possible atypical causes for chest pain: Reflux -ordered twice daily lansoprazole and scheduled GI cocktail. Anxiety -as needed Xanax. Muscle pain - PRN tylenol and flexeril (2) ANNA (obstructive sleep apnea) Is this a current diagnosis for this admission?: Yes Plan: Endorses history of ANNA Noncompliant with CPAP Ordered CPAP nightly, patient willing to attempt (3) Chronic pain following surgery or procedure Is this a current diagnosis for this admission?: Yes Plan: Following a number of abdominal surgeries related to pancreatitis Patient reportedly takes 8 mg of Dilaudid p.o. as needed He reports his usage is episodic, he only takes narcotics when needed Patient states there are days ago by when he does not take the medication at all Continue IV Dilaudid as needed (4) Diabetes Qualifiers: Diabetes mellitus type: type 2 Diabetes mellitus fci insulin use: unspecified fci insulin use status Diabetes mellitus complication status : with unspecified complications Qualified Code(s): E11.8 - Type 2 diabetes mellitus with unspecified complications Is this a current diagnosis for this admission?: Yes Plan: Patient endorses history of diabetes. Hgb A1c 8.5% Before meals at bedtime Accu-Cheks Humalog sliding scale (5) Paroxysmal atrial fibrillation Is this a current diagnosis for this admission?: Yes Plan: Patient endorses history of paroxysmal A. fib Currently in NSR Continue home dose of Eliquis and flecainide - Time Time Spent with patient: 15-24 minutes Medications reviewed and adjusted accordingly: Yes Anticipated discharge: Home - Inpatient Certification Based on my medical assessment, after consideration of the patient's comorbidities, presenting symptoms, or acuity I expect that the services needed warrant INPATIENT care.: Yes I certify that my determination is in accordance with my understanding of Medicare's requirements for reasonable and necessary INPATIENT services [42 CFR 412.3e].: Yes Medical Necessity: Risk of Complication if Not Cared For in Hospital - Plan Summary Plan Summary: INITIATE IMDUR. IF CHEST PAIN FREE, COMPLETE PART 2 OF STRESS TEST TOMORROW.
--- NOTE | 2017-12-02 18:52 | XCELERA REPORT ---
[address] [address] Transthoracic Echocardiogram Report Name: CARMEN RAZO SR Age: 57 yrs Gender: Male : 1960 Patient Status: Inpatient Patient Location: [address] [place] [address] Study Date: 12/02/2017 10:05 AM Procedure: A complete two-dimensional transthoracic echocardiogram was performed (2D, M-mode, spectral and color flow Doppler). The study was technically limited with all images being suboptimal in quality. Reason For Study: CP Ordering Physician: LALI LAUGHLIN Performed By: Jeanine Chand Interpretation Summary The left ventricular ejection fraction is normal. There is mild concentric left ventricular hypertrophy. The left ventricle is grossly normal size. LV diastolic function could not be adequately assessed. Not all wall segments were well visualized. The right ventricle is not well visualized secondary to technical limitations The left atrium is mildly dilated. Right atrium not well visualized secondary to technical limitations There is no mitral regurgitation noted. There is no mitral valve stenosis. No aortic regurgitation is present. There is no aortic valve stenosis There is a trace or physiologic amount of tricuspid regurgitation Tricuspid regurgitation jet envelope not well defined to measure RV systolic pressure accurately. The aortic root is not well visualized. The inferior vena cava was not well visualized There is no pericardial effusion. MMode/2D Measurements & Calculations RVDd: 4.3 cm LVIDd: 5.4 cmFS: 36.7 % Ao root diam: 3.3 cm IVSd: 1.1 cm LVIDs: 3.4 cmEDV(Teich): 140.5 ml Ao root area: 8.8 cm2 LVPWd: 1.2 cmESV(Teich): 47.8 ml EF(Teich): 66.0 % LVOT diam: 1.7 cm LVOT area: 2.3 cm2 Doppler Measurements & Calculations MV E max mary: MV dec slope: Ao V2 max: LV V1 max P.3 cm/sec 97.7 cm/sec 3.3 mmHg MV A max mary: 189.8 cm/sec2 Ao max PG: LV V1 max: 70.8 cm/sec MV dec time: 0.22 sec3.8 mmHg 90.2 cm/sec MV E/A: 0.60 MISSY(V,D): 2.1 cm2 PA V2 max: TR max mary: 97.8 cm/sec 221.1 cm/sec PA max P.8 mmHgTR max P.6 mmHg Left Ventricle The left ventricle is grossly normal size. There is mild concentric left ventricular hypertrophy. The left ventricular ejection fraction is normal. LV diastolic function could not be adequately assessed. Not all wall segments were well visualized. Right Ventricle The right ventricle is not well visualized secondary to technical limitations. Atria Right atrium not well visualized secondary to technical limitations. The left atrium is mildly dilated. Mitral Valve The mitral valve is not well visualized. There is no mitral valve stenosis. There is no mitral regurgitation noted. Aortic Valve The aortic valve is not well visualized secondary to technical limitations. There is no aortic valve stenosis. No aortic regurgitation is present. Tricuspid Valve The tricuspid valve is not well visualized secondary to technical limitations. There is no tricuspid stenosis. There is a trace or physiologic amount of tricuspid regurgitation. Tricuspid regurgitation jet envelope not well defined to measure RV systolic pressure accurately. Pulmonic Valve The pulmonic valve is not well visualized. Great Vessels The aortic root is not well visualized. The inferior vena cava was not well visualized. Effusions There is no pericardial effusion. : LALI LAUGHLIN > Lali Laughlin
[2017-12-02] MEDS: ISOSORBIDE MONONITRATE 60 MG TAB.ER.24H PO SCH (18:58)
--- NOTE | 2017-12-02 20:02 | PDOC PROGRESS REPORT ---
Subjective Progress Note for:: 12/02/17 Subjective:: Patient overall improved but still having some intermittent chest pain which seems to be relieved by sublingual nitroglycerin. Patient completed stress part of the 2D protocol today without any complications. No EKG changes were noted. Reason For Visit: CHEST PAIN Physical Exam Vital Signs: Temp Pulse Resp BP Pulse Ox 98.3 F 74 15 123/71 96 12/02/17 12:00 12/02/17 14:00 12/02/17 12:00 12/02/17 12:00 12/02/17 12:00 Intake & Output 12/01/17 12/02/17 12/03/17 06:59 06:59 06:59 Intake Total 750 Output Total 625 1550 250 Balance -625 -1550 500 Weight 108.2 kg Exam: GENERAL: well-nourished and in no acute distress. Alert and oriented x3 HEAD: Atraumatic, normocephalic. EYES: Pupils equal round and reactive to light, extraocular movements intact, sclera anicteric, conjunctiva are normal. ENT: TMs normal, nares patent, oropharynx clear without exudates. Moist mucous membranes. No oral ulcerations or bleeding gums noted NECK: supple without lymphadenopathy. Trachea is central. No cervical or axillary lymphadenopathy noted. Carotids are 2+, JVD WNL LUNGS: Respiration seems nonlabored, no significant accessory muscle action noted. Breath sounds clear to auscultation bilaterally and equal noted. No wheezes rales or rhonchi noted. No significant dullness noted on percussion. CHEST: Palpation of the chest wall shows no significant chest wall tenderness. 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 ABDOMEN: Soft, no significant tenderness appreciated, normoactive bowel sounds. No guarding, no rebound. No rigidity noted . No masses appreciated. EXTREMITIES: Pedal pulses are 1-2+, no calf tenderness noted. No clubbing or cyanosis. negative pedal edema noted NEUROLOGICAL: Focused neurological exam showed no significant neurologic deficit. Normal speech, no focal weakness appreciated. PSYCH: Normal mood, normal affect. Judgment and insight within normal limits. SKIN: No significant ecchymosis, skin is noted to be warm. MUSCULOSKELETAL EXAM: No significant acute joint swelling noted. Results Laboratory Results: 12/02/17 06:33 Magnesium 1.8 Triglycerides 210 H Cholesterol 172.43 LDL Cholesterol Direct 98 VLDL Cholesterol 42.0 H HDL Cholesterol 47 11/30/17 12/01/17 12/01/17 22:45 04:35 12:54 Troponin I < 0.012 < 0.012 < 0.012 12/01/17 18:47 Troponin I < 0.012 EKG Comments: Telemetry strip shows sinus rhythm without any sustained tachycardia or bradycardia Impressions: Chest X-Ray 11/30/17 17:25 IMPRESSION: NO ACUTE RADIOGRAPHIC FINDING IN THE CHEST. Assessment & Plan - Diagnosis (1) Chest pain Qualifiers: Chest pain type: unspecified Qualified Code(s): R07.9 - Chest pain, unspecified Is this a current diagnosis for this admission?: Yes (2) History of pulmonary embolism Is this a current diagnosis for this admission?: Yes (3) Shortness of breath Is this a current diagnosis for this admission?: Yes (4) COPD (chronic obstructive pulmonary disease) Qualifiers: COPD type: unspecified COPD Qualified Code(s): J44.9 - Chronic obstructive pulmonary disease, unspecified Is this a current diagnosis for this admission?: Yes (5) Diabetes Qualifiers: Diabetes mellitus type: type 2 Diabetes mellitus fci insulin use: unspecified fci insulin use status Diabetes mellitus complication status : with unspecified complications Qualified Code(s): E11.8 - Type 2 diabetes mellitus with unspecified complications Is this a current diagnosis for this admission?: Yes (6) Obesity Qualifiers: Obesity type: unspecified obesity type Body mass index: BMI 31.0-31.9 Is this a current diagnosis for this admission?: Yes (7) Paroxysmal atrial fibrillation Is this a current diagnosis for this admission?: Yes (8) ANNA (obstructive sleep apnea) Is this a current diagnosis for this admission?: Yes - Notes Notes: Chest pain: Feel most likely noncardiac possibly esophageal related. Heart cath 2 years ago was completely negative. Cardiac enzymes and EKG has been completely negative. Would recommend obtaining a CT scan of the chest to rule out any other causes of chest pain. This was discussed with the hospitalist. Agree that we could try him on long-acting nitrates since nitrates seems to resolve his chest pain. Patient completed his stress imaging with pharmacologic stress agent today. No complications noted. Imaging interpretation pending. Also recommend GI consultation for endoscopy, acid infusion test etc Patient has other ongoing chronic problems but these are under control and being well managed by hospitalist. - Time Time with patient: Greater than 35 minutes - Patient was seen multiple times today. Differential diagnosis of chest pain was discussed in detail with the patient, his and also hospitalist.
[2017-12-02] MEDS: GABAPENTIN 400 MG CAPSULE PO SCH (22:27)
[2017-12-03] MEDS: MAG HYDROX/AL HYDROX/SIMETH SUSP 30 ML UDCUP PO SCH ×4 (02:14→19:49)
[2017-12-03] MEDS: LIDOCAINE 2% VISCOUS SOLN 20 ML UDCUP PO SCH ×4 (02:14→19:51)
[2017-12-03] MEDS: HYDROMORPHONE HCL INJ/PF 2 MG/ML AMPULE IV PRN ×5 (03:20→20:25)
[2017-12-03] MEDS: PANTOPRAZOLE SODIUM 40 MG VIAL IV SCH ×2 (05:25→19:57)
[2017-12-03 08:30] LABS: HEMATOCRIT 38.9 % (37.9-51.0); MEAN CORPUSCULAR HEMOGLOBIN 30.9 pg (27.0-33.4); MEAN CORPUSCULAR HGB CONC 33.8 g/dL (32.0-36.0); MEAN CORPUSCULAR VOLUME 92 fl (80-97); PLATELET COUNT 183 10^3/uL (150-450); RED BLOOD COUNT 4.26 10^6/uL (4.35-5.55); RED CELL DISTRIBUTION WIDTH 13.4 % (11.5-14.0)
[2017-12-03 08:31] LABS: HEMOGLOBIN 13.2 g/dL (13.5-17.0)
[2017-12-03 08:52] LABS: ALANINE AMINOTRANSFERASE 52 U/L (21-72); ALBUMIN 3.5 g/dL (3.5-5.0); ALKALINE PHOSPHATASE 84 U/L (38-126); ANION GAP 11 (5-19); ASPARTATE AMINO TRANSFERASE 33 U/L (17-59); BILIRUBIN,DIRECT 0.3 mg/dL (0.0-0.4); BILIRUBIN,TOTAL 0.5 mg/dL (0.2-1.3); BLOOD UREA NITROGEN 19 mg/dL (7-20); CALCIUM 8.9 mg/dL (8.4-10.2); CARBON DIOXIDE 27 mmol/L (22-30); CHLORIDE 102 mmol/L (98-107); GLUCOSE 167 mg/dL (75-110); POTASSIUM 4.2 mmol/L (3.6-5.0); SODIUM 140.2 mmol/L (137-145); TOTAL PROTEIN 6.5 g/dL (6.3-8.2)
[2017-12-03] MEDS: CALCIUM CARBONATE 500 MG TAB.CHEW PO SCH ×4 (10:57→21:52)
[2017-12-03] MEDS: FLUTICASONE NASAL SPRAY 50 MCG/SPRY 120 SPRAY/16 GM NAREB SCH (11:47)
[2017-12-03] MEDS: CYANOCOBALAMIN (VITAMIN B-12) 1,000 MCG TABLET PO SCH (11:48)
[2017-12-03] MEDS: GABAPENTIN 300 MG CAPSULE PO SCH (11:48)
[2017-12-03] MEDS: VALACYCLOVIR HCL 500 MG TABLET PO SCH (11:48)
[2017-12-03] MEDS: FLECAINIDE ACETATE 100 MG TABLET PO SCH ×2 (11:48→19:57)
[2017-12-03] MEDS: APIXABAN 5 MG TABLET PO SCH ×2 (11:48→19:57)
[2017-12-03] MEDS: CYCLOSPORINE 0.05% OPH EMULSIO 0.4 ML DROPERETTE OD SCH ×2 (11:48→21:50)
[2017-12-03] MEDS: DULOXETINE HCL 30 MG CAPSULE.DR PO SCH ×2 (11:49→19:56)
[2017-12-03] MEDS: METOPROLOL SUCCINATE 50 MG TAB.SR.24H PO SCH (11:49)
[2017-12-03] MEDS: ISOSORBIDE MONONITRATE 60 MG TAB.ER.24H PO SCH (11:49)
--- NOTE | 2017-12-03 18:59 | DRAGON STRESS TEST REPORT ---
INTRAVENOUS LEXISCAN CARDIOLITE STRESS TEST USING SINGLE PHOTON EMMISION COMPUTERIZED TOMOGRAPHIC. DATE OF PROCEDURE: December 02 stress imaging and December 03 rest imaging, 2017, INDICATION : Chest pain CARDIAC RISK FACTORS: Family history of CAD RESTING EKG: Sinus rhythm, in right bundle branch block pattern with secondary ST-T wave changes STRESS EKG: No significant ST segment changes noted with LexiScan bolus REASON FOR TERMINATION: Protocol. PROCEDURE REPORT: Baseline heart rate 84 beats per minute with blood pressure of 133/77. Patient had no significant complaints. Patient was bolused with Lexiscan 0.4 mg intravenously followed by saline bolus. Heart rate at 2 minutes post bolus 105 with a blood pressure of 123/80. 3 minutes post bolus heart rate 99 with blood pressure of 116/78. No significant EKG changes were noted. Patient had no significant complaints during the procedure or postprocedure. CONCLUSIONS: Normal EKG and hemodynamic response to IV LexiScan. NUCLEAR DATA: For rest imaging on day 2, at rest the patient was given 43.2 millicuries of technetium 99 sestamibi injected intravenously. As per protocol rest gated SPECT images were obtained. On day of stress test, the patient was given intravenous LexiScan at a dose of 0.4 mg in 5 mL intravenously, followed by flush with normal saline. Subsequently the stress dose of 40.6 millicuries of technetium 99 sestamibi was injected intravenously. As per protocol stress gated images were obtained. NUCLEAR INTERPRETATION: Both raw and processed data were used for interpretation. Visual, qualitative, computer-generated quantitative data was used. Nuclear imaging was markedly suboptimal. Also there was no attenuation correction. Also notes motion correction. Motion artifact and soft tissue attenuations were noted. Increased visceral uptake was noted. Mild decreased uptake noted in the mid anterior wall consistent with probable mild ischemia, No definitive areas of fixed perfusion defect or scars noted. EKG gated imaging showed LV EF at 57 %, rest and stress gated EF similar visually, overall quality of EKG gated imaging and gating was also suboptimal. T. I D. ratio was 0.93. Lung heart ratio noted to be within normal limits 0.37. No significant extracardiac and abnormal radiotracer activities were noted. RV free wall uptake was noted to be WNL. IMPRESSION: Also refer to comments under nuclear interpretation. Also test results needs to be interpreted in the context of pretest probability. Please note that quality of nuclear imaging was suboptimal and there was no attenuation correction available. 1. Probable mild mid anterior wall ischemia. 2. There is no definitive scintigraphic evidence of myocardial infarction/scar. 3. EKG gated imaging shows left ventricular ejection fraction of approx. 57 %. 4. Clinical correlation requested as occasionally worse ischemia or balanced ischemia could be missed. In approximately 10% of the cases Lexiscan may not cause adequate vasodilatory stress. RECOMMENDATIONS: Aggressive risk factor modification and medical management. Further evaluation may be needed if continued symptoms or other high risk indicators are noted on clinical evaluation. Close cardiology follow-up is also recommended. Clinical correlation with echocardiogram derived ejection fraction. Inability to exercise by itself can lead to increased cardiovascular event risks. Consider cardiology consultation and or follow-up if clinically indicated. I am available for cardiology evaluation and consultation if requested by the primary clinician, unless patient already has a epidemiology internship. Dr. Carli Max. MRCP Board certified in cardiology and sleep medicine. Board certified in nuclear cardiology, adult echocardiography. SAIDA
[2017-12-03 20:10] LABS: NT PRO BNP 38 pg/mL (5-900)
--- NOTE | 2017-12-03 20:14 | PDOC TRANSFER SUMMARY ---
General Admission Date/PCP: 12/03/17 15:18 Admission Date: 11/30/17 Transfer Date: 12/03/17 Accepting Facility: [facility] Accepting Physician: DR. BARROW (WINDOWS SUPPORT ENGINEER) FOR DR. MALONEY ( HOSPITALIST) Resuscitation Status: Full Code - Transfer Diagnosis (1) Chest pain Is this a current diagnosis for this admission?: Yes (2) ANNA (obstructive sleep apnea) Is this a current diagnosis for this admission?: Yes (3) Chronic pain following surgery or procedure Is this a current diagnosis for this admission?: Yes (4) Diabetes Is this a current diagnosis for this admission?: Yes (5) Paroxysmal atrial fibrillation Is this a current diagnosis for this admission?: Yes - Transfer Medications Home Medications: Apixaban [Eliquis 5 mg Tablet] 5 mg PO BID 04/01/17 Cyanocobalamin (Vitamin B-12) [Vitamin B-12 1000 Mcg Tablet] 1,000 mcg PO DAILY 04/01/17 Cyclosporine 0.05% Oph Emulsio [Restasis 0.05% Opthalmic Droperette] 1 drop BTH_ EYE DAILY 04/01/17 Difluprednate [Durezol] 1 drop OS DAILY 04/01/17 Duloxetine HCl [Cymbalta] 60 mg PO Q12 04/01/17 Esomeprazole Magnesium [Nexium] 40 mg PO BID 04/01/17 Fluticasone Propionate [Flonase Nasal [place] 50 Mcg/[place] 16 gm] 2 sprays NAREB DAILY 04/01/17 Hydromorphone HCl [Dilaudid] 1 - 2 tab PO DAILYP PRN 04/01/17 Metformin HCl [Glucophage 500 mg Tablet] 500 mg PO BIDACBS 04/01/17 Metoprolol Succinate [Toprol XL 200 mg Tablet] 100 mg PO DAILY 04/01/17 Valacyclovir HCl [Valtrex 500 Mg Tablet] 500 mg PO DAILY 04/01/17 Cholecalciferol (Vitamin D3) [Vitamin D3 5000 unit Capsule] 5,000 unit PO DAILY 12/01/17 Flecainide Acetate [Tambocor 100 Mg Tablet] 100 mg PO BID 12/01/17 Gabapentin Enacarbil [Horizant] 1,200 mg PO QHS 12/01/17 Gabapentin Enacarbil [Horizant] 600 mg PO DAILY 12/01/17 Red Yeast Rice 1,200 mg PO BID 12/01/17 Transfer Medications: Current Medications Acetaminophen (Tylenol 325 Mg Tablet) 650 mg PO Q4HP PRN PRN Reason: FOR PAIN OR TEMP Stop: 12/31/17 01:39 Al Hydrox/Mg Hydrox/Simethicone (Maalox Plus Susp 30 Udcup) 30 ml PO Q6 MELISSA Stop: 01/01/18 00:00 Last Admin: 12/03/17 19:49 Dose: Not Given Apixaban (Eliquis 5 Mg Tablet) 5 mg PO BID MELISSA Stop: 12/31/17 09:59 Last Admin: 12/03/17 11:48 Dose: 5 mg Calcium Carbonate (Tums Chewable 500 Mg Tab.Chew) 500 mg PO [facility] Stop: 12/31/17 16:59 Last Admin: 12/03/17 17:24 Dose: Not Given Cyanocobalamin (Vitamin B-12 1000 Mcg Tablet) 1,000 mcg PO DAILY MELISSA Stop: 12/31/17 09:59 Last Admin: 12/03/17 11:48 Dose: 1,000 mcg Cyclosporine (Restasis 0.05% Oph Emulsion Pf 0.4 Ml) 1 drop OD Q12 MELISSA Stop: 12/31/17 09:59 Last Admin: 12/03/17 11:48 Dose: 1 drop Dextrose (Dextrose Inj 50% Syringe (25 Gm/50 Ml)) 12.5 gm IV PRN PRN; Protocol PRN Reason: FOR BG 50-69 IN ALERT PATIENT Stop: 12/31/17 01:39 Dextrose (Dextrose Inj 50% Syringe (25 Gm/50 Ml)) 25 gm IV PRN PRN; Protocol PRN Reason: See Label Comments Stop: 12/31/17 01:39 Duloxetine HCl (Cymbalta 30 Mg Capsule.Dr) 60 mg PO BID [facility] Stop: 12/31/17 09:59 Last Admin: 12/03/17 11:49 Dose: 60 mg Flecainide Acetate (Tambocor 100 Mg Tablet) 100 mg PO BID [facility] Stop: 12/31/17 09:59 Last Admin: 12/03/17 11:48 Dose: 100 mg Fluticasone Propionate (Flonase Nasal [place] 50 Mcg/[place] 16 Gm) 1 spray NAREB DAILY [facility] Stop: 12/31/17 09:59 Last Admin: 12/03/17 11:47 Dose: 1 spr Gabapentin (Neurontin 300 Mg Capsule) 600 mg PO DAILY MELISSA Stop: 12/31/17 09:59 Last Admin: 12/03/17 11:48 Dose: 600 mg Gabapentin (Neurontin 400 Mg Capsule) 1,200 mg PO QHS MELISSA Stop: 12/31/17 21:59 Last Admin: 12/02/17 22:27 Dose: 1,200 mg Glucagon (Glucagen Inj 1 Mg Vial) 1 mg SUBCUT PRN PRN; Protocol PRN Reason: Evaluate for BG < 70 Stop: 12/31/17 01:39 Glucose (Glutose 40% Gel 15 Gm Tube) 15 gm PO PRN PRN; Protocol PRN Reason: For BG 50-69 in Alert Patient Stop: 12/31/17 01:39 Glucose (Glutose 40% Gel 15 Gm Tube) 30 gm PO PRN PRN; Protocol PRN Reason: FOR BG < 50 IN ALERT PATIENT Stop: 12/31/17 01:39 Hydromorphone HCl (Dilaudid Inj/Pf 2 Mg/Ml Ampule) 2 mg IV Q4HP PRN PRN Reason: FOR PAIN Stop: 12/08/17 08:56 Last Admin: 12/03/17 16:26 Dose: 2 mg Insulin Human Regular (Humulin R (Pyxis) Insulin 100 Unit/Ml 3ml) 0 - 12 unit SUBCUT Q6HP PRN; Protocol PRN Reason: PER PROTOCOL Stop: 12/31/17 01:56 Isosorbide Mononitrate (Imdur 60 Mg Tablet.Er) 60 mg PO DAILY [facility] Stop: 01/01/18 16:59 Last Admin: 12/03/17 11:49 Dose: 60 mg Lidocaine HCl (Xylocaine 2% Viscous Soln 20 Ml Udcup) 15 ml PO Q6 MELISSA Stop: 01/01/18 00:00 Last Admin: 12/03/17 19:51 Dose: Not Given Metoprolol Succinate (Toprol Xl 50 Mg Tab.Sr) 100 mg PO DAILY [facility] Stop: 12/31/17 09:59 Last Admin: 12/03/17 11:49 Dose: 100 mg Pantoprazole Sodium (Protonix Iv Inj 40 Mg Vial) 40 mg IV Q12A [facility] Stop: 12/04/17 17:59 Last Admin: 07/26/18 05:25 Dose: 40 mg Patient Own Medication (Difluprednate [Durezol]) 1 drop OS .DAILY [facility] Stop: 12/31/17 09:59 Sodium Chloride (Saline Flush 2.5 Ml Monoject Prefil Syrin) 2.5 ml IV Q8 MELISSA Stop: 12/31/17 05:59 Last Admin: 12/03/17 17:24 Dose: Not Given Valacyclovir HCl (Valtrex 500 Mg Tablet) 500 mg PO DAILY MELISSA Stop: 12/31/17 09:59 Last Admin: 12/03/17 11:48 Dose: 500 mg - Allergies Allergies/Adverse Reactions: ketorolac tromethamine [From Toradol] Allergy (Unknown, Verified 12/01/17 00:06) promethazine HCl [From Phenergan] Allergy (Unknown, Verified 12/01/17 00:06) aspirin [Aspirin] Allergy (Verified 12/27/16 22:34) Hives - Diet/Activity Discharge Diet: As Tolerated Hospital Course Hospital Course: 57 y.o. M admitted to [facility] for chest pain. PMH includes HTN, HLD, DM, ANNA, GERD , Kidd's esophagus, pancreatitis. The patient states he is experiencing midsternal chest tightness with associated shortness of breath and left upper extremity numbness, exacerbated with activity. Relief with rest. Unclear etiology at this time. EKG shows NSR, no evidence of infarction or ischemia. Serial troponin<0.012. Patient states he has experienced mild pain relief with sublingual nitroglycerin, but he never fully experiences chest pain relief. Stress test completed today, results inconclusive per business objects architect, Dr. Max. Echocardiogram completed, demonstrates normal LVEF, no other abnormal pathology. Multiple attempts at CTA Chest to R/O PE or other pathology, but several episodes of IV infiltration upon infusion of contrast dye. Patient does have a history of chronic abdominal pain following a number of abdominal surgeries related to pancreatitis. Patient reportedly takes 8 mg of Dilaudid p.o. as needed. He reports his usage as episodic, only takes narcotics when needed. The patient states there are days ago by when he does not take medication at all. While inpatient, he has been receiving IV Dilaudid as needed for pain. Atypical causes of chest pain have been addressed. Reflux treated with Maalox, viscous lidocaine and twice daily lansoprazole. Anxiety treated with as needed Xanax. Muscular chest pain treated with as needed Tylenol and Flexeril. Despite these alternative therapies, the patient continues to complain of chest pain. This patient is in need of a diagnostic cardiac catheterization prior to discharge home. This is beyond the capabilities of [facility]. Dr. Barraza of [facility] cardiology has graciously accepted this patient. ( Physical Exam Vital Signs: Temp Pulse Resp BP Pulse Ox 98.5 F 85 16 117/66 95 12/03/17 16:00 12/03/17 16:00 12/03/17 16:00 12/03/17 16:00 12/03/17 16:00 Results Impressions: Chest X-Ray 11/30/17 17:25 IMPRESSION: NO ACUTE RADIOGRAPHIC FINDING IN THE CHEST. Plan Discharge Plan: Transfer to [facility] for diagnostic cardiac catheterization. Time Spent: Less than 30 Minutes
[2017-12-03 20:18] LABS: TROPONIN I < 0.012 ng/mL
[2017-12-03 20:35] VITALS: BP 105/64
--- NOTE | 2017-12-03 20:35 | PDOC PROGRESS REPORT ---
Subjective Progress Note for:: 12/03/17 Subjective:: Patient underwent nuclear stress test, rest imaging today. He was down to have CT scan but due to IV access problem CT scan of the chest cannot be performed. Patient now wishes to be transferred to [facility]. 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 Patient overall improved but still having some intermittent chest pain which seems to be relieved by sublingual nitroglycerin. Patient completed stress part of the 2D protocol today without any complications. No EKG changes were noted. Reason For Visit: CHEST PAIN Physical Exam Vital Signs: Temp Pulse Resp BP Pulse Ox 98.5 F 85 16 117/66 95 12/03/17 16:00 12/03/17 16:00 12/03/17 16:00 12/03/17 16:00 12/03/17 16:00 Exam: GENERAL: well-nourished and in no acute distress. Alert and oriented x3 HEAD: Atraumatic, normocephalic. EYES: Pupils equal round and reactive to light, extraocular movements intact, sclera anicteric, conjunctiva are normal. ENT: TMs normal, nares patent, oropharynx clear without exudates. Moist mucous membranes. No oral ulcerations or bleeding gums noted NECK: supple without lymphadenopathy. Trachea is central. No cervical or axillary lymphadenopathy noted. Carotids are 2+, JVD WNL LUNGS: Respiration seems nonlabored, no significant accessory muscle action noted. Breath sounds clear to auscultation bilaterally and equal noted. No wheezes rales or rhonchi noted. No significant dullness noted on percussion. CHEST: Palpation of the chest wall shows no significant chest wall tenderness. 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 ABDOMEN: Soft, no significant tenderness appreciated, normoactive bowel sounds. No guarding, no rebound. No rigidity noted . No masses appreciated. EXTREMITIES: Pedal pulses are 1-2+, no calf tenderness noted. No clubbing or cyanosis. 1+ pedal edema noted NEUROLOGICAL: Focused neurological exam showed no significant neurologic deficit. Normal speech, no focal weakness appreciated. PSYCH: Normal mood, normal affect. Judgment and insight within normal limits. SKIN: No significant ecchymosis, skin is noted to be warm. MUSCULOSKELETAL EXAM: No significant acute joint swelling noted. Results Laboratory Results: 12/03/17 19:30 Troponin I < 0.012 NT-Pro-B Natriuret Pep 38 EKG Comments: Telemetry shows sinus rhythm without any sustained tachycardia or bradycardia. Impressions: Chest X-Ray 11/30/17 17:25 IMPRESSION: NO ACUTE RADIOGRAPHIC FINDING IN THE CHEST. Assessment & Plan - Diagnosis (1) Chest pain Qualifiers: Chest pain type: unspecified Qualified Code(s): R07.9 - Chest pain, unspecified Is this a current diagnosis for this admission?: Yes (2) History of pulmonary embolism Is this a current diagnosis for this admission?: Yes (3) Shortness of breath Is this a current diagnosis for this admission?: Yes (4) COPD (chronic obstructive pulmonary disease) Qualifiers: COPD type: unspecified COPD Qualified Code(s): J44.9 - Chronic obstructive pulmonary disease, unspecified Is this a current diagnosis for this admission?: Yes (5) Diabetes Qualifiers: Diabetes mellitus type: type 2 Diabetes mellitus hand molder meat insulin use: unspecified hand molder meat insulin use status Diabetes mellitus complication status : with unspecified complications Qualified Code(s): E11.8 - Type 2 diabetes mellitus with unspecified complications Is this a current diagnosis for this admission?: Yes (6) Obesity Qualifiers: Obesity type: unspecified obesity type Body mass index: BMI 31.0-31.9 Is this a current diagnosis for this admission?: Yes (7) Paroxysmal atrial fibrillation Is this a current diagnosis for this admission?: Yes (8) ANNA (obstructive sleep apnea) Is this a current diagnosis for this admission?: Yes - Notes Notes: Chest pain: Patient continues to have intermittent chest pain. EKGs and cardiac enzymes remains relatively unremarkable and negative. Patient chest pain is predictably relieved by nitroglycerin. So far is still continuing to have chest pain in spite of double dose proton pump inhibitor. Nuclear stress test showed probable mild ischemia in the mid anterior wall. In view of continuing chest pain and significant cardiac risk factors, feel that a repeat heart catheterization is indicated in spite of negative enzymes. This was related to the patient and also hospitalist who are arranging for the patient to be transferred to [facility] for his heart catheterization. Patient's primary care merchandise team manager is there. Patient did not get to see in GI specialist. - Time Time with patient: Greater than 35 minutes Medications reviewed and adjusted accordingly: Yes
[2017-12-03] MEDS: GABAPENTIN 400 MG CAPSULE PO SCH (21:50)
--- NOTE | 2017-12-04 00:03 | EKG REPORT ---
SEVERITY:- ABNORMAL ECG - SINUS RHYTHM NONSPECIFIC INTRAVENTRICULAR CONDUCTION DELAY : Confirmed by: Rowena Sigala MD 04-Dec-2017 00:03:02
== END 2017-12-03 22:54 | disposition short-term general hospital (02) | DRG 313 ==
LOC: ER 15:49 → EH 21:31 → 4S 12-01 23:31 → OBSVTOIN 12-03 15:18
PROVIDERS: ADMIT Internal Medicine; ATTEND Internal Medicine
DX: R07.9 Chest pain, unspecified (principal); I48.91 Unspecified atrial fibrillation; E11.9 Type 2 diabetes mellitus without complications; I48.0 Paroxysmal atrial fibrillation; F41.9 Anxiety disorder, unspecified; E66.9 Obesity, unspecified; G47.30 Sleep apnea, unspecified; G89.29 Other chronic pain; E78.5 Hyperlipidemia, unspecified; I10 Essential (primary) hypertension; I95.1 Orthostatic hypotension; J44.9 Chronic obstructive pulmonary disease, unspecified; K21.9 Gastro-esophageal reflux disease without esophagitis; Z86.711 Personal history of pulmonary embolism; Z90.49 Acquired absence of other specified parts of digestive tract; Z82.49 Family history of ischemic heart disease and other diseases of the circulatory system; Z88.6 Allergy status to analgesic agent; Z79.02 Long term (current) use of antithrombotics/antiplatelets; Z87.19 Personal history of other diseases of the digestive system
CPT/HCPCS: 36415; 71046; 78452; 80053; 80061; 82550; 82553; 82962; 83036; 83735; 83880; 84484; 85025; 85027; 85379; 85610; 93005; 93010; 93017; 93306; 99285; A9500; G0378; J1170; J2785; J3490; S0164

== ENCOUNTER → 2018-11-16 | Outpatient (CLI) | payer MEDICARE ==
--- NOTE | 2018-11-17 07:40 | WOMENS IMAGING REPORT ---
EXAM DESCRIPTION: 3D DX MAMMO BILAT; U/S BREAST UNILAT LIMITED COMPLETED DATE/TIME: 11/16/2018 8:32 am; 11/16/2018 7:56 am REASON FOR STUDY: N63.20 UNSPECIFIED LUMP IN THE LEFT BREAST, UNSPECIFIED QUADRANT N63.20 UNSPECIFI ED LUMP IN THE LEFT BREAST, UNSPECIFIED QUAD COMPARISON: CT chest 08/21/2017 EXAM PARAMETERS: Standard craniocaudal, exaggerated craniocaudad, 90 mediolateral and mediolateral oblique views of each breast recorded using digital acquisition and breast tomosynthesis. Ultrasound of the left male breast was also performed. Read with the assistance of CAD: .[employer] Supervisor Version 9.2 LIMITATIONS: None. FINDINGS: RIGHT BREAST MASSES: No suspicious masses. CALCIFICATIONS: No new or suspicious calcifications. ARCHITECTURAL DISTORTION: None. DEVELOPING DENSITY: None. ASYMMETRY: None noted. OTHER: No other significant findings. LEFT BREAST MASSES: No suspicious masses. CALCIFICATIONS: No new or suspicious calcifications. ARCHITECTURAL DISTORTION: None. DEVELOPING DENSITY: None. ASYMMETRY: None noted. OTHER: No other significant finding. Left male breast ultrasound: Patient indicates left breast pain posterior to the nipple. Trace gynecomastia is present in the ret roareolar region. No worrisome dominant mass. No acoustic absorption. IMPRESSION: Minimal left gynecomastia. Imaging of the right male breast is unremarkable BREAST DENSITY: a. The breasts are almost entirely fatty. BIRAD: ASSESSMENT: 2 Benign findings. RECOMMENDATION: RECOMMENDED FOLLOW UP: Clinical follow-up for gynecomastia. SPECIFIC INTERVENTION/IMAGING/CONSULTATION RECOMMENDED:Clinical follow-up for gynecomastia COMMUNICATION:Patient was notified by letter COMMENT: The patient has been notified of the results by letter per MQSA requirements. Additional no tification policies are in place for contacting patient with suspicious or incomplete findings. Quality ID #225: The [employer] recommends an annual screening mammogram for women aged 40 years or over. This facility utilizes a reminder system to ensure that all patients receive reminder letters, and/or direct phone calls for appointments. This includes reminders for routine scr eening mammograms, diagnostic mammograms, or other Breast Imaging Interventions when appropriate. Th is patient will be placed in the appropriate reminder system. TECHNICAL DOCUMENTATION: FINDING NUMBER: (1) ASSESSMENT: (1) JOB ID: [id number] [employer]- All Rights Reserved Reading location - IP/workstation name: [email or web address]
--- NOTE | 2018-11-17 07:40 | WOMENS IMAGING REPORT ---
EXAM DESCRIPTION: 3D DX MAMMO BILAT; U/S BREAST UNILAT LIMITED COMPLETED DATE/TIME: 11/16/2018 8:32 am; 11/16/2018 7:56 am REASON FOR STUDY: N63.20 UNSPECIFIED LUMP IN THE LEFT BREAST, UNSPECIFIED QUADRANT N63.20 UNSPECIFI ED LUMP IN THE LEFT BREAST, UNSPECIFIED QUAD COMPARISON: CT chest 08/21/2017 EXAM PARAMETERS: Standard craniocaudal, exaggerated craniocaudad, 90 mediolateral and mediolateral oblique views of each breast recorded using digital acquisition and breast tomosynthesis. Ultrasound of the left male breast was also performed. Read with the assistance of CAD: .[employer] Service Delivery Director Version 9.2 LIMITATIONS: None. FINDINGS: RIGHT BREAST MASSES: No suspicious masses. CALCIFICATIONS: No new or suspicious calcifications. ARCHITECTURAL DISTORTION: None. DEVELOPING DENSITY: None. ASYMMETRY: None noted. OTHER: No other significant findings. LEFT BREAST MASSES: No suspicious masses. CALCIFICATIONS: No new or suspicious calcifications. ARCHITECTURAL DISTORTION: None. DEVELOPING DENSITY: None. ASYMMETRY: None noted. OTHER: No other significant finding. Left male breast ultrasound: Patient indicates left breast pain posterior to the nipple. Trace gynecomastia is present in the ret roareolar region. No worrisome dominant mass. No acoustic absorption. IMPRESSION: Minimal left gynecomastia. Imaging of the right male breast is unremarkable BREAST DENSITY: a. The breasts are almost entirely fatty. BIRAD: ASSESSMENT: 2 Benign findings. RECOMMENDATION: RECOMMENDED FOLLOW UP: Clinical follow-up for gynecomastia. SPECIFIC INTERVENTION/IMAGING/CONSULTATION RECOMMENDED:Clinical follow-up for gynecomastia COMMUNICATION:Patient was notified by letter COMMENT: The patient has been notified of the results by letter per MQSA requirements. Additional no tification policies are in place for contacting patient with suspicious or incomplete findings. Quality ID #225: The [employer] recommends an annual screening mammogram for women aged 40 years or over. This facility utilizes a reminder system to ensure that all patients receive reminder letters, and/or direct phone calls for appointments. This includes reminders for routine scr eening mammograms, diagnostic mammograms, or other Breast Imaging Interventions when appropriate. Th is patient will be placed in the appropriate reminder system. TECHNICAL DOCUMENTATION: FINDING NUMBER: (1) ASSESSMENT: (1) JOB ID: [id number] [employer]- All Rights Reserved Reading location - IP/workstation name: [email or web address]
== END ==
LOC: WI 07:24
PROVIDERS: ATTEND Physician Assistant Medical
DX: N63.20 Unspecified lump in the left breast, unspecified quadrant (principal)
CPT/HCPCS: 76642; 77066; G0279; 77062

== ENCOUNTER → 2019-12-20 | Outpatient (CLI) | payer MEDICARE ==
--- NOTE | 2019-12-20 12:41 | RADIOLOGY REPORT (SQ) ---
EXAM DESCRIPTION: CT ABD/PELVIS WITH IV ORAL IMAGES COMPLETED DATE/TIME: 12/20/2019 8:59 am REASON FOR STUDY: UPPER ABDOMINAL PAIN, UNSPECIFIED R10.10 UPPER ABDOMINAL PAIN, UNSPECIFIED COMPARISON: 08/21/2017. TECHNIQUE: CT scan of the abdomen and pelvis performed with intravenous and oral contrast using clarisse milli scanning technique with dynamic intravenous contrast injection. Images reviewed with lung, soft t issue, and bone windows. Reconstructed coronal and sagittal MPR images reviewed. Delayed images for e valuation of the urinary system also acquired. All images stored on PACS. All CT scanners at this facility use dose modulation, iterative reconstruction, and/or weight based d osing when appropriate to reduce radiation dose to as low as reasonably achievable (ALARA). [facility]: Dose Right [facility]: CareDose [facility]: Dose Right [facility]: Teradose 4D [facility]: [place]_ CONTRAST TYPE AND DOSE: contrast/concentration: Isovue 350.00 mmol/ml; Total Contrast Delivered: 100 .0 ml; Total Saline Delivered: 72.0 ml RENAL FUNCTION: Creatinine 1.4. RADIATION DOSE: CT Rad equipment meets quality standard of care and radiation dose reduction techniq ues were employed. CTDIvol: 22.7 - 31.5 mGy. DLP: 3530 mGy-cm.. LIMITATIONS: Due to the patient's body habitus portions of the right abdomen were not included in th e images. FINDINGS: LOWER CHEST: No significant findings. No nodules or infiltrates. LIVER: Normal size. Diffuse fatty infiltration. No masses. No dilated ducts. SPLEEN: Normal size. No focal lesions. PANCREAS: No masses. No significant calcifications. No adjacent inflammation or peripancreatic fluid collections. Pancreatic duct not dilated. GALLBLADDER: Surgically absent. ADRENAL GLANDS: No significant masses or asymmetry. RIGHT KIDNEY AND URETER: Small cortical cyst. No solid masses. No significant calcification. No hydr onephrosis or hydroureter. LEFT KIDNEY AND URETER: No solid masses. No significant calcification. No hydronephrosis or hydrouret er. AORTA AND VESSELS: No aneurysm. No dissection. Renal arteries, SMA, celiac without stenosis. RETROPERITONEUM: No retroperitoneal adenopathy, hemorrhage or masses. BOWEL AND PERITONEAL CAVITY: No obstruction. No visualized masses. No free fluid. No inflammatory ch anges or thickening of bowel wall. APPENDIX: Not visualized. PELVIS: No significant masses. Normal bladder. No free fluid. ABDOMINAL WALL: No masses. No hernias. BONES: No significant or acute findings. OTHER: No other significant finding. IMPRESSION: FATTY INFILTRATION OF THE LIVER. SMALL CORTICAL CYST IN THE RIGHT KIDNEY. NO OTHER SIG NIFICANT OR ACUTE FINDINGS IN THE ABDOMEN OR PELVIS. TECHNICAL DOCUMENTATION: JOB ID: [id number] Quality ID # [id number]: Final reports with documentation of one or more dose reduction techniques (e.g., Au tomated exposure control, adjustment of the mA and/or kV according to patient size, use of iterative reconstruction technique) 2010 [employer]- All Rights Reserved Reading location - IP/workstation name: [email or web address]
== END ==
LOC: RAD 08:18
PROVIDERS: ATTEND Student in an Organized Health Care Education/Training Program
DX: R10.10 Upper abdominal pain, unspecified (principal)
CPT/HCPCS: 74177; 82565